=== PATIENT | male | born 1970 | race Caucasian/White ===

== ENCOUNTER → 2017-10-21 13:46 | Outpatient (CLI) | payer OTHER, SELFPAY ==
--- NOTE | 2017-10-21 13:51 | XR_ITS ---
XR wrist LT min 3V HISTORY: ITS.REASON: left wrist pain after fall (Pain distal ulna) ORDERING PHYSICIAN: VENKATA Shelby PATIENT AGE: 47 years COMPARISON: None FINDINGS: No fracture or dislocation. No lytic or blastic change. There is normal mineralization.. There are mild osteoarthritic changes at the first metacarpocarpal joint. A small cystic area is present in the mid aspect of the capitate 2 mm. IMPRESSION: No acute fracture
== END ==
PROVIDERS: PCP Emergency Medicine; Visit Provider Physician Assistant
DX: S69.92XA Unspecified injury of left wrist, hand and finger(s), initial encounter (principal)
CPT/HCPCS: 73110

== ENCOUNTER 2018-03-06 13:23 | Inpatient (IN) ==
--- NOTE | 2018-03-06 13:42 | Emergency Department Note ---
ED Disposition Clinical Impression: Diverticulitis Disposition: Admitted as Observation Condition on Discharge: Good Instructions: DI for Acute Abdomen Referrals: Monty Nur MD [Primary Care Provider] - Time of Disposition: 15:23 - Critical Care Critical Care Time: No Attestation: On , the high probability of a clinically significant, sudden or life threatening deterioration of the following system(s) required my full and direct attention, intervention and personal management. The time I documented below is in addition to time spent performing reported procedures but includes the following listed in this critical care notation. Medical Decision Making - Medical Records MR Comment: 306 pt with elevated wbc count, and stranding in llq, cw diverticulitis, ? free air is noted, awaiting official read. 319 has come back with diveticulitis with contained perf. call to PMD and surgery. have dw patient , including need for followup to exclude Cancer. 320 have discussed with Myles MCGOWAN surgery conciliator. read off reading and levaquin flagyl. 322 dw [place]. - [place] Inquiry Pt receiving controlled substance: No Vital Signs: 03/06/18 13:33 Temperature 99.2 F Temperature Source Temporal Artery Scan Pulse Rate [Right Brachial] 110 H Respiratory Rate 18 Blood Pressure [RIGHT ARM] 140/87 Blood Pressure Mean [RIGHT ARM] 104 Blood Pressure Source [RIGHT ARM] Automatic Cuff Blood Pressure Position [RIGHT ARM] Sitting 02 Sat by Pulse Oximetry 97 Oxygen Delivery Method Room Air - Lab Data Lab Results 03/06/18 13:40: WBC 16.2 H, RBC 4.95, Hgb 14.2, Hct 44.9, MCV 90.8, MCH 28.6, MCHC 31.5 L, RDW 12.9, Plt Count 217, MPV 8.2, Neut % (Auto) 77.9, Lymph % (Auto ) 14.4, [place] % (Auto) 6.4, Eos % (Auto) 1.0, Baso % (Auto) 0.3, Neut # (Auto) 12.6 H, Lymph # (Auto) 2.3, [place] # (Auto) 1.0, Eos # (Auto) 0.2, Baso # (Auto) 0.1, Total Counted 100, Neutrophils % (Manual) 74, Lymphocytes % (Manual) 12, Atypical Lymphs % 1.0, Monocytes % (Manual) 12 H, Eosinophils % (Manual) 1, Platelet Estimate Normal, RBC Morphology Normal 03/06/18 13:40: Sodium 140, Potassium 4.0, Chloride 103, Carbon Dioxide 27, Anion Gap 14.0, BUN 13, Creatinine 1.11, Estimated Creat Clear 135, Estimated GFR 71, Est GFR ( Amer) 86, Glucose 110 H, Calcium 9.1, Total Bilirubin 1.0, AST 15, ALT 42, Alkaline Phosphatase 79, Total Protein 8.2, Albumin 3.7, Globulin 4.5 H, Albumin/Globulin Ratio 0.8 L, Amylase 55, Lipase 140 Result diagrams: 03/06/18 13:40 03/06/18 13:40 Orders (Tests/Meds): ED MEDICATIONS Generic Name Dose Route Start Last Admin Trade Name Freq PRN Reason Stop Dose Admin Levofloxacin/Dextrose 750 mg in 150 mls @ 100 mls/hr 03/06/18 15:01 Levofloxacin 750mg/150ml Premix IV 03/06/18 16:30 ONCE ONE Protocol Metronidazole 100 mls @ 100 mls/hr 03/06/18 15:02 Flagyl 500mg/100ml Ivpb IV 03/06/18 16:01 ONCE ONE Protocol Discontinued Medications Generic Name Dose Route Start Last Admin Trade Name Freq PRN Reason Stop Dose Admin Sodium Chloride 1,000 mls @ 999 mls/hr 03/06/18 13:45 03/06/18 14:09 Sod Chlor 0.9% 1000ml Bag IV 03/06/18 14:45 999 mls/hr .[id number] JAZMIN Administration Ketorolac Tromethamine 15 mg 03/06/18 13:39 03/06/18 14:12 Toradol 30mg/Ml Vial IV 03/06/18 13:40 15 mg ONCE ONE Administration Ondansetron HCl 4 mg 03/06/18 13:44 03/06/18 14:12 Zofran 4mg/2ml Vial IV 03/06/18 13:45 4 mg ONCE ONE Administration ORDERS Category Date Time Status CT abdomen pelvis wo con Stat Cat Scan 03/06/18 13:38 Taken Urinalysis and Microscopic Stat Lab 03/06/18 13:38 Ordered General Adult HPI - General Chief complaint: Abdominal Pain Stated complaint: abd pain Time Seen by Provider: 03/06/18 13:35 Mode of Arrival: Ambulatory Limitations: No Limitations Description of Symptoms (Recalled from ER Triage Doc. by RN): COMPLAINING OF LEFT SIDE ABD PAIN AND LEFT SIDE IGUINAL/TESTICULAR PAIN THAT INCR. WITH URINATION; HISTORY OF DIVERTICULOSIS - History of Present Illness HPI narrative: Patient states yesterday morning he had onset of left lower quadrant abdominal pain crampy in nature moderate in severity has nausea denies vomiting or diarrhea denies fevers or chills he states the pain gets worse when he tries to urinate. Denies any radiation to the back he states it does radiate down to his left testicle. He denies any history of kidney stone he states he does have a history of diverticulosis. Denies fevers or chills - Related Data Home Medications Medication Instructions Recorded Confirmed No Known Home Medications 10/21/17 03/06/18 Allergies Allergy/AdvReac Type Severity Reaction Status Date / Time hydrocodone [HYDROCODONE] Allergy Unknown SEVERE Verified 03/06/18 13:38 HEADACHE [facility] History I have reviewed the patient's past medical history: Yes Laterality Cases: Left: Arthroscopy Knee Other Surgeries: Yes: Colonoscopy Amputation: No Fractures: No - Social History Educational Level: Completed High School Smoking Status: Former smoker Tobacco Type: cigarettes #Yrs smoked (if former smoker): 32 Smoking End Date: 04/2016 Alcohol Intake: current Alcohol Intake Frequency:: holidays/special occasions only Substance Use Type: denies use Occupational Status: employed - Psychiatric History Expresses thoughts of harming self/others: None Suicide Plan Description: No Plan Family Hx:: Cancer, Diabetes ROS Obtained: Yes All systems reviewed & no additional complaints Physical Exam - General General appearance: alert - Head Head exam: atraumatic - Eye Eye exam: Present: normal appearance - ENT ENT exam: Present: mucous membranes moist - Neck Neck exam: Present: normal inspection - Chest Chest inspection: Present: normal inspection - Respiratory Respiratory exam: Present: normal lung sounds bilaterally - Cardiovascular Cardiovascular exam: Present: regular rate - Abdominal Exam Abdominal exam: Present: soft. Absent: distention Abdominal tenderness: Present: LLQ - exam: Present: normal inspection. Absent: testicular tenderness - Extremities Exam Extremities exam: Present: normal inspection - Back Exam Back exam: Present: normal inspection Comment: Nonfocal costovertebral angle tenderness bilaterally - Neurological Exam Neurological exam: Present: alert - Psychiatric Psychiatric exam: Present: normal affect - Skin Skin exam: Present: warm - Lymphatic Lymphatic Findings: no adenopathy
[2018-03-06 13:53] LABS: Basophils # 0.1 K/mm3 (0-0.2); Basophils % 0.3 % (0.1-2.0); Eosinophils # 0.2 K/mm3 (0.0-0.4); Hematocrit 44.9 % (42.0-52.0); Hemoglobin 14.2 g/dL (14.1-18.0); Lymphocytes # 2.3 K/mm3 (0.7-4.5); Lymphocytes % 14.4 K/mm3 (10-50); Mean Corpuscular HGB Conc 31.5 g/dL (31.8-35.4); Mean Corpuscular Hemoglobin 28.6 pg (27.0-31.2); Mean Corpuscular Volume 90.8 fl (80-94); Mean Platelet Volume 8.2 fl (7.4-10.4); Monocytes % 6.4 % (1.7-9.3); Neutrophils # 12.6 K/mm3 (1.8-7.8); Neutrophils % 77.9 % (37.0-80.0); Platelet Count 217 K/mm3 (142-424); Red Blood Count 4.95 M/mm3 (4.60-6.20); Red Cell Distribution Width 12.9 % (11.5-17.5); White Blood Count 16.2 K/mm3 (4.8-10.8)
[2018-03-06 14:05] LABS: Albumin Level 3.7 gm/dL (3.4-5.0); Albumin/Globulin Ratio 0.8 (1.1-1.8); Calcium 9.1 mg/dL (8.5-10.1); Globulin 4.5 gm/dl (1.3-3.2); Total Protein,Serum 8.2 gm/dL (6.4-8.2)
[2018-03-06 14:08] LABS: Eosinophils % 1 % (0-3); Lymphocytes % 12 % (10-50); Monocytes % 12 % (2-9); Neutrophils % 74 % (42-76); RBC Morphology Normal; Total Cells Counted 100
[2018-03-06 17:24] LABS: Microscopic, Urine URINE MICROSCOPIC (MICROSCOPIC)
[2018-03-06 17:25] LABS: Appearance,Urine CLEAR (Clear); Bilirubin,Urine Negative (Negative); Blood, Urine 2+ (Negative); Color,Urine YELLOW (Yellow); Glucose,Urine (UA) Negative (Negative); Ketones,Urine Negative (Negative); Leukocyte Esterase,Urine Negative (Negative); Protein,Urine Negative (Negative); Specific Gravity, Urine 1.025 (1.005-1.030); Urobilinogen,Urine 0.2 EU/dl (0.2)
[2018-03-06 17:27] LABS: Mucus,Urine 2+ /lpf
--- NOTE | 2018-03-06 18:11 | Consult Report ---
*Admission Date: 03/06/18 *Chief complaint: Abdominal pain *History of present illness: This is a 47-year-old gentleman seen in consultation after presenting to the emergency department with abdominal pain. He had radiographic evidence of diverticulitis with a small focus of extraluminal air. The surgical service was consulted. Please see history of present illness forwarded from his emergency room visit below. Patient states yesterday morning he had onset of left lower quadrant abdominal pain crampy in nature moderate in severity has nausea denies vomiting or diarrhea denies fevers or chills he states the pain gets worse when he tries to urinate. Denies any radiation to the back he states it does radiate down to his left testicle. He denies any history of kidney stone he states he does have a history of diverticulosis. Denies fevers or chills NOTE: The patient does report a similar occurrence requiring hospitalization in 2003. He has been maintained on a high-fiber diet and Metamucil since this occurrence and has been asymptomatic until now. Review of Systems - Constitutional Denies chills - Eyes Denies change in vision - *Cardiovascular Denies chest pain - *Respiratory Denies cough - *Gastrointestinal Reports abdominal pain, Denies bright, red blood in stools, Denies black, tarry stools, Denies vomiting - Hematologic/Lymphatic Denies easy bleeding [facility] History Medical History: Denies:: Asthma, Coronary Artery Disease, Hepatitis Laterality Cases: Left: Arthroscopy Knee Other Surgeries: Yes: Colonoscopy Amputation: No Fractures: No - *Social History Educational Level: Completed College Smoking Status: Former smoker Tobacco Type: cigarettes #Yrs smoked (if former smoker): 32 Smoking End Date: 04/2016 Alcohol Intake: never Alcohol Intake Frequency:: holidays/special occasions only Substance Use Type: denies use Occupational Status: employed Housing: house Household Members: spouse - Psychiatric History Expresses thoughts of harming self/others: None Suicide Plan Description: No Plan *Family Hx:: Cancer, Diabetes Meds Home Medications Medication Instructions Recorded Confirmed Type No Known Home Medications 10/21/17 03/06/18 History Allergies Allergy/AdvReac Type Severity Reaction Status Date / Time hydrocodone [HYDROCODONE] Allergy Unknown SEVERE Verified 03/06/18 13:38 HEADACHE Exam Vital signs and Labs for Last 24 Hours: Temp Pulse Resp BP Pulse Ox 98.3 F 95 H 22 141/83 97 03/06/18 15:58 03/06/18 15:58 03/06/18 15:58 03/06/18 15:58 03/06/18 15:58 Laboratory Results - last 24 hr 03/06/18 13:40: WBC 16.2 H, RBC 4.95, Hgb 14.2, Hct 44.9, MCV 90.8, MCH 28.6, MCHC 31.5 L, RDW 12.9, Plt Count 217, MPV 8.2, Neut % (Auto) 77.9, Lymph % (Auto ) 14.4, [place] % (Auto) 6.4, Eos % (Auto) 1.0, Baso % (Auto) 0.3, Neut # (Auto) 12.6 H, Lymph # (Auto) 2.3, [place] # (Auto) 1.0, Eos # (Auto) 0.2, Baso # (Auto) 0.1, Total Counted 100, Neutrophils % (Manual) 74, Lymphocytes % (Manual) 12, Atypical Lymphs % 1.0, Monocytes % (Manual) 12 H, Eosinophils % (Manual) 1, Platelet Estimate Normal, RBC Morphology Normal 03/06/18 13:40: Sodium 140, Potassium 4.0, Chloride 103, Carbon Dioxide 27, Anion Gap 14.0, BUN 13, Creatinine 1.11, Estimated Creat Clear 135, Estimated GFR 71, Est GFR ( Amer) 86, Glucose 110 H, Calcium 9.1, Total Bilirubin 1.0, AST 15, ALT 42, Alkaline Phosphatase 79, Total Protein 8.2, Albumin 3.7, Globulin 4.5 H, Albumin/Globulin Ratio 0.8 L, Amylase 55, Lipase 140 03/06/18 17:15: Urine Color Yellow, Urine Appearance Clear, Urine pH 6.0, Ur Specific [place] 1.025, Urine Protein Negative, Urine Glucose (UA) Negative, Urine Ketones Negative, Urine Blood 2+, Urine Nitrate Negative, Urine Bilirubin Negative, Urine Urobilinogen 0.2, Ur Leukocyte Esterase Negative, Urine RBC 10- 20, Urine WBC 3-5, Urine Mucus 2+ I & O for Last 24 hours: Intake & Output 03/04/18 03/05/18 03/06/18 03/07/18 11:59 11:59 11:59 11:59 Intake Total 0 / 0 Output Total 400 / 400 Balance -400 / -400 Weight 263 lb - Constitutional no acute distress - *Routine Neck Exam Present: full ROM - *Routine Respiratory Exam Absent: respiratory distress - *Routine Abdominal Exam Present: soft, tenderness Comments: LLQ Results - Labs 03/06/18 13:40 03/06/18 13:40 Laboratory Results - last 24 hr 03/06/18 13:40: WBC 16.2 H, RBC 4.95, Hgb 14.2, Hct 44.9, MCV 90.8, MCH 28.6, MCHC 31.5 L, RDW 12.9, Plt Count 217, MPV 8.2, Neut % (Auto) 77.9, Lymph % (Auto ) 14.4, [place] % (Auto) 6.4, Eos % (Auto) 1.0, Baso % (Auto) 0.3, Neut # (Auto) 12.6 H, Lymph # (Auto) 2.3, [place] # (Auto) 1.0, Eos # (Auto) 0.2, Baso # (Auto) 0.1, Total Counted 100, Neutrophils % (Manual) 74, Lymphocytes % (Manual) 12, Atypical Lymphs % 1.0, Monocytes % (Manual) 12 H, Eosinophils % (Manual) 1, Platelet Estimate Normal, RBC Morphology Normal 03/06/18 13:40: Sodium 140, Potassium 4.0, Chloride 103, Carbon Dioxide 27, Anion Gap 14.0, BUN 13, Creatinine 1.11, Estimated Creat Clear 135, Estimated GFR 71, Est GFR ( Amer) 86, Glucose 110 H, Calcium 9.1, Total Bilirubin 1.0, AST 15, ALT 42, Alkaline Phosphatase 79, Total Protein 8.2, Albumin 3.7, Globulin 4.5 H, Albumin/Globulin Ratio 0.8 L, Amylase 55, Lipase 140 03/06/18 17:15: Urine Color Yellow, Urine Appearance Clear, Urine pH 6.0, Ur Specific [place] 1.025, Urine Protein Negative, Urine Glucose (UA) Negative, Urine Ketones Negative, Urine Blood 2+, Urine Nitrate Negative, Urine Bilirubin Negative, Urine Urobilinogen 0.2, Ur Leukocyte Esterase Negative, Urine RBC 10- 20, Urine WBC 3-5, Urine Mucus 2+ - Imaging CT scan - abdomen: report reviewed, image reviewed CT scan - pelvis: report reviewed, image reviewed Assessment and Plan (1) Diverticulitis Current visit: Yes Status: Acute Category: Medical Code(s): K57.92 - Diverticulitis of intestine, part unspecified, without perforation or abscess without bleeding Small focus of extraluminal air. Continue IV antibiotics as ordered per emergency room physician Serial abdominal exams Repeat CBC in a.m. Clear liquids with no carbonation for now If the patient continues to improve, he will benefit from colonoscopy in 6-8 weeks. If he regresses, he may require urgent intervention during this hospitalization. I discussed the risks and benefits of surgical intervention ( in particular elective surgery as this is his second occurrence requiring hospitalization). He has been without symptoms since his 2003 hospitalization. He understands the risks and benefits and states that he "only wants surgery if it is absolutely necessary".
[2018-03-07 07:12] LABS: Basophils % 0.2 % (0.1-2.0); Eosinophils # 0.1 K/mm3 (0.0-0.4); Eosinophils % 0.4 % (0.1-12.0); Hematocrit 39.4 % (42.0-52.0); Lymphocytes # 1.8 K/mm3 (0.7-4.5); Lymphocytes % 12.3 K/mm3 (10-50); Mean Corpuscular HGB Conc 31.4 g/dL (31.8-35.4); Mean Corpuscular Hemoglobin 28.7 pg (27.0-31.2); Mean Corpuscular Volume 91.4 fl (80-94); Mean Platelet Volume 8.5 fl (7.4-10.4); Monocytes # 1.2 K/mm3 (0.1-1.0); Monocytes % 8.2 % (1.7-9.3); Neutrophils # 11.5 K/mm3 (1.8-7.8); Neutrophils % 78.9 % (37.0-80.0); Platelet Count 178 K/mm3 (142-424); Red Blood Count 4.31 M/mm3 (4.60-6.20); Red Cell Distribution Width 12.8 % (11.5-17.5); White Blood Count 14.6 K/mm3 (4.8-10.8)
[2018-03-07 07:30] LABS: Hemoglobin 12.5 g/dL (14.1-18.0)
--- NOTE | 2018-03-07 07:34 | Pharmacy Consult Notes ---
[facility] Pharmacy VTE Monitoring - Patient Demographics Admission date: 03/06/18 Report Date: 03/07/18 Time: 07:34 Allergies/Adverse Reactions: Patient Allergies hydrocodone [HYDROCODONE] Allergy (Unknown, Verified 03/06/18 13:38) SEVERE HEADACHE Height: 1.91 m Weight: 119.295 kg Patient Problems: Current Active Problems Diverticulitis (Acute) - VTE Risk Labs: VTE Related Lab Results Hgb 12.5 g/dL (14.1-18.0) L D 03/07/18 06:13 Hct 39.4 % (42.0-52.0) L 03/07/18 06:13 Plt Count 178 K/mm3 (142-424) 03/07/18 06:13 BUN 13 mg/dL (7-18) 03/06/18 13:40 Creatinine 1.11 mg/dL (0.70-1.30) 03/06/18 13:40 Estimated Creat Clear 135 mL/min (0-300) 03/06/18 13:40 Was VTE Risk Assessment Performed: Yes VTE Score: 1 VTE Risk Level: Very Low Risk - Prophylaxis VTE Prophylaxis Ordered?: Yes Types of VTE Prophylaxis: TEDS Knee High Location of Applied Device: Bilateral Lower Extremeties - VTE Diagnosis Confirmed Treatment or plan recommended: Continue Current Treatment
--- NOTE | 2018-03-07 07:59 | History & Physical Report ---
*Admission Date: 03/06/18 *History of present illness: This is a 47-year-old gentleman seen in consultation after presenting to the emergency department with abdominal pain. He had radiographic evidence of diverticulitis with a small focus of extraluminal air. The surgical service was consulted. Please see history of present illness forwarded from his emergency room visit below. Patient states yesterday morning he had onset of left lower quadrant abdominal pain crampy in nature moderate in severity has nausea denies vomiting or diarrhea denies fevers or chills he states the pain gets worse when he tries to urinate. Denies any radiation to the back he states it does radiate down to his left testicle. He denies any history of kidney stone he states he does have a history of diverticulosis. Denies fevers or chills NOTE: The patient does report a similar occurrence requiring hospitalization in 2003. He has been maintained on a high-fiber diet and Metamucil since this occurrence and has been asymptomatic until now. tient states yesterday morning he had onset of left lower quadrant abdominal pain crampy in nature moderate in severity has nausea denies vomiting or diarrhea denies fevers or chills he states the pain gets worse when he tries to urinate. Denies any radiation to the back he states it does radiate down to his left testicle. He denies any history of kidney stone he states he does have a history of diverticulosis. Denies fevers or chills [facility] History I have reviewed the patient's past medical history: Yes Medical History: Denies:: Asthma, Coronary Artery Disease, Hepatitis Laterality Cases: Left: Arthroscopy Knee Other Surgeries: Yes: Colonoscopy Amputation: No Fractures: No - *Social History Educational Level: Completed College Smoking Status: Former smoker Tobacco Type: cigarettes #Yrs smoked (if former smoker): 32 Smoking End Date: 04/2016 Alcohol Intake: never Alcohol Intake Frequency:: holidays/special occasions only Substance Use Type: denies use Occupational Status: employed Housing: house Household Members: spouse - Psychiatric History Expresses thoughts of harming self/others: None Suicide Plan Description: No Plan *Family Hx:: Cancer, Diabetes Review of Systems - Review of Systems Review of systems:: pertinent systems reviewed and negative unless documented below - Constitutional Denies fever(s) - Eyes Denies change in vision - ENT Denies neck pain - *Cardiovascular Denies chest pain - *Respiratory Denies cough - *Gastrointestinal Reports abdominal pain - *Genitourinary Denies blood in urine - *Musculoskeletal Denies joint pain - Integumentary/Breasts Denies rash - *Neurologic Denies sensory deficit Meds Home Medications Medication Instructions Recorded Confirmed Type No Known Home Medications 10/21/17 03/06/18 History Allergies Allergy/AdvReac Type Severity Reaction Status Date / Time hydrocodone [HYDROCODONE] Allergy Unknown SEVERE Verified 03/06/18 13:38 HEADACHE Exam Vital signs and Labs for Last 24 Hours: Temp Pulse Resp BP Pulse Ox 98.4 F 94 H 18 127/75 95 03/07/18 04:00 03/07/18 04:00 03/07/18 04:00 03/07/18 04:00 03/07/18 04:00 Laboratory Results - last 24 hr 03/06/18 13:40: WBC 16.2 H, RBC 4.95, Hgb 14.2, Hct 44.9, MCV 90.8, MCH 28.6, MCHC 31.5 L, RDW 12.9, Plt Count 217, MPV 8.2, Neut % (Auto) 77.9, Lymph % (Auto ) 14.4, [place] % (Auto) 6.4, Eos % (Auto) 1.0, Baso % (Auto) 0.3, Neut # (Auto) 12.6 H, Lymph # (Auto) 2.3, [place] # (Auto) 1.0, Eos # (Auto) 0.2, Baso # (Auto) 0.1, Total Counted 100, Neutrophils % (Manual) 74, Lymphocytes % (Manual) 12, Atypical Lymphs % 1.0, Monocytes % (Manual) 12 H, Eosinophils % (Manual) 1, Platelet Estimate Normal, RBC Morphology Normal 03/06/18 13:40: Sodium 140, Potassium 4.0, Chloride 103, Carbon Dioxide 27, Anion Gap 14.0, BUN 13, Creatinine 1.11, Estimated Creat Clear 135, Estimated GFR 71, Est GFR ( Amer) 86, Glucose 110 H, Calcium 9.1, Total Bilirubin 1.0, AST 15, ALT 42, Alkaline Phosphatase 79, Total Protein 8.2, Albumin 3.7, Globulin 4.5 H, Albumin/Globulin Ratio 0.8 L, Amylase 55, Lipase 140 03/06/18 17:15: Urine Color Yellow, Urine Appearance Clear, Urine pH 6.0, Ur Specific [place] 1.025, Urine Protein Negative, Urine Glucose (UA) Negative, Urine Ketones Negative, Urine Blood 2+, Urine Nitrate Negative, Urine Bilirubin Negative, Urine Urobilinogen 0.2, Ur Leukocyte Esterase Negative, Urine RBC 10- 20, Urine WBC 3-5, Urine Mucus 2+ 03/07/18 06:13: WBC 14.6 H, RBC 4.31 L, Hgb 12.5 L D, Hct 39.4 L, MCV 91.4, MCH 28.7, MCHC 31.4 L, RDW 12.8, Plt Count 178, MPV 8.5, Neut % (Auto) 78.9, Lymph % (Auto) 12.3, [place] % (Auto) 8.2, Eos % (Auto) 0.4, Baso % (Auto) 0.2, Neut # ( Auto) 11.5 H, Lymph # (Auto) 1.8, [place] # (Auto) 1.2 H, Eos # (Auto) 0.1, Baso # (Auto) 0.0 I & O for Last 24 hours: Intake & Output 03/04/18 03/05/18 03/06/18 03/07/18 11:59 11:59 11:59 11:59 Intake Total 1450 / 1450 Output Total 400 / 400 Balance 1050 / 1050 Weight 263 lb - Constitutional no acute distress - *Routine HEENT Exam Head: Present: normocephalic Eye: Present: EOMI, PERRL ENT: Present: mucous membranes dry - *Routine Neck Exam Present: supple - *Routine Respiratory Exam Present: CTA bilaterally - *Routine Cardiovascular Exam Present: RRR, murmur - *Routine Abdominal Exam Present: soft, tenderness - *Routine Extremities Exam Present: full ROM - *Routine Skin Exam Present: intact - *Routine Neurological Exam Present: alert, oriented X3, CN II-XII intact - Routine Psychiatric Exam Present: normal affect H&P: Result - Labs Labs: Short CBC 03/06/18 03/07/18 Range/Units 13:40 06:13 WBC 16.2 H 14.6 H (4.8-10.8) K/mm3 Hgb 14.2 12.5 L D (14.1-18.0) g/dL Hct 44.9 39.4 L (42.0-52.0) % Plt Count 217 178 (142-424) K/mm3 BMP 03/06/18 13:40 Sodium 140 Potassium 4.0 Chloride 103 Carbon Dioxide 27 BUN 13 Creatinine 1.11 Glucose 110 H Calcium 9.1 Liver Function 03/06/18 Range/Units 13:40 Total Bilirubin 1.0 (0.2-1.0) mg/dL AST 15 (15-37) U/L ALT 42 (12-78) U/L Alkaline Phosphatase 79 (46-116) U/L Albumin 3.7 (3.4-5.0) gm/dL Urine 03/06/18 Range/Units 17:15 Urine Color Yellow (Yellow) Urine Appearance Clear (Clear) Urine pH 6.0 (5.0-8.5) Ur Specific [place] 1.025 (1.005-1.030) Urine Protein Negative (Negative) Urine Glucose (UA) Negative (Negative) Assessment and Plan (1) Diverticulitis Current visit: Yes Status: Acute Category: Medical Code(s): K57.92 - Diverticulitis of intestine, part unspecified, without perforation or abscess without bleeding
--- NOTE | 2018-03-07 08:13 | Progress Note ---
Subjective Patient reports: other (A little worse since last night...about the same as "in the ER") Exam Vital signs and Labs for Last 24 Hours: Temp Pulse Resp BP Pulse Ox 98.4 F 94 H 18 127/75 95 03/07/18 04:00 03/07/18 04:00 03/07/18 04:00 03/07/18 04:00 03/07/18 04:00 Laboratory Results - last 24 hr 03/06/18 13:40: WBC 16.2 H, RBC 4.95, Hgb 14.2, Hct 44.9, MCV 90.8, MCH 28.6, MCHC 31.5 L, RDW 12.9, Plt Count 217, MPV 8.2, Neut % (Auto) 77.9, Lymph % (Auto ) 14.4, [place] % (Auto) 6.4, Eos % (Auto) 1.0, Baso % (Auto) 0.3, Neut # (Auto) 12.6 H, Lymph # (Auto) 2.3, [place] # (Auto) 1.0, Eos # (Auto) 0.2, Baso # (Auto) 0.1, Total Counted 100, Neutrophils % (Manual) 74, Lymphocytes % (Manual) 12, Atypical Lymphs % 1.0, Monocytes % (Manual) 12 H, Eosinophils % (Manual) 1, Platelet Estimate Normal, RBC Morphology Normal 03/06/18 13:40: Sodium 140, Potassium 4.0, Chloride 103, Carbon Dioxide 27, Anion Gap 14.0, BUN 13, Creatinine 1.11, Estimated Creat Clear 135, Estimated GFR 71, Est GFR ( Amer) 86, Glucose 110 H, Calcium 9.1, Total Bilirubin 1.0, AST 15, ALT 42, Alkaline Phosphatase 79, Total Protein 8.2, Albumin 3.7, Globulin 4.5 H, Albumin/Globulin Ratio 0.8 L, Amylase 55, Lipase 140 03/06/18 17:15: Urine Color Yellow, Urine Appearance Clear, Urine pH 6.0, Ur Specific [place] 1.025, Urine Protein Negative, Urine Glucose (UA) Negative, Urine Ketones Negative, Urine Blood 2+, Urine Nitrate Negative, Urine Bilirubin Negative, Urine Urobilinogen 0.2, Ur Leukocyte Esterase Negative, Urine RBC 10- 20, Urine WBC 3-5, Urine Mucus 2+ 03/07/18 06:13: WBC 14.6 H, RBC 4.31 L, Hgb 12.5 L D, Hct 39.4 L, MCV 91.4, MCH 28.7, MCHC 31.4 L, RDW 12.8, Plt Count 178, MPV 8.5, Neut % (Auto) 78.9, Lymph % (Auto) 12.3, [place] % (Auto) 8.2, Eos % (Auto) 0.4, Baso % (Auto) 0.2, Neut # ( Auto) 11.5 H, Lymph # (Auto) 1.8, [place] # (Auto) 1.2 H, Eos # (Auto) 0.1, Baso # (Auto) 0.0 I & O for Last 24 hours: Intake & Output 03/04/18 03/05/18 03/06/18 03/07/18 11:59 11:59 11:59 11:59 Intake Total 1450 / 1450 Output Total 400 / 400 Balance 1050 / 1050 Weight 263 lb - Constitutional no acute distress - *Routine Respiratory Exam Absent: respiratory distress - *Routine Cardiovascular Exam Present: RRR - *Routine Abdominal Exam Present: soft, tenderness Progress Note: A&P (1) Diverticulitis Status: Acute Assessment and plan: Stable on abx continue abx continue serial exams Current Visit: Yes
--- NOTE | 2018-03-08 07:10 | Progress Note ---
Subjective Patient reports: no new complaints (feels "a little better") Exam Vital signs and Labs for Last 24 Hours: Temp Pulse Resp BP Pulse Ox 97.8 F 74 16 113/70 93 L 03/08/18 04:00 03/08/18 04:00 03/08/18 04:00 03/08/18 04:00 03/08/18 04:00 Laboratory Results - last 24 hr 03/07/18 06:13: WBC 14.6 H, RBC 4.31 L, Hgb 12.5 L D, Hct 39.4 L, MCV 91.4, MCH 28.7, MCHC 31.4 L, RDW 12.8, Plt Count 178, MPV 8.5, Neut % (Auto) 78.9, Lymph % (Auto) 12.3, [place] % (Auto) 8.2, Eos % (Auto) 0.4, Baso % (Auto) 0.2, Neut # ( Auto) 11.5 H, Lymph # (Auto) 1.8, [place] # (Auto) 1.2 H, Eos # (Auto) 0.1, Baso # (Auto) 0.0 I & O for Last 24 hours: Intake & Output 03/05/18 03/06/18 03/07/18 03/08/18 11:59 11:59 11:59 11:59 Intake Total 2130 / 2130 780 / 780 Output Total 400 / 400 Balance 1730 / 1730 780 / 780 Weight 263 lb 263 lb 0.007 oz - Constitutional no acute distress - *Routine Respiratory Exam Absent: respiratory distress - *Routine Cardiovascular Exam Present: RRR - *Routine Abdominal Exam Present: soft Comments: somewhat less TTP Progress Note: A&P (1) Diverticulitis Status: Acute Assessment and plan: Slowly improving. Continue abx Repeat CBC in AM Full liquids Current Visit: Yes
--- NOTE | 2018-03-08 08:59 | Progress Note ---
Internal Medicine - PN: Subj *Date: 03/08/18 *Time: 08:54 Interval history: pt with continued pain but some improvement- saw surg this am Exam Vital signs and Labs for Last 24 Hours: Temp Pulse Resp BP Pulse Ox 98.9 F 87 18 135/89 96 03/08/18 07:27 03/08/18 07:27 03/08/18 07:27 03/08/18 07:27 03/08/18 07:27 I & O for Last 24 hours: Intake & Output 03/05/18 03/06/18 03/07/18 03/08/18 11:59 11:59 11:59 11:59 Intake Total 2130 / 2130 780 / 780 Output Total 400 / 400 Balance 1730 / 1730 780 / 780 Weight 263 lb 263 lb 0.007 oz - Constitutional no acute distress - *Routine HEENT Exam Head: Present: normocephalic Eye: Present: EOMI, PERRL ENT: Present: mucous membranes dry - *Routine Neck Exam Present: supple - *Routine Respiratory Exam Absent: respiratory distress - *Routine Cardiovascular Exam Present: RRR. Absent: murmur - *Routine Abdominal Exam Present: tenderness - *Routine Extremities Exam Present: full ROM - *Routine Skin Exam Present: intact - *Routine Neurological Exam Present: alert, oriented X3, CN II-XII intact - Routine Psychiatric Exam Present: normal affect Assessment and Plan (1) Diverticulitis Current visit: Yes Status: Acute Category: Medical Code(s): K57.92 - Diverticulitis of intestine, part unspecified, without perforation or abscess without bleeding
[2018-03-09 06:55] LABS: Basophils % 0.3 % (0.1-2.0); Eosinophils # 0.2 K/mm3 (0.0-0.4); Hematocrit 39.6 % (42.0-52.0); Hemoglobin 12.6 g/dL (14.1-18.0); Lymphocytes # 1.6 K/mm3 (0.7-4.5); Lymphocytes % 21.2 K/mm3 (10-50); Mean Corpuscular HGB Conc 31.7 g/dL (31.8-35.4); Mean Corpuscular Hemoglobin 28.9 pg (27.0-31.2); Mean Corpuscular Volume 91.1 fl (80-94); Mean Platelet Volume 8.5 fl (7.4-10.4); Monocytes # 0.6 K/mm3 (0.1-1.0); Neutrophils # 5.2 K/mm3 (1.8-7.8); Neutrophils % 67.6 % (37.0-80.0); Platelet Count 216 K/mm3 (142-424); Red Blood Count 4.35 M/mm3 (4.60-6.20); Red Cell Distribution Width 12.4 % (11.5-17.5); White Blood Count 7.7 K/mm3 (4.8-10.8)
--- NOTE | 2018-03-09 08:46 | Progress Note ---
Subjective Patient reports: no new complaints Exam Vital signs and Labs for Last 24 Hours: Temp Pulse Resp BP Pulse Ox 98.1 F 73 18 135/87 97 03/09/18 08:00 03/09/18 08:00 03/09/18 08:00 03/09/18 08:00 03/09/18 08:00 Laboratory Results - last 24 hr 03/09/18 06:10: WBC 7.7 D, RBC 4.35 L, Hgb 12.6 L, Hct 39.6 L, MCV 91.1, MCH 28.9, MCHC 31.7 L, RDW 12.4, Plt Count 216, MPV 8.5, Neut % (Auto) 67.6, Lymph % (Auto) 21.2, [place] % (Auto) 8.0, Eos % (Auto) 3.0, Baso % (Auto) 0.3, Neut # ( Auto) 5.2, Lymph # (Auto) 1.6, [place] # (Auto) 0.6, Eos # (Auto) 0.2, Baso # (Auto ) 0.0 I & O for Last 24 hours: Intake & Output 03/06/18 03/07/18 03/08/18 03/09/18 11:59 11:59 11:59 11:59 Intake Total 2130 / 2130 1929 / 1929 4826 / 4826 Output Total 400 / 400 Balance 1730 / 1730 1929 / 1929 4826 / 4826 Weight 263 lb 263 lb 0.007 oz Narrative: WBC now normal - Constitutional no acute distress - *Routine Cardiovascular Exam Present: RRR - *Routine Abdominal Exam Present: soft (somewhat less TTP) Progress Note: A&P (1) Diverticulitis Status: Acute Assessment and plan: Improving on antibiotics Okay from surgical standpoint for discharge home with close follow-up Continue antibiotics as outpatient (OK to transition to p.o.) Soft/low residue diet Current Visit: Yes
--- NOTE | 2018-03-09 09:02 | Discharge Summary ---
General - General Admission date:: 03/06/18 Discharge date: 03/09/18 HPI HPI: This is a 47-year-old gentleman seen in consultation after presenting to the emergency department with abdominal pain. He had radiographic evidence of diverticulitis with a small focus of extraluminal air. The surgical service was consulted. Please see history of present illness forwarded from his emergency room visit below. Patient states yesterday morning he had onset of left lower quadrant abdominal pain crampy in nature moderate in severity has nausea denies vomiting or diarrhea denies fevers or chills he states the pain gets worse when he tries to urinate. Denies any radiation to the back he states it does radiate down to his left testicle. He denies any history of kidney stone he states he does have a history of diverticulosis. Denies fevers or chills NOTE: The patient does report a similar occurrence requiring hospitalization in 2003. He has been maintained on a high-fiber diet and Metamucil since this occurrence and has been asymptomatic until now. tient states yesterday morning he had onset of left lower quadrant abdominal pain crampy in nature moderate in severity has nausea denies vomiting or diarrhea denies fevers or chills he states the pain gets worse when he tries to urinate. Denies any radiation to the back he states it does radiate down to his left testicle. He denies any history of kidney stone he states he does have a history of diverticulosis. Denies fevers or chills Hospital Course Hospital Course: pt with slow but steady improvement with ivf and abx with improvement in diet and was seen by surg and will have abx and will follow up with dr hensley next week Objective Vital signs: Temp Pulse Resp BP Pulse Ox 98.1 F 73 18 135/87 97 03/09/18 08:00 03/09/18 08:00 03/09/18 08:00 03/09/18 08:00 03/09/18 08:00 no acute distress - *Routine HEENT Exam Head: Present: normocephalic Eye: Present: EOMI, PERRL ENT: Present: mucous membranes dry - *Routine Neck Exam Present: supple - *Routine Respiratory Exam Present: CTA bilaterally - *Routine Cardiovascular Exam Present: RRR. Absent: murmur - *Routine Abdominal Exam Present: soft, tenderness - *Routine Extremities Exam Present: full ROM - *Routine Skin Exam Present: intact - *Routine Neurological Exam Present: alert, oriented X3, CN II-XII intact - Routine Psychiatric Exam Present: normal affect Results Labs on day of discharge: Labs from last 24 hours 03/09/18 06:10 WBC 7.7 D RBC 4.35 L Hgb 12.6 L Hct 39.6 L MCV 91.1 MCH 28.9 MCHC 31.7 L RDW 12.4 Plt Count 216 MPV 8.5 Neut % (Auto) 67.6 Lymph % (Auto) 21.2 [place] % (Auto) 8.0 Eos % (Auto) 3.0 Baso % (Auto) 0.3 Neut # (Auto) 5.2 Lymph # (Auto) 1.6 [place] # (Auto) 0.6 Eos # (Auto) 0.2 Baso # (Auto) 0.0 DS: Diagnosis - Discharge Diagnosis (1) Diverticulitis Status: Acute Discharge Plan - Patient Discharge Instructions ACTIVITY: Continue current activity DIET: continue same diet, other (soft / low residue diet) - Follow up Plan Follow up with: Fabian Hensley MD [Staff Physician] - 1 week Disposition: Home, Self-Prison Medications: Home Medications Medication Instructions Recorded Confirmed Type No Known Home Medications 10/21/17 03/06/18 History Prescriptions/Medication Reconciliation: New levoFLOXacin [Levaquin 500mg tab] 500 mg PO DAILY #14 tab metroNIDAZOLE [Flagyl] 500 mg PO TID 14 Days tablet metroNIDAZOLE [Flagyl] 500 mg PO TID 14 Days #42 tab levoFLOXacin [Levaquin 500mg tab] 500 mg PO DAILY #14 tab No Action No Known Home Medications
== END 2018-03-09 11:01 | disposition home or self-care (01) ==
LOC: 2ND 13:23 → ER 13:23 → OBSVTOIN 15:50 → 2ND 15:52
PROVIDERS: ADMIT Emergency Medicine; ATTEND Emergency Medicine
CPT/HCPCS: 36415; 74176; 80053; 81001; 82150; 83690; 85007; 85025; 96365; 96366; 96375; 99283; J1956; J2405

== ENCOUNTER → 2018-08-18 15:22 | Outpatient (CLI) | payer OTHER, SELFPAY ==
--- NOTE | 2018-08-18 15:24 | MR_ITS ---
MR shoulder LT wo con HISTORY:Left shoulder pain radiating down the arm with weakness ITS.REASON: exclude a rotator cuff tear ORDERING PHYSICIAN: Lan Farr MD PATIENT AGE: 48 years Comparison: 08/02/2018 TECHNIQUE: Standard multiplanar multiecho sequences are performed without contrast. FINDINGS: There are mild hypertrophic changes of the acromioclavicular joint superiorly not resulting in subacromial stenosis. There is however some hypertrophic change along the inferior aspect of the acromion causing some mild subacromial stenosis. There is mild thickening of the supraspinatus and infraspinatus tendons but no evidence of rotator cuff tear. There is a triangular-shaped area of bone marrow edema in the humeral head measuring approximately 15 x 12 mm and may be due to an area of avascular necrosis. Edema is also noted in the greater tuberosity region nonspecific and may be seen with arthritic changes. There is thickening of the subscapularis tendon suggesting tendinopathy/tendinosis. The teres minor tendon has an unremarkable appearance. There is mild degree of motion artifact on the axial sequence. No obvious labral tear. IMPRESSION: 1. No evidence of rotator cuff tear. 2. Tendinopathy/tendinosis of the supraspinatus, infraspinatus, subscapularis tendons. 3. Irregular shaped area of bone marrow edema in the humeral head anteriorly which may be seen with avascular necrosis along with some edema also at the base of the greater tuberosity which may be seen with rotator cuff disease and arthritic change.
== END ==
PROVIDERS: PCP Emergency Medicine; Visit Provider Orthopaedic Surgery
DX: M75.42 Impingement syndrome of left shoulder (principal)
CPT/HCPCS: 73221

== ENCOUNTER 2018-10-20 09:00 | Outpatient (RCR) | payer OTHER, SELFPAY ==
--- NOTE | 2018-09-02 10:22 | HMH.OTOPEV ---
PHYSICIAN CERTIFICATION: I certify the specified therapy services for Rasheedjoseph Kelley Hayder are required, authorized, and reviewed every 30 days.
== END 2018-10-20 09:05 | disposition home or self-care (01) ==
LOC: OT 09:00
PROVIDERS: Visit Provider Orthopaedic Surgery
DX: M77.12 Lateral epicondylitis, left elbow (principal); M75.22 Bicipital tendinitis, left shoulder; M25.512 Pain in left shoulder
CPT/HCPCS: 97014; 97033; 97110; 97165; G0283

== ENCOUNTER → 2019-05-15 13:33 | Outpatient (CLI) | payer OTHER, SELFPAY ==
[2019-05-15 13:54] LABS: Basophils % 0.4 % (0.1-2.0); Eosinophils # 0.1 K/mm3 (0.0-0.4); Hematocrit 45.5 % (42.0-52.0); Hemoglobin 14.7 g/dL (14.1-18.0); Lymphocytes # 2.3 K/mm3 (0.7-4.5); Lymphocytes % 25.7 % (10-50); Mean Corpuscular HGB Conc 32.3 g/dL (31.8-35.4); Mean Corpuscular Hemoglobin 30.1 pg (27.0-31.2); Mean Corpuscular Volume 93.4 fl (80-94); Mean Platelet Volume 8.8 fl (7.4-10.4); Monocytes # 0.7 K/mm3 (0.1-1.0); Monocytes % 7.4 % (1.7-9.3); Neutrophils # 5.9 K/mm3 (1.8-7.8); Neutrophils % 65.4 % (37.0-80.0); Platelet Count 251 K/mm3 (142-424); Red Blood Count 4.88 M/mm3 (4.60-6.20); Red Cell Distribution Width 13.4 % (11.5-17.5)
[2019-05-15 14:38] LABS: Alanine Aminotransferase 64 U/L (12-78); Alkaline Phosphatase 102 U/L (46-116); Anion Gap 14.5 mEq/L (5-15); Aspartate Amino Transferase 31 U/L (15-37); Bilirubin,Total 0.3 mg/dL (0.2-1.0); Blood Urea Nitrogen 17 mg/dL (7-18); Calcium 9.3 mg/dL (8.5-10.1); Carbon Dioxide 27 mmol/L (21.0-32.0); Chloride 103 mmol/L (98-107); Chol/HDL Ratio 4.7 (1-3.5); Cholesterol 165 mg/dL (140-200); Creatinine,Serum 1.12 mg/dL (0.70-1.30); Estimated Glomerular Filt Rate 70 ml/min (>60); Free T4 (Free Thyroxine) 1.12 ng/dl (0.76-1.46); GFR (African American) 84 ML/MIN (>60); Globulin 3.9 gm/dl (1.3-3.2); Glucose 84 mg/dL (74-106); HDL Cholesterol 35 mg/dL (27-67); LDL Cholesterol 97 mg/dL (0-130); Potassium 4.5 mmoL/L (3.5-5.1); Sodium 140 mmol/L (136-145); Thyroid Stimulating Hormone 1.47 uIU/ml (0.358-3.740); Total Protein,Serum 7.9 gm/dL (6.4-8.2); Triglycerides 167 mg/dL (30-200); VLDL Cholesterol 33 mg/dL (0-40)
[2019-05-15 18:23] LABS: Hemoglobin A1C 6.7 % (0.0-7.0)
[2019-05-17 09:32] LABS: PSA, Free 1.21 ng/mL; Prostate Specific Ag 4.4 ng/mL (0.0-4.0); Vitamin D 25 Hydroxy 20.7 ng/mL (30.0-100.0)
== END ==
PROVIDERS: Visit Provider Emergency Medicine
DX: K57.92 Diverticulitis of intestine, part unspecified, without perforation or abscess without bleeding (principal); R53.83 Other fatigue; I10 Essential (primary) hypertension; E55.9 Vitamin D deficiency, unspecified; G47.33 Obstructive sleep apnea (adult) (pediatric)
CPT/HCPCS: 80053; 80061; 82652; 83036; 84153; 84154; 84439; 84443; 85025

== ENCOUNTER → 2019-08-29 13:28 | Outpatient (CLI) | payer OTHER, SELFPAY ==
[2019-08-30 11:47] LABS: PSA, Free 1.15 ng/mL; Prostate Specific Ag 5.4 ng/mL (0.0-4.0)
== END ==
PROVIDERS: Visit Provider Urology
DX: R97.20 Elevated prostate specific antigen [PSA] (principal)
CPT/HCPCS: 36415; 84153; 84154

== ENCOUNTER → 2021-06-04 13:47 | Outpatient (CLI) | payer BC, SELFPAY ==
--- NOTE | 2021-06-04 13:55 | XR_ITS ---
PROCEDURE: XR ELBOW RT MIN 3V CLINICAL INDICATION: rt elbow pain COMPARISON: No exams were available for comparison FINDINGS: No fracture or dislocation. No lytic or blastic change. There is normal mineralization. The joint spaces are well-preserved. No significant degenerative/arthritic changes. No erosive changes evident. Other findings:Curvilinear calcification is present along the medial epicondyle region of the distal humerus and could be related to old avulsion fracture or ligamentous injury. Enthesophyte is present at the olecranon process with minimal tissue swelling. No displaced fat pad apparent. IMPRESSION: Possible old fracture or ligamentous injury at the medial epicondyle Enthesophyte at the olecranon process with mild soft tissue swelling Dictated by: Efe Robles MD 06/04/2021 15:41 Efe Robles MD in [place] 06/04/2021 15:41
== END ==
PROVIDERS: PCP Emergency Medicine; Visit Provider Orthopaedic Surgery
DX: M25.521 Pain in right elbow (principal)
CPT/HCPCS: 73080

== ENCOUNTER → 2021-06-16 15:48 | Outpatient (CLI) | payer BC, SELFPAY | PROVIDERS: PCP Emergency Medicine; Visit Provider Nurse Practitioner | DX: Z20.822 Contact with and (suspected) exposure to COVID-19 (principal) | CPT/HCPCS: C9803; U0003; U0005 ==

== ENCOUNTER → 2021-06-18 12:45 | Outpatient (CLI) | payer BC, SELFPAY ==
--- NOTE | 2021-06-18 12:49 | XR_ITS ---
PROCEDURE: XR KNEE RT 4V CLINICAL INDICATION: right knee pain COMPARISON: CR [id number] KNEE-3 VIEWS-LT from 02/09/2017 FINDINGS: No fracture or dislocation. No lytic or blastic change. There is normal mineralization. There are moderate osteoarthritic changes of the lateral compartment with mild osteoarthritis of the medial compartment and patellofemoral joint. Mildly prominent osteophytes are present along the lateral joint space. Suspect a small knee joint effusion in the suprapatellar region. Other findings:None. IMPRESSION: Osteoarthritic change with small knee joint effusion Dictated by: Efe Robles MD 06/18/2021 17:25 Efe Robles MD in [place] 06/18/2021 17:25
--- NOTE | 2021-06-18 12:49 | XR_ITS ---
PROCEDURE: XR HIP RT 2-3V W/PELVIS CLINICAL INDICATION: right hip pain COMPARISON: CT ABDPELWO CT abdomen pelvis wo con from 03/06/2018 FINDINGS: There are mild osteoarthritic changes. Spurring is present along the humeral head/neck junction. There is a curvilinear lucency projecting over the femoral head slightly laterally. This may be related to a defect within the anterior labrum.. There are multiple small hyperdensities within the soft tissues about the proximal femur/hip suggesting soft tissue calcifications. Foreign bodies are an additional consideration. IMPRESSION: Mild osteoarthritic changes of the right hip. Lucency projecting along the superior aspect of the femoral head probably related to a bony defect within the anterior aspect of the acetabulum and may be due to an unfused ossification center or old fracture. Dictated by: Efe Robles MD 06/18/2021 17:24 Efe Robles MD in [place] 06/18/2021 17:24
== END ==
PROVIDERS: PCP Emergency Medicine; Visit Provider Orthopaedic Surgery
DX: M25.561 Pain in right knee (principal); M25.551 Pain in right hip
CPT/HCPCS: 73502; 73564

== ENCOUNTER → 2021-09-02 13:33 | Outpatient (CLI) | payer BC, SELFPAY ==
--- NOTE | 2021-09-02 13:40 | XR_ITS ---
PROCEDURE: XR ANKLE WT BEARING LT MIN 3V CLINICAL INDICATION: pain COMPARISON: No exams were available for comparison FINDINGS: There is mild bony hypertrophy the tip of the medial malleolus with a faint calcific density overlying the tip of the medial malleolus which could represent an avulsion injury age indeterminate. Small calcaneal spur and Achilles enthesophyte. Mild spurring of the anterior distal tibia IMPRESSION: Degenerative changes with possible avulsion fracture age indeterminate at the medial malleolus Dictated by: Efe Robles MD 09/02/2021 19:26 Efe Robles MD in [place] 09/02/2021 19:26
--- NOTE | 2021-09-02 13:40 | XR_ITS ---
PROCEDURE: XR ANKLE WT BEARING RT MIN 3V CLINICAL INDICATION: pain COMPARISON: No exams were available for comparison FINDINGS: Minimal bony hypertrophy at the tip the lateral malleolus medial malleolus. Prominent calcaneal spur. There is a faint triangular-shaped calcific density overlying the medial aspect of the tip of the lateral malleolus which could represent an avulsion fracture age indeterminate. IMPRESSION: Mild degenerative changes with possible avulsion fracture age indeterminate at the tip the lateral malleolus Dictated by: Efe Robles MD 09/02/2021 19:25 Efe Robles MD in [place] 09/02/2021 19:25
== END ==
PROVIDERS: PCP Emergency Medicine; Visit Provider Podiatrist
DX: M25.572 Pain in left ankle and joints of left foot (principal); M25.571 Pain in right ankle and joints of right foot
CPT/HCPCS: 73610

== ENCOUNTER → 2021-09-18 09:18 | Outpatient (CLI) | payer BC, SELFPAY ==
--- NOTE | 2021-09-18 09:33 | CT_ITS ---
PROCEDURE: CT ANKLE LT WO CON CLINICAL HISTORY: fracture evaluation COMPARISON: CR XR ANKLE WT BEARING LT MIN 3V from 09/02/2021 TECHNIQUE: Axial images obtained with sagittal and coronal reformats. All CT scans at the facility use one or more dose reduction, viz: automated exposure control, ma/kV adjustment per patient size (including targeted exams where dose is matched to indication, i.e. head), or iterative reconstruction technique. FINDINGS: There are numerous small well corticated calcific densities at the medial malleolar region. This may be sequela from old injury and or old fractures. Minimal spurring is present from the medial aspect of the talus. Spurring is also present at the anterior aspect of distal tibia. There is mild spurring also at the anterior aspect of the lateral malleolus. A thin rim like calcific density is noted at the distal tibia laterally contiguous with the small anterior spur and may represent capsular calcification versus an old avulsion injury. No definite acute fracture. The talar dome has an unremarkable appearance in the ankle mortise is preserved. There is some mild soft tissue swelling about the posterior tibialis tendon with a semilunar apparent of the posterior tibialis tendon which could indicate a partial tear. MRI may better evaluate. IMPRESSION: 1. No definite acute fracture. 2. Numerous well corticated calcific densities at the medial malleolar region suggesting old injury and or ununited ossicles. 3. Degenerative changes with osteophytes noted as detailed above. Small rim like calcification contiguous with the anterior distal tibia osteophyte and may represent continuation of that osteophyte versus capsular calcification. Avulsion injury felt to be less likely but not entirely excluded. 4. Semilunar appearance of the posterior tibialis tendon with overlying soft tissue swelling which could be seen with partial tear of the tendon and may be better evaluated with MRI. Dictated by: Efe Robles MD 09/20/2021 07:41 Efe Robles MD in [place] 09/20/2021 07:41
== END ==
PROVIDERS: PCP Emergency Medicine; Visit Provider Podiatrist
DX: M19.072 Primary osteoarthritis, left ankle and foot (principal); S82.52XA Displaced fracture of medial malleolus of left tibia, initial encounter for closed fracture
CPT/HCPCS: 73700

== ENCOUNTER → 2021-09-22 14:26 | Outpatient (CLI) | payer BC, SELFPAY | PROVIDERS: PCP Emergency Medicine; Visit Provider Nurse Practitioner | DX: U07.1 COVID-19 (principal) | CPT/HCPCS: C9803; U0003; U0005 ==

== ENCOUNTER → 2022-03-09 12:31 | Outpatient (CLI) | payer BC, SELFPAY ==
--- NOTE | 2022-03-09 13:06 | MR_ITS ---
FINAL REPORT CLINICAL HISTORY: chronic left ankle pain. medial sided ankle pain x1year. no recent injury or trauma. FINDINGS: Multiplanar MR imaging of the left ankle was performed without contrast. The bony structures are intact without evidence of fracture, bone bruise or marrow edema. Chronic calcification is seen inferior to the medial malleolus. No osteochondral lesion is identified. There is irregularity of the ATFL which may represent sequela of prior partial tear. There is a large intrasubstance tear of the posterior tibial tendon inferior to the medial malleolus is seen on series 3, images 17 and 18. There is posterior plantar fasciitis. The posterior plantar aponeurosis is intact. No significant joint effusion is seen. The musculature is intact. There is no evidence of soft tissue mass or cyst. IMPRESSION: Irregularity of the ATFL which may represent sequela of prior partial tear. Large intrasubstance tear of the posterior tibial tendon inferior to the medial malleolus. Posterior plantar fasciitis. Reviewed, Interpreted and Dictated by Jaylen Schuster III, MD Transcribed by Ludmila Connor Authenticated and [facility]
== END ==
PROVIDERS: PCP Emergency Medicine; Visit Provider Podiatrist
DX: M25.572 Pain in left ankle and joints of left foot (principal); M25.372 Other instability, left ankle; M66.872 Spontaneous rupture of other tendons, left ankle and foot; M76.822 Posterior tibial tendinitis, left leg; S82.52XA Displaced fracture of medial malleolus of left tibia, initial encounter for closed fracture
CPT/HCPCS: 73721

== ENCOUNTER → 2022-05-07 08:33 | Outpatient (CLI) | payer BC, SELFPAY ==
--- NOTE | 2022-05-07 08:42 | XR_ITS ---
FINAL REPORT CLINICAL HISTORY: preop exam, SOB on excertion FINDINGS: Two views of the chest were obtained. The heart size and pulmonary vascularity are within normal limits. The mediastinum is normal. No acute pulmonary abnormality is identified. There is no pneumothorax. The bony thorax is intact. IMPRESSION: No active cardiopulmonary disease. Reviewed, Interpreted and Dictated by Jaylen Schuster III, MD Transcribed by Maria Alejandra Plummer Authenticated and [facility]
--- NOTE | 2022-05-07 09:35 | ECG_ITS ---
APPROVED REPORT Exam: Resting ECG HR:81 bpm ECG Measurements Heart Rate 81 AXES DC 151 P 62 QRSd 98 QRS 18 QT 364 T 6 QTc 402 Conclusion SINUS RHYTHM Borderline LAD BORDERLINE ECG UNCONFIRMED REPORT Electronically signed by : Juliano Sprague MD 05/07/2022 13:39:29
[2022-05-07 09:46] LABS: Basophils # 0.1 K/mm3 (0-0.2); Eosinophils # 0.2 K/mm3 (0.0-0.4); Hematocrit 44.3 % (42.0-52.0); Lymphocytes # 1.9 K/mm3 (0.7-4.5); Lymphocytes % 22.9 % (10-50); Mean Corpuscular HGB Conc 31.7 g/dL (31.8-35.4); Mean Corpuscular Hemoglobin 29.2 pg (27.0-31.2); Mean Corpuscular Volume 92.2 fl (80-94); Mean Platelet Volume 8.8 fl (7.4-10.4); Monocytes # 0.7 K/mm3 (0.1-1.0); Monocytes % 8.1 % (1.7-9.3); Neutrophils # 5.5 K/mm3 (1.8-7.8); Platelet Count 220 K/mm3 (142-424); Red Cell Distribution Width 13.4 % (11.5-17.5); White Blood Count 8.4 K/mm3 (4.8-10.8)
[2022-05-07 10:19] LABS: Alanine Aminotransferase 44 U/L (12-78); Albumin Level 4.3 g/dl (3.5-5.0); Albumin/Globulin Ratio 1.4 (1.1-1.8); Alkaline Phosphatase 105 U/L (38-126); Anion Gap 10.1 mEq/L (5-15); Aspartate Amino Transferase 37 U/L (17-59); Blood Urea Nitrogen 22 mg/dl (9-20); Calcium 9.6 mg/dl (8.4-10.2); Carbon Dioxide 28 mmol/L (22.0-30.0); Chloride 106 mmol/L (98-107); Estimated Glomerular Filt Rate 70 ml/min (>60); GFR (African American) 85 ML/MIN (>60); Glucose 97 mg/dl (74-100); Potassium 4.1 mmoL/L (3.5-5.1); Sodium 140 mmol/L (136-145); Total Protein,Serum 7.3 g/dl (6.3-8.2)
[2022-05-07 10:20] LABS: Bilirubin,Total 0.1 mg/dl (0.2-1.3)
== END ==
PROVIDERS: PCP Family Medicine; Visit Provider Podiatrist
DX: Z01.818 Encounter for other preprocedural examination (principal); M25.572 Pain in left ankle and joints of left foot
CPT/HCPCS: 36415; 71046; 80053; 85025; 93005

== ENCOUNTER → 2022-05-11 15:00 | Outpatient (CLI) | payer BC, SELFPAY | PROVIDERS: PCP Family Medicine; Visit Provider Podiatrist | DX: Z01.812 Encounter for preprocedural laboratory examination (principal); Z20.822 Contact with and (suspected) exposure to COVID-19 | CPT/HCPCS: C9803; U0003; U0005 ==

== ENCOUNTER 2022-05-13 07:14 | Day surgery (SDC) | payer BC, SELFPAY ==
[2022-05-07 14:20] VITALS: BMI 79.9
[2022-05-13] VITALS (13 sets, daily range): BP systolic 134–155; BP diastolic 71–96; PULSE 77–97; RESP 12–18; TEMP 36.3–43; O2SAT 90–97
--- NOTE | 2022-05-13 08:07 | P.PN_ITS ---
[facility] Anesthesia Checklist - Patient Identification Patient Identification: Arm Band - Structural Data Admitted From: Home Planned Operative Procedure/s: tibial tendon repair Consent for Planned Operative Procedure(s) Verified: Yes - NPO Status Verified Time NPO: 00:00 - Additional verifications Anesthesia Reactions: No Hx Blood Transfusions: No Blood Transfusion Reaction: No - Airway Assessment C-Spine Mobility Assessed: Yes TMJ Mobility Assessed: Yes Dentition: Good Dentition - Neurological Assessment Level of Consciousness: Awake Hx Seizures: No Numbness or tingling in extremities: No - Anesthesia Plan Anesthesia Risk discussed: Yes Anesthesia Plan: Verified ASA Class: I Anesthesia Type: General w/block [facility] History I have reviewed the patient's past medical history: Yes Medical History: Denies:: Asthma, Cancer, Coronary Artery Disease, Diabetes Mellitus Type 1, Diabetes Mellitus Type 2, Hepatitis, Internal Pacemaker, Lung Disease, MRSA, Seizures *Have you ever received a pneumonia vaccine?: No *Have you received a flu vaccine this season?: No Other Medical History: Reports: Arthritis. Denies: Blood Transfusion Reaction Anesthesia experience/problems:: None Laterality Cases: Bilateral: Arthroscopy Knee Other Surgeries: Yes: Colonoscopy, Hernia Repair, Other. No: Pacemaker Amputation: No Fractures: No - *Social History Last grade of school completed: Advanced degree Smoking Status: Former smoker Tobacco Type: cigarettes #Yrs smoked (if former smoker): 32 Alcohol Intake: current Alcohol Intake Frequency:: holidays/special occasions only Substance Use Type: denies use *Occupational Status:: employed Housing: house Household Members: spouse *Travel in the last 8 weeks: Inside the [facility] Family Hx:: Cancer, Diabetes
--- NOTE | 2022-05-13 08:48 | HMH.OPNOTE ---
Date of procedure: 05/13/22 Pre-op Diagnosis:: Nontraumatic tear of left tibialis posterior tendon Acquired equinus deformity Chronic left ankle pain Closed nondisplaced fracture of medial malleolus of left tibia Posterior tibial tendinitis of left lower extremity Peroneal tenosynovitis, Synovitis of left ankle Partial tear of ligament of lateral aspect of ankle Left ankle instability Primary osteoarthritis of left ankle Obesity, Class II, BMI 35-39.9 Post-op Diagnosis:: Same Procedure performed:: 1. Left posterior tibial tendon repair (52439) 2. Left peroneal tendon synovectomy (97062) 3. Left modified Brostrum, ankle ligament stabilization (13783) 4. Left medial malleolus tibia ankle fracture/bone spur excision (36132) 5. Left ankle arthroscopy with debridement (62415) 6. Left deltoid ligament repair 7. Application of graft (04592) 8. Stress imaging (90348) Surgeon:: Mary Alice eRece DPM BLEACH CHLORINATOR:: Other (Miguelito Doherty) Anesthesia: GETA, local (30cc 0.5% marcaine plain) Estimated blood loss (mL): 20 Clinical Note:: Patient is a 51-year-old male with left ankle pain over 1.5 years progressively worsening, med malleolus ankle fracture, talus OCD, PT partial tear, bone marrow edema, post traumatic arthritis. Patient has failed conservative care with no improvement to left ankle symptoms. The patient has tried immobilization, modification of shoe gear, strapping, inserts, ice, elevation, NSAIDs, immobilization and fracture boot, ankle bracing and home stretching/physical therapy. The patient understands if he decides to not proceed with surgery there is a chance the pain and tear could worsen. Given the instability he could have the ankle give out which could lead to fracture or fall. He understands that if the partial tear worsens to a rupture surgery becomes more urgent. He also understands that if he does not want to proceed with surgery, he can continue the fracture boot or brace. My professional recommendation would be surgery since there has been no improvement with conservative care for over a year. After a long discussion with the patient in regards to the conservative versus surgical treatment for the tendon tear/deformity, the patient has elected to proceed with surgery because they have failed conservative treatment and continue to have pain and worsening symptoms affecting daily activities. The patient has been instructed on the planned procedure, all risk versus benefits of the procedure discussed. These include but are not limited to: bleeding, infection, nerve and blood vessel damage, need for further surgery, delay in healing of soft tissue or bone, tendon re-rupture, failure of bones to heal, non-union, mal-union, failure of the implant, prolonged pain and recovery, CRPS/RSD, DVT and anesthetic complications. No guarantees were given. All questions fully answered. The patient verbalized understanding. Medical clearance granted per PCP. Operative findings:: Significant synovitis noted to the ankle joint. Arthroscopic debridement. Left ankle instability. Left medial malleolus fracture fragment noted, excised without complication. A piece was sent to pathology. No evidence of osteomyelitis or deep infection noted. There was partial tear noted to the deltoid ligament. ATFL was attenuated. Peroneal tendons had no obvious tear but tenosynovitis noted. The posterior tibial tendon had about 4 cm tear inferior to the medial malleolus. There were some thickening noted to the tendon just proximal to the tear. This case took 1 hour longer than normal due to previous fracture and trauma history, extensive synovitis, large body habitus requiring extensive dissection and debridement. Operative note:: On this date and time patient was deemed an appropriate surgical candidate. Pre-op regional popliteal and saphenous nerve block performed by anesthesia. With informed consent signed, the patient was taken to the operating theater. Patient positioned supine. General
--- NOTE | 2022-05-13 10:14 | P.PN_ITS ---
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 Denies: Blood Transfusion Reaction Anesthesia experience/problems:: None Laterality Cases: Bilateral: Arthroscopy Knee Other Surgeries: Yes: Colonoscopy, Hernia Repair, Other. No: Pacemaker Amputation: No Fractures: No - *Social History Last grade of school completed: Advanced degree Smoking Status: Former smoker Tobacco Type: cigarettes #Yrs smoked (if former smoker): 32 Alcohol Intake: current Alcohol Intake Frequency:: holidays/special occasions only Substance Use Type: denies use *Occupational Status:: employed Housing: house Household Members: spouse *Travel in the last 8 weeks: Inside the [place] Family Hx:: Cancer, Diabetes
--- NOTE | 2022-05-13 10:16 | HMH.ANESCL ---
[facility] Anesthesia Checklist - Structural Data Planned Operative Procedure/s: left posterior tibial repair - Additional verifications Anesthesia Reactions: No Hx Blood Transfusions: No Blood Transfusion Reaction: No - Anesthesia Plan Anesthesia Type: General w/block [facility] History Medical History: Reports:: Hypertension Denies:: Asthma, Cancer, Coronary Artery Disease, Diabetes Mellitus Type 1, Diabetes Mellitus Type 2, Hepatitis, Internal Pacemaker, Lung Disease, MRSA, Seizures *Have you ever received a pneumonia vaccine?: No *Have you received a flu vaccine this season?: No Other Medical History: Reports: Arthritis. Denies: Blood Transfusion Reaction Anesthesia experience/problems:: None Laterality Cases: Bilateral: Arthroscopy Knee Other Surgeries: Yes: Colonoscopy, Hernia Repair, Other. No: Pacemaker Amputation: No Fractures: No - *Social History Last grade of school completed: Advanced degree Smoking Status: Former smoker Tobacco Type: cigarettes #Yrs smoked (if former smoker): 32 Alcohol Intake: current Alcohol Intake Frequency:: holidays/special occasions only Substance Use Type: denies use *Occupational Status:: employed Housing: house Household Members: spouse *Travel in the last 8 weeks: Inside the [facility] Family Hx:: Cancer, Diabetes
--- NOTE | 2022-05-13 11:30 | XR_ITS ---
FINAL REPORT CLINICAL HISTORY: s/p ankle stab/tendon repair, fx fragement excisio COMPARISON: MRI dated March 09, 2022 FINDINGS: LEFT ANKLE Three views of the left ankle were obtained. There are postoperative changes of the medial and lateral malleoli. There is no acute fracture or dislocation. The joint spaces and mortise are intact. There is a plantar calcaneal spur. There is soft tissue swelling and a small amount of soft tissue air. IMPRESSION: Postoperative change with soft tissue swelling and a small amount of soft tissue air. Reviewed, Interpreted and Dictated by Jaylen Schuster III, MD Transcribed by Regina Blue Authenticated and . [facility]
--- NOTE | 2022-05-13 11:31 | XR_ITS ---
FINAL REPORT CLINICAL HISTORY: TIBIAL TENDON REPAIR TIME-0.12 FINDINGS: FLUORO TIME PROCEDURE: Fluoroscopy in the operating room. FINDINGS: Fluoroscopy time was provided by the radiology department for the clinical service. One spot film was obtained. Fluoroscopy exposure time: 0:12 minute IMPRESSION: See above Reviewed, Interpreted and Dictated by Jaylen Schuster III, MD Transcribed by Regina Blue Authenticated and [facility]
--- NOTE | 2022-05-13 11:51 | SUR.OPER ---
1029-family updated at this time 1153-updated family surgeon closing.
--- NOTE | 2022-05-13 13:02 | HMH.ANESI ---
[facility] Anesthesia Record Part I Intake, IV Amount: 900 Estimated blood loss (mL): 5 Urine output (mL): 0 Blood Products used (#): none Blood Pressure: 134/91 SaO2: 94 Pulse Rate: 87 Respiratory Rate: 12 Temperature: 97.4 F Patient is:: Drowsy, Nasal O2
--- NOTE | 2022-05-13 13:50 | SUR.PHASEI ---
1348 transported pt back to post op via stretcher. gave detailed bedside report to Asha Van RN. pt left in stable condtion with Asha Van RN at bedside.
--- NOTE | 2022-05-13 14:38 | PC.NURSE ---
gave patient incentive spirometer and instructed use. Patient used properly
--- NOTE | 2022-05-14 07:23 | P.PN_ITS ---
[facility] Anesthesia Record Part II Discharge Time: 13:47 Destination: Surgical Day Care (OP Surgery) PACU nurse assessment reviewed?: Yes Patient Condition:: Good Anesthesia Complications:: None Swallowing reflex intact?: Yes Cyanosis?: No Blood Pressure: 144/84 Pulse Rate: 88 Temperature: 98.4 F Mental Status: Alert & Oriented Pain level:: 0 Nausea and/or vomitting:: None Intake, IV Amount: 0
[2022-05-14 07:24] VITALS: BP 144/84; PULSE 88; TEMP 36.9
== END 2022-05-13 14:30 | disposition home or self-care (01) ==
PROVIDERS: PCP Family Medicine; Visit Provider Podiatrist
PROC: (CPT 27696; principal; 2022-05-13 09:00)
DX: S93.422A Sprain of deltoid ligament of left ankle, initial encounter (principal); S82.55XK Nondisplaced fracture of medial malleolus of left tibia, subsequent encounter for closed fracture with nonunion; M76.822 Posterior tibial tendinitis, left leg; M25.372 Other instability, left ankle; M19.072 Primary osteoarthritis, left ankle and foot; M66.872 Spontaneous rupture of other tendons, left ankle and foot; M25.572 Pain in left ankle and joints of left foot; G89.29 Other chronic pain; M65.872 Other synovitis and tenosynovitis, left ankle and foot; Z79.899 Other long term (current) drug therapy; M62.472 Contracture of muscle, left ankle and foot; I10 Essential (primary) hypertension; M77.52 Other enthesopathy of left foot and ankle
CPT/HCPCS: 27696; 27658; 28086; 28120; 73600; 73610; 76000; J2405; Q4211

== ENCOUNTER → 2022-07-15 16:07 | Outpatient (CLI) | payer BC, SELFPAY ==
--- NOTE | 2022-07-15 16:13 | XR_ITS ---
FINAL REPORT CLINICAL HISTORY: pain COMPARISON: 05/13/2022 FINDINGS: Left ankle Three views were obtained. There is no acute fracture or dislocation. There are postoperative changes in the medial and lateral malleoli. Chronic calcifications are seen inferior to the medial malleolus. There is soft tissue swelling. Small calcaneal spurs are identified. Findings are similar to previous. IMPRESSION: Postoperative and chronic appearing findings, similar to previous. Reviewed, Interpreted and Dictated by Jaylen Schuster III, MD Transcribed by Maria Alejandra Plummer Authenticated and [facility]
== END ==
PROVIDERS: PCP Family Medicine; Visit Provider Podiatrist
DX: M25.572 Pain in left ankle and joints of left foot (principal)
CPT/HCPCS: 73610

== ENCOUNTER → 2022-09-04 14:39 | Outpatient (CLI) | payer BC, SELFPAY | PROVIDERS: PCP Family Medicine; Visit Provider Physician Assistant | DX: R06.83 Snoring (principal); G47.33 Obstructive sleep apnea (adult) (pediatric) | CPT/HCPCS: G0399 ==

== ENCOUNTER 2022-09-16 14:00 | Outpatient (RCR) | payer BC, SELFPAY ==
--- NOTE | 2022-06-16 12:06 | HMH.PTOPEV ---
PT Outpatient Evaluation Rehab PT Outpatient Evaluation Start: 06/16/22 10:56 Freq: Status: Active Protocol: Document 06/16/22 10:56 POLO (Rec: 06/16/22 12:05 POLO [id number]) E-signed By Kourtney Griggs, PT Outpatient Therapy Subjective History Subjective History Pt is a 51 y/o male that presents to PT 5 weeks s/p L ankle repair. Pt reports years ago he fractured a bone in his ankle that was cutting into his tendon that eventually led to his surgery. Pt had L ankle surgery performed at [facility] on 05/13/22 involving left posterior tibial tendon repair, peroneal tendon synovectomy, modified Brostrum, medial malleolus tibia ankle fracture/bone spur excision, ankle arthroscopy with debridement, deltoid ligament repair, application of graft, stress imaging per MD note. Pt reports he fell Wednesday going up his front step while using the knee scooter and caught himself with the left foot causing increased pain. Pt reports it was swollen more until yesterday afternoon as well. Pt reports 1-2/10 pain on average and numbness/tingling of the medial side of the foot. Pt reports he is taking 800mg Ibuprofen 2x/day and Oxycodone /acetaminophen mixture he takes for back/foot pain. Pt reports he has a ramp to get into his house without steps. Pt reports he has a foolow-up appointment with Dr. Reece July 21. Pt denies having imaging since the surgery. Pt reports he has high blood pressure recently due to sedentary activity since the surgery. 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
--- NOTE | 2022-07-15 15:51 | HMH.RHREAS ---
Rehab Reassessment Rehab OP Re-assessment Start: 07/15/22 15:20 Freq: Status: Active Protocol: Document 07/15/22 15:20 POLO (Rec: 07/15/22 15:51 POLO [id number]) E-signed By Kourtney Griggs PT Rehab Re-assessment Subjective Subjective Pt reports he twisted his ankle yesterday morning while turning to his left getting out of bed. Pt reports he felt a pop and noticed immediate swelling and pain. Pt reports pain was about a 6/10 with ambulation after that has since improved to 2/10. Overall, pt reports he feels 70% improved since starting PT and reports pain generally stays around a 2-3/10. Pt reports he is now independent with dressing and showering/ bathing and has been walking well with use of a SC and ankle brace. Pt reports he returns to his MD on Wednesday07/21/22. Objective Objective Notes Observation: noted new onset of swelling of the medial left ankle surrounding incision Palpation: severe tenderness with guarding distal to medial malleoli and 1st MTP Edema: Figure 8- 61 cm, malleoli circumference- 32.5 cm L ankle AROM: 35 PF, 8 DF, 20 eversion, 15 inversion Gait: mildly antalgic with ankle brace donned and use of SC Strength and balance/ proprioception not tested this date due to circumstances of acute injury yesterday Assessment Progress Assessment Progressing as Expected Assessment Notes Pt has attended 9 PT visits consisting of ankle range of motion, strengthening, stretching, hip strengthening, balance/proprioception, gait training, manual therapy and modalities with good tolerance
--- NOTE | 2022-08-12 14:03 | HMH.RHREAS ---
Rehab Reassessment Rehab OP Re-assessment Start: 07/15/22 15:20 Freq: Status: Active Protocol: Document 08/12/22 13:41 POLO (Rec: 08/12/22 14:03 POLO [id number]) E-signed By Kourtney Griggs PT Rehab Re-assessment Subjective Subjective Pt reports he is continuing to improve overall. Pt reports he has been walking some without his ankle brace and it actually feels better than when walking with it on; however, is wearing it on uneven surfaces. Pt reports continued swelling noted with prolonged activity. Pt reports pain at worse as 1/10 within the past week of the lateral ankle and denies paresthesia. Pt reports he is still on light-duty at work but does return to Dr. Reece on Wednesday of next week. Objective Objective Notes Palpation: moderate tenderness to peroneal tt Edema: Figure 8- 61 cm, malleoli circumference- 31 cm L ankle AROM: 35 PF, 12 DF, 25 eversion, 20 inversion L ankle strength: 5/5 open chain Gait: mildly antalgic with ankle brace, no AD Assessment Progress Assessment Progressing as Expected Assessment Notes Pt has attended 17 PT visits consisting of ankle range of motion, strengthening, stretching, hip strengthening, balance/proprioception, gait training, manual therapy and modalities with good tolerance . Pt demonstrated improved ankle strength, ankle DF/inv/ ev AROM, swelling around malleoli, and gait since previous reassessment. Pt continues to have mildly antaglic gait, edema, and deficits with AROM and balance . Pt would continue to benefit from skilled PT to further improve gait, balance/
--- NOTE | 2022-09-16 15:59 | HMH.RHREAS ---
Rehab Reassessment Rehab OP Re-assessment Start: 07/15/22 15:20 Freq: Status: Active Protocol: Document 09/16/22 13:54 PATRICIAJOSELYN (Rec: 09/16/22 15:59 SRAVANKEIRA [id number]) E-signed By Kourtney Griggs PT Rehab Re-assessment Subjective Subjective Pt reports he feels 80-85% improved since starting PT. Pt states he feels that he will not get back to 100% since he wasn't 100% before the surgery . Pt reports most of the time he doesn't have pain which was his personal goal for the surgery. Pt reports at worst pain gets to a 3-4/10 on the lateral aspect of the foot. Pt reports he returns to Dr. Reece on Wednesday and will discuss work duties. Objective Objective Notes Palpation: mild tenderness along medial malleoli Edema: Figure 8- 59 cm, malleoli circumference- 31 cm L ankle AROM: 45 PF, 15 DF, 25 eversion, 20 inversion L ankle strength: 5/5 open chain, able to perform L SLS calf raise with UE support, unable without UE support Balance: tandem stance on firm surface EC x15 Gait: non-antalgic gait without brace donned Assessment Progress Assessment Progressing as Expected Assessment Notes Pt has attended 27 PT visits consisting of ankle range of motion, strengthening, stretching, hip strengthening, balance/proprioception, gait training, manual therapy and modalities with good tolerance . Pt demonstrated improved ankle AROM, strength, balance/ proprioception and gait pattern since initial evaluation. Pt has met most PT goals and is appropriate to discharge to [facility] at this time. Patient goals met LT/13 Goals Not Met edema, inversion AROM, tandem
== END 2022-09-16 14:05 | disposition home or self-care (01) ==
LOC: PT 14:00
PROVIDERS: PCP Family Medicine; Visit Provider Podiatrist
DX: M25.372 Other instability, left ankle (principal); Z98.890 Other specified postprocedural states
CPT/HCPCS: 97010; 97014; 97016; 97110; 97112; 97116; 97140; 97163; 97164; 97530; G0283

== ENCOUNTER 2022-10-03 11:43 | Emergency (ER) | payer BC, SELFPAY ==
--- NOTE | 2022-10-03 11:43 | ECG_ITS ---
APPROVED REPORT Exam: Resting ECG HR:102 bpm ECG Measurements Heart Rate 102 AXES NJ 151 P 47 QRSd 93 QRS -2 QT 329 T 5 QTc 388 Conclusion SINUS TACHYCARDIA VOLTAGE CRITERIA FOR LVH [MEETS CRITERIA IN ONE OF: R(aVL), S(V1), R(V5), R(V5/V6)+S(V1)] ABNORMAL ECG UNCONFIRMED REPORT Electronically signed by : Juliano Sprague MD 10/05/2022 20:04:32
[2022-10-03 11:47] VITALS: BP 143/95; PULSE 100; RESP 18; TEMP 36.6; O2SAT 95; BMI 38.7
--- NOTE | 2022-10-03 11:50 | XR_ITS ---
PROCEDURE INFORMATION: Exam: XR Chest Exam date and time: 10/03/2022 12:06 PM Age: 52 years old Clinical indication: Shortness of breath; Additional info: Sob/cp TECHNIQUE: Imaging protocol: Radiologic exam of the chest. Views: 1 view. COMPARISON: CR XR CHEST 2V 05/07/2022 8:56 AM FINDINGS: Lungs: Unremarkable. No consolidation. Pleural spaces: Unremarkable. No pleural effusion. No pneumothorax. Heart/Mediastinum: Unremarkable. No cardiomegaly. Bones/joints: Unremarkable. IMPRESSION: No acute findings.
--- NOTE | 2022-10-03 12:03 | HMH.EDGENADL ---
Discharge Plan Disposition Patient Disposition: Home, Self-Care Condition: Good Chief Complaint: PAIN Prescriptions Prescriptions: No Action lisinopril 5 mg tablet 5 mg PO DAILY Label Comments: TAKE 1 TABLET BY MOUTH EVERY DAY ibuprofen 800 mg tablet 800 mg PO BID Qty: 60 3RF Referrals Follow up/Referrals: Provider,Cedric, [Primary Care Provider] - See instructions Clinical Impressions Clinical Impression: Chest pain Instructions Patient Instructions: DI for Chest Pain Discharge ED Provider: Andres Wen General Adult HPI General Chief complaint: PAIN Stated complaint: chest pain Time Seen by Provider: 10/03/22 11:50 Mode of Arrival: Ambulatory Source of Information: Patient Limitations: No Limitations Description of Symptoms (Recalled from ER Triage Doc. by RN): pt R sided chest pain in R and breast area, reports pain began yesterday morning. Pt reports pain worsening with movement and breathing. History of Present Illness HPI narrative: 52-year-old male, denies any prior cardiac history, does report risk factor of high blood pressure this weight related, presents with right-sided chest pain its been ongoing for few days. It is worse with movement, and seems to be worse with palpation of the right lateral chest wall. He denies any known strain or injury to the area. He had recently had increased dose of lisinopril, and he attributes discomfort to that although he is reporting no other symptoms related to this. He denies shortness of breath, nausea, vomiting, diaphoresis. He states he has not ever previously had a stress test or heart catheterization. Pain is nonexertional, nonradiating. Related Data Home Medications Medication Instructions Recorded Confirmed lisinopril 5 mg tablet 5 mg PO DAILY 08/18/22 09/22/22 Previous Rx's Medication Instructions Recorded ibuprofen 800 mg tablet 800 mg PO BID pain, mild #60 tabs 08/18/22 Allergies Allergy/AdvReac Type Severity Reaction Status Date / Time hydrocodone [HYDROCODONE] Allergy Unknown SEVERE Verified 09/22/22 11:09 [facility] Disclaimer: The information contained in this section may have been updated after the patient was seen, as this information can be updated by other users. Medical History HTN (hypertension), benign Surgical History History of arthroscopy of both knees Family History Other Cancer Diabetes Social History Smoking Status: Never smoker second hand exposure: No alcohol intake: current counseling provided: none substance use type: denies use current occupational status: employed Travel in the last 8 weeks: None household members: spouse housing: house caffeine: Yes ROS Obtained: Yes Systems reviewed as appropriate & no additional complaints except as documented Constitutional Constitutional: Reports system reviewed and no additional complaints, except as documented Eyes Eyes: Reports system reviewed and no additional complaints, except as documented ENT Ears, Nose, Mouth, and Throat: Reports system reviewed and no additional complaints, except as documented Cardiovascular Cardiovascular: Reports system reviewed and no additional complaints, except as documented Respiratory Respiratory: Reports system reviewed and no additional complaints, except as documented Gastrointestinal Gastrointestingal: Reports system reviewed and no additional complaints, except as documented Genitourinary Male Genitourinary: Reports system reviewed and no additional complaints, except as documented Musculoskeletal Musculoskeletal: Reports system reviewed and no additional complaints, except as documented Integumentary/Breasts Skin/Breast: Reports system reviewed an
[2022-10-03 12:16] LABS: Basophils # 0.1 K/mm3 (0-0.2); Eosinophils # 0.2 K/mm3 (0.0-0.4); Hematocrit 44.7 % (42.0-52.0); Hemoglobin 14.5 g/dL (14.1-18.0); Lymphocytes # 2.4 K/mm3 (0.7-4.5); Lymphocytes % 25.3 % (10-50); Mean Corpuscular HGB Conc 32.5 g/dL (31.8-35.4); Mean Corpuscular Hemoglobin 29.5 pg (27.0-31.2); Mean Corpuscular Volume 90.8 fl (80-94); Mean Platelet Volume 8.9 fl (7.4-10.4); Monocytes # 0.7 K/mm3 (0.1-1.0); Monocytes % 7.2 % (1.7-9.3); Neutrophils # 6.1 K/mm3 (1.8-7.8); Neutrophils % 64.5 % (37.0-80.0); Platelet Count 247 K/mm3 (142-424); Red Blood Count 4.92 M/mm3 (4.60-6.20); Red Cell Distribution Width 13.6 % (11.5-17.5); White Blood Count 9.5 K/mm3 (4.8-10.8)
[2022-10-03 12:19] LABS: Chloride 106 mmol/L (98-107)
[2022-10-03 12:20] LABS: Potassium 4.4 mmoL/L (3.5-5.1); Sodium 140 mmol/L (136-145)
[2022-10-03 12:22] LABS: Alanine Aminotransferase 55 U/L (12-78); Aspartate Amino Transferase 41 U/L (17-59); Blood Urea Nitrogen 23 mg/dl (9-20); Creatinine Clearance Estimated 184 mL/min (50-200); Estimated Glomerular Filt Rate 88 ml/min (>60); GFR (African American) 107 ML/MIN (>60)
[2022-10-03 12:23] LABS: Albumin Level 4.8 g/dl (3.5-5.0); Albumin/Globulin Ratio 1.5 (1.1-1.8); Alkaline Phosphatase 114 U/L (38-126); Anion Gap 16.4 mEq/L (5-15); Bilirubin,Total 0.4 mg/dl (0.2-1.3); Calcium 9.2 mg/dl (8.4-10.2); Carbon Dioxide 22 mmol/L (22.0-30.0); Globulin 3.2 g/dL (1.3-3.2); Glucose 108 mg/dl (74-100)
[2022-10-03 12:30] VITALS: BP 130/93; PULSE 92; RESP 19; O2SAT 95
[2022-10-03 12:34] LABS: NT Pro Brain Natriuretic Pep. < 11.1 pg/mL (0-125)
[2022-10-03 12:37] LABS: Troponin I < 0.01 ng/ml (0.00-0.034)
[2022-10-03 13:00] VITALS: BP 130/96; PULSE 92; RESP 18; O2SAT 95
[2022-10-03 13:46] VITALS: BP 131/90; PULSE 93; RESP 20; TEMP 36.6; O2SAT 95
== END 2022-10-03 13:08 | disposition home or self-care (01) ==
PROVIDERS: Emergency Provider Emergency Medicine
DX: N64.4 Mastodynia (principal); R00.0 Tachycardia, unspecified; I10 Essential (primary) hypertension; Z79.1 Long term (current) use of non-steroidal anti-inflammatories (NSAID); Z79.899 Other long term (current) drug therapy; Z88.5 Allergy status to narcotic agent; Z88.6 Allergy status to analgesic agent; Z88.3 Allergy status to other anti-infective agents; Z87.891 Personal history of nicotine dependence; Z80.9 Family history of malignant neoplasm, unspecified
CPT/HCPCS: 71045; 80053; 83880; 84484; 85025; 93005; 99284

== ENCOUNTER → 2023-04-07 08:00 | Outpatient (CLI) | payer BC, SELFPAY ==
--- NOTE | 2023-04-07 08:04 | XR_ITS ---
FINAL REPORT CLINICAL HISTORY: Rt hip pain COMPARISON: 06/18/2021 FINDINGS: RIGHT HIP SERIES Two views of the right hip and an AP view of the pelvis were obtained. There is no acute fracture or dislocation. There is moderate degenerative change that is stable. There are soft tissue calcifications of the proximal thigh that are stable. IMPRESSION: Stay moderate degenerative change. Stable soft tissue calcifications of the proximal thigh Reviewed, Interpreted and Dictated by Jaylen Schuster III, MD Transcribed by Jr Olivier Authenticated and [facility]
== END ==
PROVIDERS: PCP Family Medicine; Visit Provider Orthopaedic Surgery
DX: M25.551 Pain in right hip (principal)
CPT/HCPCS: 73502

== ENCOUNTER 2023-04-09 13:41 | Emergency (ER) | payer BC, SELFPAY ==
[2023-04-09 13:51] VITALS: BP 168/108; PULSE 91; RESP 20; TEMP 36.6; O2SAT 94; BMI 39.2
[2023-04-09 14:01] VITALS: BP 162/99; PULSE 79; RESP 20; O2SAT 96
--- NOTE | 2023-04-09 14:05 | CT_ITS ---
FINAL REPORT TECHNIQUE: Axial images through the abdomen and pelvis were performed without contrast. This study was performed with techniques to keep radiation doses as low as reasonably achievable, (ALARA). Individualized dose reduction techniques using automated exposure control or adjustment of mA and/or kV according to the patient's size were employed. CLINICAL HISTORY: Abdominal pain COMPARISON: 03/06/2018 FINDINGS: ABDOMEN: There is mild bibasilar atelectasis. The heart size is normal. There is fatty infiltration of the liver. The spleen is normal. No adrenal mass is identified. The aorta is normal in caliber. There is no significant free fluid or adenopathy. There is a 4 mm stone in the upper pole of the right kidney. There is mild left hydronephrosis secondary to a 3 mm left UPJ stone. PELVIS: The appendix is not identified. The urinary bladder is unremarkable. There is no significant free fluid or adenopathy. IMPRESSION: Mild left hydronephrosis secondary to an obstructing UPJ stone. Right renal stone. Reviewed, Interpreted and Dictated by Jaylen Schuster III, MD Transcribed by Maria Alejandra Plummer Authenticated and [facility]
--- NOTE | 2023-04-09 14:13 | HMH.EDABDPAI ---
Discharge Plan Disposition Patient Disposition: Home, Self-Care Prescriptions Prescriptions: New tamsulosin [Flomax] 0.4 mg capsule 0.4 mg PO DAILY Qty: 14 0RF No Action ibuprofen 800 mg tablet 800 mg PO BID Qty: 60 3RF lisinopril 10 mg tablet 10 mg PO DAILY Patient Comments: TAKE 1 TABLET BY MOUTH EVERY DAY meloxicam 15 mg tablet 15 mg PO DAILY Qty: 30 2RF Referrals Follow up/Referrals: Kylie Gan MD [Primary Care Provider] - See instructions Clinical Impressions Clinical Impression: Kidney stones Instructions Patient Instructions: DI for Acute Abdominal Pain Discharge ED Provider: Ehsan Cota Abdominal Pain HPI General Chief Complaint: Abdominal Pain Stated Complaint: abd pain Time Seen by Provider: 04/09/23 14:01 Mode of Arrival: Ambulatory Source of Information: Patient Limitations: No Limitations Description of Symptoms (Recalled from ER Triage Doc. by RN): pt to ed c/o LLQ pain that started approx 10am associated with nausea. pt states he has a hx of diverticulitis. pt denies urinary symptoms. History of Present Illness HPI narrative: He 2-year-old white male presents with 4-hour history of left lower quadrant abdominal pain. He has a history of diverticulosis and has had similar pain in the past. He has waves of nausea that comes and goes. Patient lists allergies to hydrocodone he has history of trochanteric bursitis hypertension chest pain diverticulitis Related Data Home Medications Medication Instructions Recorded Confirmed lisinopril 10 mg tablet 10 mg PO DAILY 04/07/23 04/07/23 Previous Rx's Medication Instructions Recorded ibuprofen 800 mg tablet 800 mg PO BID pain, mild #60 tabs 08/18/22 meloxicam 15 mg tablet 15 mg PO DAILY #30 tabs 04/07/23 tamsulosin 0.4 mg capsule (Flomax) 0.4 mg PO DAILY #14 caps 04/09/23 Allergies Allergy/AdvReac Type Severity Reaction Status Date / Time hydrocodone [HYDROCODONE] Allergy Unknown SEVERE Verified 04/07/23 08:54 [facility] Disclaimer: The information contained in this section may have been updated after the patient was seen, as this information can be updated by other users. Medical History HTN (hypertension), benign Surgical History History of arthroscopy of both knees Family History Other Cancer Diabetes Social History Smoking Status: Former smoker pack-years: 32 second hand exposure: No alcohol intake: current counseling provided: none substance use type: denies use current occupational status: employed Travel in the last 8 weeks: None household members: spouse housing: house marital status: caffeine: Yes ROS Obtained: Yes Systems reviewed as appropriate & no additional complaints except as documented Physical Exam General General appearance: alert and in distress Head Head exam: atraumatic and normocephalic Eye Eye exam: Present normal appearance Neck Neck exam: Present normal inspection Respiratory Respiratory exam: Present normal lung sounds bilaterally Cardiovascular Cardiovascular exam: Present regular rate and normal rhythm Abdominal Exam Abdominal exam: Present soft and tenderness (Left lower quadrant) Extremities Exam Extremities exam: Present normal inspection Neurological Exam Neurological exam: Present alert and oriented X3 Medical Decision Making Medical Records MR Comment: 52-year-old white male presented with 4-hour history of left abdominal pain. He has a history of diverticulosis and diverticulitis. He is evaluation included a CBC CMP and urinalysis significant for 3+ blood. CT abdomen and pelvis was significant for a left UVJ stone. He was subsequently given Toradol 30 mg and
--- NOTE | 2023-04-09 14:18 | PC.NURSE ---
pt return from radiology
[2023-04-09 14:20] VITALS: PULSE 84; O2SAT 98
--- NOTE | 2023-04-09 14:20 | PC.NURSE ---
pt unable to give UA at this time. Family at BS. Call light within reach
[2023-04-09 14:27] LABS: Basophils % 0.3 % (0.1-2.0); Eosinophils # 0.1 K/mm3 (0.0-0.4); Eosinophils % 0.5 % (0.1-12.0); Hematocrit 45.5 % (42.0-52.0); Hemoglobin 14.2 g/dL (14.1-18.0); Lymphocytes # 2.5 K/mm3 (0.7-4.5); Lymphocytes % 21.1 % (10-50); Mean Corpuscular HGB Conc 31.1 g/dL (31.8-35.4); Mean Corpuscular Hemoglobin 28.8 pg (27.0-31.2); Mean Corpuscular Volume 92.5 fl (80-94); Monocytes # 0.8 K/mm3 (0.1-1.0); Monocytes % 6.9 % (1.7-9.3); Neutrophils # 8.4 K/mm3 (1.8-7.8); Neutrophils % 71.1 % (37.0-80.0); Platelet Count 227 K/mm3 (142-424); Red Blood Count 4.92 M/mm3 (4.60-6.20); Red Cell Distribution Width 13.9 % (11.5-17.5); White Blood Count 11.9 K/mm3 (4.8-10.8)
--- NOTE | 2023-04-09 14:28 | PC.NURSE ---
pt ambulatory to restroom without complications
[2023-04-09 14:31] LABS: Alanine Aminotransferase 50 U/L (12-78); Albumin Level 4.9 g/dl (3.5-5.0); Albumin/Globulin Ratio 1.3 (1.1-1.8); Alkaline Phosphatase 113 U/L (38-126); Anion Gap 15.6 mEq/L (5-15); Aspartate Amino Transferase 40 U/L (17-59); Bilirubin,Total 0.4 mg/dl (0.2-1.3); Blood Urea Nitrogen 25 mg/dl (9-20); Calcium 8.8 mg/dl (8.4-10.2); Carbon Dioxide 24 mmol/L (22.0-30.0); Chloride 110 mmol/L (98-107); Creatinine Clearance Estimated 152 mL/min (50-200); Estimated Glomerular Filt Rate 70 ml/min (>60); GFR (African American) 85 ML/MIN (>60); Globulin 3.7 g/dL (1.3-3.2); Glucose 102 mg/dl (74-100); Lactic Acid 1.2 mmol/L (0.7-2.1); Potassium 4.6 mmoL/L (3.5-5.1); Sodium 145 mmol/L (136-145); Total Protein,Serum 8.6 g/dl (6.3-8.2)
[2023-04-09 14:40] LABS: Microscopic, Urine URINE MICROSCOPIC (MICROSCOPIC)
[2023-04-09 14:45] LABS: Appearance,Urine CLEAR (Clear); Bilirubin,Urine Negative (Negative); Blood, Urine 3+ (Negative); Color,Urine YELLOW (Yellow); Glucose,Urine (UA) Negative (Negative); Ketones,Urine Negative (Negative); Leukocyte Esterase,Urine Negative (Negative); Nitrate,Urine Negative (Negative); PH,Urine 5.5 (5.0-8.5); Protein,Urine TRACE (Negative); Specific Gravity, Urine 1.025 (1.005-1.030); Urobilinogen,Urine 0.2 EU/dl (0.2)
[2023-04-09 15:02] LABS: Bacteria,Urine Trace /lpf; Squamous Epithelial Cell,Urine Occasional #/hpf (0-5)
[2023-04-09 16:55] VITALS: BP 135/83; PULSE 75; RESP 20; TEMP 36.8; O2SAT 95
== END 2023-04-09 16:57 | disposition home or self-care (01) ==
PROVIDERS: Emergency Provider Emergency Medicine; PCP Family Medicine
DX: N20.1 Calculus of ureter (principal); I10 Essential (primary) hypertension; Z87.891 Personal history of nicotine dependence
CPT/HCPCS: 74176; 80053; 81001; 83605; 85025; 96374; 96375; 99284; 99285

== ENCOUNTER 2023-04-20 08:18 | Day surgery (SDC) | payer BC, SELFPAY ==
[2023-04-19 15:11] VITALS: BMI 39.4
[2023-04-20 08:58] VITALS: BP 145/90; PULSE 73; RESP 17; TEMP 36.5; O2SAT 96
--- NOTE | 2023-04-20 09:02 | P.PCN_ITS ---
Procedure: Date: 04/20/23 Patient Date of :: 1970 Procedure Performed:: Colonoscopy Indications:: History of colon polyps Note most recent colonoscopy in June 2019 revealed an adenoma at 12 cm. Ad enomas at 30 and at 40 cm noted on prior colonoscopy. Sigmoid diverticulosis and a somewhat enlarged prostate noted on prior colonoscopy. Both of the above- stated colonoscopies were somewhat complicated by tortuosity and spasticity/lack of relaxation. Performing Provider:: Fabian Hensley MD Referring Provider:: . Sedation:: Monitored anesthesia care Procedure:: After informed consent was obtained the patient was taken to the endoscopy suite. Sedation ensued after the patient was transferred to the left lateral decubitus position. Pulse, blood pressure, and oxygen saturation were monitored throughout the procedure. Digital rectal exam revealed no significant abnormality. The colonoscope was placed in position. The entire colon was evaluated. The colonoscope was carefully removed and the patient was transferred to recovery in stable condition. Please see findings and specimens below for detail. Findings:: Bowel preparation moderate to poor Hemorrhoidal cushions Sigmoid diverticulosis (unchanged) Enlarged prostate (unchanged) with no definitive mass lesion Spasticity/lack of relaxation Polyp at 60 cm Specimens:: Polyp at 60 cm (cold biopsy forceps) Recommendations:: Timing of repeat colonoscopy is pending pathology but will likely be around 3 years with extended/alternate bowel preparation. Complications:: No immediate Estimated blood obtained (mL): 1 Colonoscopy Component Colonoscopy Component Was a colonoscopy performed during today's procedure?: Yes Recommended follow up colonoscopy of at least 10 years?: No If no, follow up colonoscopy recommended in ___ years?: 3-5 years Reason for not recommending >/= 10 yr follow-up interval?: History of colon polyps; moderate bowel prep
--- NOTE | 2023-04-20 09:04 | EXP.ANES.CKL ---
[facility] Disclaimer: The information contained in this section may have been updated after the patient was seen, as this information can be updated by other users. Medical History Diverticulosis Edema Enlarged prostate History of COVID-19 HTN (hypertension), benign Kidney stone Sinus headache Sleep apnea Surgical History History of ankle surgery History of arthroscopy of both knees Family History Other Cancer Diabetes Social History Smoking Status: Former smoker pack-years: 32 second hand exposure: No alcohol intake: former counseling provided: none substance use type: denies use current occupational status: employed Travel in the last 8 weeks: None household members: spouse housing: house marital status: caffeine: Yes [facility] Anesthesia Checklist Patient Identification Patient Identification: Arm Band and Verbal (Name & ) Structural Data Admitted From: Home Planned Operative Procedure/s: Colonoscopy Consent for Planned Operative Procedure(s) Verified: Yes NPO Status Verified Time NPO: 00:00 Additional verifications Anesthesia Reactions: No Hx Blood Transfusions: No Blood Transfusion Reaction: No Airway Assessment C-Spine Mobility Assessed: Yes TMJ Mobility Assessed: Yes Dentition: Good Dentition Neurological Assessment Level of Consciousness: Awake Hx Seizures: No Numbness or tingling in extremities: No Anesthesia Plan Anesthesia Risk discussed: Yes Anesthesia Plan: Verified ASA Class: II Anesthesia Type: MAC
[2023-04-20 09:16] VITALS: O2SAT 97
[2023-04-20 10:02] VITALS: BP 112/62; PULSE 72; RESP 15; TEMP 36.2; O2SAT 92
[2023-04-20 10:12] VITALS: BP 121/70; PULSE 69; RESP 16; O2SAT 96
[2023-04-20 10:22] VITALS: BP 119/62; PULSE 67; RESP 17; O2SAT 93
[2023-04-20 10:32] VITALS: BP 109/61; PULSE 71; RESP 18; O2SAT 94
== END 2023-04-20 10:30 | disposition home or self-care (01) ==
PROVIDERS: PCP Family Medicine; Visit Provider Surgery
PROC: 0DJD8ZZ Inspection of Lower Intestinal Tract, Via Natural or Artificial Opening Endoscopic (ICD-10-PCS; CPT 45380; principal; 2023-04-20 09:30)
DX: Z12.11 Encounter for screening for malignant neoplasm of colon (principal); Z86.010 Personal history of colon polyps; D12.6 Benign neoplasm of colon, unspecified; K57.30 Diverticulosis of large intestine without perforation or abscess without bleeding; N40.0 Benign prostatic hyperplasia without lower urinary tract symptoms
CPT/HCPCS: 45380; J2704

== ENCOUNTER → 2023-04-29 10:29 | Outpatient (CLI) | payer BC, SELFPAY ==
--- NOTE | 2023-04-29 | CA_ITS ---
APPROVED REPORT Exam: Exercise Treadmill Technologist: Quynh Nova, Ht: 6 ft 2 in Wt: 303 lbs BSA: 2.59 m2 HR: 74 bpm BP: 158/95 mmHg Rhythm: NSR Medical History Medical History: HTN, Smoking Medications: Lisinopril,,,,, MeLOXICAM,,,,, Allergies: HYDROCODONE Cardiac Risk Factors: HTN, Smoking Stress Test Details Test: Rupali HR Resting HR: 85 bpm Max Heart Rate (APMHR): 167 bpm Max HR Achieved: 142 bpm Target HR (85% APMHR): 142 bpm % of APMHR: 85 Recovery HR: 87 bpm HR response to stress: Normal HR response to stress BP Resting BP: 158.0/95.0 mmHg Max BP: 242.0/80.0 mmHg Recovery BP: 138.0/72.0 mmHg BP response to stress: Abnormal hypertensive response to stress. ECG Resting ECG: NSR, T WAVE INVERSION IN INFERIOR LEADS, < 1MM ST DEPRESSION IN LATERAL LEADS, CANNOT R/O OLD INF WA Stress ECG: MORE EXAGGERATION OF BASELINE ST DEPRESSION Arrhythmia: PACS, PVCS Recovery ECG: RETURN TO BASELINE WITHIN 3 MINUTES OF RECOVERY Recovery Arrhythmia: PVCS Clinical Exercise duration: 05:59 min Highest Stage Achieved: Stage 2: 2.5 mph at 12% grade. Exercise capacity: 7 METs METs Overall Exercise Capacity for Age: Poor Stress ECG Conclusion PT WALKED 6:00 ON RUPALI PROTOCOL. HE ACHIEVED A TOTAL OF 7 METS. HE HAS A POOR EXERCISE CAPACITY COMPARED TO AGE AND SEX MATCHED PEERS. HE HAS A NORMAL HR, BUT EXAGGERATED HYPERTENSIVE BP, RESPONSE TO EXERCISE. MAX HR: 142 % OF PM: 85% MAX BP: 242/80 METS: 7.0 TEST STOPPED DUE TO: SOA, FATIGUE AND BLOOD PRESSURE NO CP RARE PAC, PVC BASELINE ECG DEMONSTRATES NSR, T-WAVE CHANGES IN INFERIOR LEADS, AND < 0.[address] DEPRESSION IN LATERAL LEADS. AT PEAK STRESS, THERE WAS MINIMAL EXAGGERATION OF THE BASELINE ST ABNORMALITIES. CONCLUSION POOR EXERCISE CAPACITY. NORMAL HR, BUT EXAGGERATED BP, RESPONSE TO EXERCISE. NON-DIAGNOSTIC EXERCISE STRESS TEST DUE TO BASELINE ABNORMALITIES. NO EVIDENCE OF SIGNIFICANT ST CHANGES AT PEAK STRESS. GXT ONLY (NO IMAGING) Test Summary REST . . . . . . . Standing REST . . . . . . . Sitting REST 02:49 0.0 0.0 85 . 158/ 95 . . Stage 1 01:00 10.0 1.7 111 . . . . Stage 1 02:00 10.0 1.7 121 . . . . Stage 1 03:00 10.0 1.7 123 . 220/ 88 . . Stage 2 01:00 12.0 2.5 132 . . . . Stage 2 02:00 12.0 2.5 140 . . . . Stage 2 02:59 12.0 2.5 141 . 242/ 80 . Stop exercise at 05:59 RECOVERY 01:00 0.0 0.0 124 . . . . RECOVERY 02:00 0.0 0.0 108 . . . . RECOVERY 03:00 0.0 0.0 95 . 161/ 75 . . RECOVERY 04:00 0.0 0.0 90 . 161/ 75 . . RECOVERY 05:00 0.0 0.0 88 . 138/ 72 . . RECOVERY 05:18 0.0 0.0 87 . 138/ 72 . . Electronically signed by : Alysha Jung, 05/02/2023 17:49:45
== END ==
LOC: RT 10:30
PROVIDERS: PCP Family Medicine; Visit Provider Family Medicine
DX: R53.82 Chronic fatigue, unspecified; I10 Essential (primary) hypertension; Z72.0 Tobacco use
CPT/HCPCS: 93017

== ENCOUNTER → 2023-05-05 10:36 | Outpatient (CLI) | payer BC, SELFPAY ==
--- NOTE | 2023-05-05 10:39 | XR_ITS ---
FINAL REPORT CLINICAL HISTORY: arthritis, pain COMPARISON: 08/02/2018 FINDINGS: LEFT SHOULDER SERIES Three views of the left shoulder were obtained. There is no acute fracture or dislocation. There is mild degenerative change of the acromioclavicular joint. There is no soft tissue abnormality. IMPRESSION: Mild degenerative change of the acromioclavicular joint. Reviewed, Interpreted and Dictated by Jaylen Schuster III, MD Transcribed by Jr Olivier Authenticated and [facility]
--- NOTE | 2023-05-05 10:39 | XR_ITS ---
FINAL REPORT CLINICAL HISTORY: arthritis, pain FINDINGS: RIGHT SHOULDER SERIES Three views of the right shoulder were obtained. There is no acute fracture or dislocation. There is a sclerotic area in the proximal humerus, may represent an enchondroma or infarct. There is mild degenerative change of the acromioclavicular joint. IMPRESSION: Sclerotic area in the proximal humerus, may represent an enchondroma or infarct. Mild degenerative change of the acromioclavicular joint. Reviewed, Interpreted and Dictated by Jaylen Schuster III, MD Transcribed by Jr Olivier Authenticated and [facility]
== END ==
PROVIDERS: PCP Family Medicine; Visit Provider Orthopaedic Surgery
DX: M25.511 Pain in right shoulder (principal); M25.512 Pain in left shoulder
CPT/HCPCS: 73030

== ENCOUNTER 2023-12-13 16:32 | Outpatient (CLI) | payer BC, SELFPAY | END 2023-12-13 23:59 | LOC: LAB 16:33 | PROVIDERS: PCP Family Medicine; Visit Provider Urology | DX: R97.20 Elevated prostate specific antigen [PSA] (principal) | CPT/HCPCS: 36415; 84153 ==

== ENCOUNTER 2024-01-05 08:11 | Outpatient (CLI) | payer BC, SELFPAY ==
--- NOTE | 2024-01-05 08:15 | XR_ITS ---
FINAL REPORT CLINICAL HISTORY: right hip pain COMPARISON: None FINDINGS: RIGHT HIP Two views of the right hip demonstrate no acute fracture or dislocation. Moderate degenerative change is noted in the right hip. There are multiple soft tissue calcifications in the proximal right thigh of uncertain etiology. The visualized bony structures are well aligned. IMPRESSION: Moderate degenerative change present in the right hip. Reviewed, Interpreted and Dictated by Jaylen Schuster III, MD Transcribed by Debra Bacon Authenticated and [facility]
== END 2024-01-05 23:59 ==
LOC: RAD 08:11
PROVIDERS: PCP Family Medicine; Visit Provider Orthopaedic Surgery
DX: M25.551 Pain in right hip (principal)
CPT/HCPCS: 73502

== ENCOUNTER 2024-01-24 08:33 | Outpatient (CLI) | payer BC, SELFPAY ==
--- NOTE | 2024-01-24 08:38 | XR_ITS ---
FINAL REPORT CLINICAL HISTORY: Left ankle pain COMPARISON: 09/02/2021 FINDINGS: LEFT ANKLE Three views demonstrate interval placement of orthopedic anchors at the medial and lateral malleolus. There are new well-corticated ossific densities inferior to the medial malleolus measuring up to 9 mm. No acute fracture or dislocation. The visualized joint spaces are normally aligned. The soft tissues are unremarkable. IMPRESSION: Interval postoperative changes with new well-corticated ossific densities inferior to the medial malleolus. No acute process. Reviewed, Interpreted and Dictated by Pradip Peck MD Transcribed by Shanice Castle Authenticated and [facility]
--- NOTE | 2024-01-24 08:38 | XR_ITS ---
FINAL REPORT CLINICAL HISTORY: Left foot Pain COMPARISON: None FINDINGS: LEFT FOOT Three views of the left foot demonstrate no acute fracture or dislocation. The visualized joint spaces are normally aligned. There is a small plantar spur. The soft tissues are unremarkable. IMPRESSION: No acute bony abnormality. Small plantar spur. Reviewed, Interpreted and Dictated by Pradip Peck MD Transcribed by Shanice Castle Authenticated and [facility]
== END 2024-01-24 23:59 | disposition home or self-care (01) ==
LOC: RAD 08:35
PROVIDERS: PCP Family Medicine; Visit Provider Orthopaedic Surgery
DX: M25.572 Pain in left ankle and joints of left foot (principal); M79.672 Pain in left foot
CPT/HCPCS: 73610; 73630

== ENCOUNTER 2024-02-11 09:55 | Emergency (ER) | payer BC, SELFPAY ==
[2024-02-11 09:55] VITALS: BP 134/81; PULSE 94; RESP 20; TEMP 36.6; O2SAT 98; BMI 38.0
[2024-02-11 09:59] VITALS: BP 134/81; PULSE 96; O2SAT 96
--- NOTE | 2024-02-11 10:21 | CT_ITS ---
FINAL REPORT CLINICAL HISTORY: right flank pain pain after urinating COMPARISON: 04/09/2023 FINDINGS: Axial CT images of the abdomen and pelvis were obtained without intravenous contrast. Coronal and sagittal reformatted images were also obtained.This study was performed with techniques to keep radiation doses as low as reasonably achievable (ALARA). Individualized dose reduction techniques using automated exposure control or adjustment of mA and/or kV according to the patient's size were employed. Abdomen:The lung bases are clear. There is a 5 mm stone in the upper pole of the right kidney. There are several less than 3 mm in size stones in the left kidney. There is mild left hydronephrosis and hydroureter secondary to a 6 mm left UVJ stone. The gallbladder is partially collapsed. There is fatty infiltration of the liver. The spleen and pancreas are unremarkable in appearance. No mass or adenopathy is seen. No inflammatory process is identified. Pelvis: Images of the pelvis reveal left ureteral dilatation to the level of the left UVJ stone. There are multiple calcifications or stones present in the dependent portion of the bladder. The prostate is diffusely enlarged. The appendix is unremarkable in appearance. There are multiple bilateral nonspecific inguinal lymph nodes are present. Sigmoid diverticulosis without acute inflammatory process is present. No mass or abnormal fluid collection is identified. There are calcifications versus surgical clips in the posterior aspect of the right upper thigh. IMPRESSION: Mild hydronephrosis and hydroureter of the left renal collecting system secondary to a 6 mm left UVJ stone. There are multiple calcifications or stones present in the dependent portion of the bladder. Reviewed, Interpreted and Dictated by Jaylen Schuster III, MD Transcribed by Debra Bacon Authenticated and [facility]
--- NOTE | 2024-02-11 10:23 | HMH.EDGENADL ---
Discharge Plan Disposition Patient Disposition: Home, Self-Care Prescriptions Prescriptions: New ibuprofen 800 mg tablet 800 mg PO TID PRN (Reason: pain) 7 Days Qty: 20 0RF ondansetron 4 mg tablet,disintegrating 4 mg PO Q6H PRN (Reason: nausea and vomiting) 5 Days Qty: 20 0RF No Action lisinopril 20 mg tablet PO Patient Comments: TAKE 1 TABLET BY MOUTH EVERY DAY meloxicam 15 mg tablet 15 mg PO DAILY Qty: 30 2RF Referrals Follow up/Referrals: Kylie Gan MD [Primary Care Provider] - See instructions Activity Restrictions/Add. Instructions Additional Instructions/Restrictions: You have a calculus in the superior pole of the right kidney most likely not causing any symptoms. There are some dependent calcifications within the bladder which may represent a recently passed stone which could explain his symptoms in the right. However there is a 6 mm obstructing kidney stone at the left ureterovesical junction causing hydronephrosis and hydroureter on that side. I recommend that you closely follow-up with Dr. James. We will be calling the office for an appointment we will call you back with the appointment time. I just images has been sent with you as well to take to Dr. James. Clinical Impressions Clinical Impression: Right flank pain, Hydronephrosis concurrent with and due to calculi of kidney and ureter Discharge ED Provider: Carolin Staples General Adult HPI General Chief complaint: PAIN Stated complaint: lower back pain Time Seen by Provider: 02/11/24 10:18 Mode of Arrival: Ambulatory Source of Information: Patient Limitations: No Limitations Description of Symptoms (Recalled from ER Triage Doc. by RN): Patient reports lower right side back pain. Denies injury. States the pain just started around 08:30am. Patient states it is radiating to the right lower abdomen. History of Present Illness HPI narrative: Patient is a 53-year-old male presents today with sudden right flank pain radiating to his right anterior abdomen. Has a history of kidney stones but states that his most recent one was 3 to 4 months ago. Denies any fevers chills dysuria hematuria etc. Denies any respiratory symptoms. Related Data Home Medications Medication Instructions Recorded Confirmed lisinopril 20 mg tablet mg PO 01/24/24 01/24/24 Previous Rx's Medication Instructions Recorded meloxicam 15 mg tablet 15 mg PO DAILY #30 tabs 05/05/23 ibuprofen 800 mg tablet 800 mg PO TID PRN pain 7 days #20 02/11/24 tabs ondansetron 4 mg disintegrating 4 mg PO Q6H PRN nausea and 02/11/24 tablet vomiting 5 days #20 tabs Allergies Allergy/AdvReac Type Severity Reaction Status Date / Time hydrocodone [HYDROCODONE] Allergy Unknown SEVERE Verified 01/24/24 09:38 HEADACHE PFSH PFS Disclaimer: The information contained in this section may have been updated after the patient was seen, as this information can be updated by other users. Medical History Kidney stone Sleep apnea History of COVID-19 Enlarged prostate Sinus headache Diverticulosis Edema HTN (hypertension), benign Surgical History History of colonoscopy History of ankle surgery LEFT History of arthroscopy of both knees Family History Other Cancer Diabetes Social History Smoking Status: Never smoker second hand exposure: No alcohol intake: former counseling provided: none substance use type: denies use current occupational status: employed Travel in the last 8 weeks: None household members: spouse housing: house marital status: caffeine: No ROS Obtained: Yes All systems reviewed & no additional complaints except as documented Physical Exam General General appearance: alert and in no apparent distress Respiratory Respiratory exam: Present normal lung sounds bilaterally Cardiovascular Cardiovascular exam: Present regular rate and normal rhythm Abdominal Exam Abdominal exam: Present soft; Absent distention or tenderness Back Exam Back exam: Absent CVA tenderness (R) or CVA tenderness (L) Neurological Exam Neurological exam: Present alert and oriented X3 Medical Decision Making Holden Inquiry Pt receiving controlled substance: No Vital Signs: 02/11/24 09:55 02/11/24 09:59 02/11/24 11:01 Temperature 97.8 F Temperature Source Oral Pulse Rate 96 H 79 Pulse Rate [Right Radial] 94 H Respiratory Rate 20 Blood Pressure 134/81 128/78 Blood Pressure [Right Arm] 134/81 Blood Pressure Mean [Right Arm] 98 Blood Pressure Source [Right Arm] Automatic Cuff Blood Pressure Position [Right Arm] Sitting 02 Sat by Pulse Oximetry 98 96 94 L Oxygen Delivery Method Room Air Room Air Lab Data Lab results reviewed: Yes I reviewed the patient's lab results. Lab Results 02/11/24 10:10: WBC 6.8, RBC 4.47 L, Hgb 13.8 L, Hct 42.2, MCV 94.5 H, MCH 30.8, MCHC 32.6, RDW 14.2, Plt Count 233, MPV 8.3, Neut % (Auto) 71.0, Lymph % (Auto) 20.1, Norman % (Auto) 6.1, Eos % (Auto) 2.0, Baso % (Auto) 0.8, Neut # (Auto) 4.8, Lymph # (Auto) 1.4, Norman # (Auto) 0.4, Eos # (Auto) 0.1, Baso # (Auto) 0.1, Sodium 142, Potassium 4.0, Chloride 108 H, Carbon Dioxide 24, Anion Gap 14.0, BUN 33 H, Creatinine 1.50 H, Estimated Creat Clear 107, Estimated GFR 49 L, Est GFR ( Amer) 59, Glucose 149 H, Calcium 9.7, Total Bilirubin 0.6, AST 42, ALT 46, Alkaline Phosphatase 74, Total Protein 8.2, Albumin 4.6, Globulin 3.6 H, Albumin/Globulin Ratio 1.3, Lipase 170 02/11/24 10:44: Urine Color Yellow, Urine Appearance Clear, Urine pH 5.5, Ur Specific [place] >= 1.030, Urine Protein Negative, Urine Glucose (UA) Negative, Urine Ketones Negative, Urine Blood 1+, Urine Nitrate Negative, Urine Bilirubin Negative, Urine Urobilinogen 0.2, Ur Leukocyte Esterase Negative, Urine RBC 3-5, Urine WBC 3-5, Ur Squamous Epith Cells Occasional, Triple Phos Crystals 1+, Urine Bacteria Trace 02/11/24 10:10 02/11/24 10:10 Orders (Tests/Meds): ED MEDICATIONS Generic Name Dose Route Start Last Admin Trade Name Freq PRN Reason Stop Dose Admin Sodium Chloride 10 ml 02/11/24 10:13 Sodium Chloride 0.9% 10ml Flush Syringe IV 03/12/24 10:12 NEEDED PRN Maintain IV Site Discontinued Medications Generic Name Dose Route Start Last Admin Trade Name Freq PRN Reason Stop Dose Admin Lactated Ringer's 1,000 mls @ 999 mls/hr 02/11/24 10:30 02/11/24 10:40 Lactated Ringer's 1000 Ml Bag IV 02/11/24 11:30 999 mls/hr .Q1H1M JAZMIN Administration Ketorolac Tromethamine 15 mg 02/11/24 10:21 02/11/24 10:40 Ketorolac 30mg/Ml Vial IV 02/11/24 10:22 15 mg ONCE ONE Administration Morphine Sulfate 4 mg 02/11/24 10:21 02/11/24 10:40 Morphine 4mg/Ml Syringe IV 02/11/24 10:22 4 mg ONCE ONE Administration Ondansetron HCl 4 mg 02/11/24 10:21 02/11/24 10:40 Ondansetron 4mg/2ml Vial IV 02/11/24 10:22 4 mg ONCE ONE Administration ORDERS Category Date Time Status CT abdomen pelvis wo con Stat Cat Scan 02/11/24 10:21 Completed CBC w/Auto Diff [Complete Blood Count Auto Diff] Stat Lab 02/11/24 10:10 Completed CMP [Comprehensive Metabolic Panel] Stat Lab 02/11/24 10:10 Completed Lipase Stat Lab 02/11/24 10:10 Completed UA [Urinalysis and Microscopic] Stat Lab 02/11/24 10:44 Completed Medical Decision Narrative: Well-appearing 53-year-old male presents today with sudden right flank pain radiating to his right anterior abdomen most consistent with a kidney stone. Has no respiratory symptoms do not suspect any cardiopulmonary pathology such as pulmonary bulging. Has no CVA tenderness pyelonephritis certainly on the differential this is unlikely. Also has no abdominal tenderness surgical pathology. AAA is always on the differential with possible nephrolithiasis. Will get a noncontrasted CT scan for further evaluation. Pain medication IV fluids and nausea medicine have been administered will reassess. Reassessment 1212 patient still feeling much better. CT scan performed on first interpreted which shows a calculi in the superior pole of the right kidney but nothing in the collecting system. Urinalysis is negative for any signs of infection. There is blood in urine. There are some dependent calculi itself which could be business development representative of a recently passed stone. However incidentally there was a 6 mm UVJ stone with associated hydronephrosis and hydroureter. Discussed the findings with the patient we provided a CT with images for him to follow-up with his urologist Dr. James. Symptoms are adequately controlled. No evidence of sepsis. Patient discharged in stable condition. Critical Care Critical Care Time Critical Care Time: No
[2024-02-11 10:29] LABS: Basophils # 0.1 K/mm3 (0-0.2); Basophils % 0.8 % (0.1-2.0); Eosinophils # 0.1 K/mm3 (0.0-0.4); Hematocrit 42.2 % (42.0-52.0); Hemoglobin 13.8 g/dL (14.1-18.0); Lymphocytes # 1.4 K/mm3 (0.7-4.5); Lymphocytes % 20.1 % (10-50); Mean Corpuscular HGB Conc 32.6 g/dL (31.8-35.4); Mean Corpuscular Hemoglobin 30.8 pg (27.0-31.2); Mean Corpuscular Volume 94.5 fl (80-94); Mean Platelet Volume 8.3 fl (7.4-10.4); Monocytes # 0.4 K/mm3 (0.1-1.0); Monocytes % 6.1 % (1.7-9.3); Neutrophils # 4.8 K/mm3 (1.8-7.8); Platelet Count 233 K/mm3 (142-424); Red Blood Count 4.47 M/mm3 (4.60-6.20); Red Cell Distribution Width 14.2 % (11.5-17.5); White Blood Count 6.8 K/mm3 (4.8-10.8)
[2024-02-11 10:39] LABS: Chloride 108 mmol/L (98-107); Sodium 142 mmol/L (136-145)
[2024-02-11] MEDS: ONDANSETRON 4MG/2ML VIAL 4 MG IV (10:40)
[2024-02-11] MEDS: KETOROLAC 30MG/ML VIAL 15 MG IV (10:40)
[2024-02-11] MEDS: MORPHINE 4MG/ML SYRINGE 4 MG IV (10:40)
[2024-02-11] MEDS: LACTATED RINGERS 1000ML 1,000 ML 999 ML IV (10:40)
[2024-02-11 10:42] LABS: Alanine Aminotransferase 46 U/L (12-78); Alkaline Phosphatase 74 U/L (38-126); Aspartate Amino Transferase 42 U/L (17-59); Bilirubin,Total 0.6 mg/dl (0.2-1.3); Blood Urea Nitrogen 33 mg/dl (9-20); Calcium 9.7 mg/dl (8.4-10.2); Carbon Dioxide 24 mmol/L (22.0-30.0); Creatinine Clearance Estimated 107 mL/min (50-200); Estimated Glomerular Filt Rate 49 ml/min (>60); GFR (African American) 59 ML/MIN (>60); Glucose 149 mg/dl (74-100); Lipase 170 U/L (23-300)
[2024-02-11 10:43] LABS: Albumin Level 4.6 g/dl (3.5-5.0); Albumin/Globulin Ratio 1.3 (1.1-1.8); Globulin 3.6 g/dL (1.3-3.2); Total Protein,Serum 8.2 g/dl (6.3-8.2)
--- NOTE | 2024-02-11 10:47 | PC.NURSE ---
Rounded on patient, no needs voiced at this time.
[2024-02-11 10:48] LABS: Microscopic, Urine URINE MICROSCOPIC (MICROSCOPIC)
[2024-02-11 10:53] LABS: Appearance,Urine CLEAR (Clear); Bilirubin,Urine Negative (Negative); Blood, Urine 1+ (Negative); Color,Urine YELLOW (Yellow); Glucose,Urine (UA) Negative (Negative); Ketones,Urine Negative (Negative); Leukocyte Esterase,Urine Negative (Negative); Nitrate,Urine Negative (Negative); PH,Urine 5.5 (5.0-8.5); Protein,Urine Negative (Negative); Specific Gravity, Urine >= 1.030 (1.005-1.030); Urobilinogen,Urine 0.2 EU/dl (0.2)
[2024-02-11 11:01] VITALS: BP 128/78; PULSE 79; O2SAT 94
[2024-02-11 11:07] LABS: Bacteria,Urine Trace /lpf
[2024-02-11 11:08] LABS: Squamous Epithelial Cell,Urine Occasional #/hpf (0-5); Triple Phosphate Crystal,Urine 1+ /lpf
--- NOTE | 2024-02-11 12:10 | PC.NURSE ---
Called 's office to make a f/u appointment. On Lunch at this time. aware.
[2024-02-11 12:11] VITALS: BP 141/78; PULSE 84; RESP 18; TEMP 36.6; O2SAT 98
--- NOTE | 2024-02-11 13:37 | PC.NURSE ---
1:30- Called office made F/U nathanael Tuesday 02/13 1:15. Patient made aware of nathanael as well.
== END 2024-02-11 12:26 | disposition home or self-care (01) ==
PROVIDERS: Emergency Provider Student in an Organized Health Care Education/Training Program; PCP Family Medicine
DX: N13.2 Hydronephrosis with renal and ureteral calculous obstruction (principal); N13.4 Hydroureter; R10.31 Right lower quadrant pain; M54.59 Other low back pain; I10 Essential (primary) hypertension
CPT/HCPCS: 74176; 80053; 81001; 83690; 85025; 96361; 96374; 96375; 99285; J2405

== ENCOUNTER 2024-02-28 14:03 | Outpatient (CLI) | payer BC, SELFPAY ==
--- NOTE | 2024-02-28 14:24 | ECG_ITS ---
APPROVED REPORT Exam: Resting ECG HR:74 bpm ECG Measurements Heart Rate 74 AXES [place] 160 P 40 QRSd 101 QRS 9 QT 374 T -5 QTc 401 Conclusion SINUS RHYTHM VOLTAGE CRITERIA FOR LVH [MEETS CRITERIA IN ONE OF: R(aVL), S(V1), R(V5), R(V5/V6)+S(V1)] ABNORMAL ECG UNCONFIRMED REPORT Electronically signed by : Juliano Sprague MD 03/01/2024 13:36:31
[2024-02-28 15:42] LABS: Potassium 4.3 mmoL/L (3.5-5.1)
[2024-02-28 15:44] LABS: Anion Gap 13.3 mEq/L (5-15); Blood Urea Nitrogen 25 mg/dl (9-20); Calcium 9.2 mg/dl (8.4-10.2); Carbon Dioxide 25 mmol/L (22.0-30.0); Chloride 107 mmol/L (98-107); Estimated Glomerular Filt Rate 63 ml/min (>60); GFR (African American) 76 ML/MIN (>60); Glucose 87 mg/dl (74-100); Sodium 141 mmol/L (136-145)
== END 2024-02-28 23:59 | disposition home or self-care (01) ==
LOC: LAB 14:06
PROVIDERS: PCP Family Medicine; Visit Provider Urology
DX: Z01.818 Encounter for other preprocedural examination (principal)
CPT/HCPCS: 36415; 80048; 93005

== ENCOUNTER 2024-03-02 09:34 | Emergency (ER) | payer BC, SELFPAY ==
[2024-03-02] VITALS (8 sets, daily range): BP systolic 122–168; BP diastolic 81–96; PULSE 63–87; RESP 18–20; TEMP 36.6–37.1; O2SAT 96–97; BMI 32.1
--- NOTE | 2024-03-02 09:54 | CT_ITS ---
FINAL REPORT TECHNIQUE: Axial images through the abdomen and pelvis were performed without contrast. This study was performed with techniques to keep radiation doses as low as reasonably achievable, (ALARA). Individualized dose reduction techniques using automated exposure control or adjustment of mA and/or kV according to the patient's size were employed. CLINICAL HISTORY: R flank pain, lithotripsy 2 d ago COMPARISON: 02/11/2024 FINDINGS: Abdomen: There are chronic changes at the lung bases. There is extensive fatty infiltration of the liver. The gallbladder is contracted. Calcified granuloma is noted in the spleen. The pancreas and adrenals are unremarkable. There is an obstructing stone at the right UPJ measuring 8 mm. There is mild right hydronephrosis. Multiple small stones are noted in the renal collecting systems bilaterally. Pelvis: The urinary bladder is distended. Air is noted in the independent portion, probably iatrogenic. The previously noted bladder stones are not seen on today's exam. The appendix is not visualized. There is no pelvic mass or inflammation. IMPRESSION: Obstructing stone at the right UPJ, new. Resolution of previously noted bladder stones, probably related to interval urologic procedure. Extensive fatty infiltration of the liver. Reviewed, Interpreted and Dictated by Pradip Peck MD Transcribed by Shanice Castle Authenticated and [facility]
--- NOTE | 2024-03-02 10:01 | ED_ITS ---
Discharge Plan Disposition Patient Disposition: Home, Self-Care Condition: Good Prescriptions Prescriptions: New ketorolac 10 mg tablet 10 mg PO Q8H PRN (Reason: pain) Qty: 10 0RF oxycodone 5 mg tablet 5 mg PO Q8H PRN (Reason: pain) Qty: 12 0RF ondansetron 4 mg tablet,disintegrating 4 mg PO Q8H PRN (Reason: nausea and vomiting) 4 Days Qty: 12 0RF tamsulosin [Flomax] 0.4 mg capsule 0.4 mg PO DAILY Qty: 7 0RF No Action lisinopril 20 mg tablet PO Patient Comments: TAKE 1 TABLET BY MOUTH EVERY DAY meloxicam 15 mg tablet 15 mg PO DAILY Qty: 30 2RF ibuprofen 800 mg tablet 800 mg PO TID PRN (Reason: pain) 7 Days Qty: 20 0RF ondansetron 4 mg tablet,disintegrating 4 mg PO Q6H PRN (Reason: nausea and vomiting) 5 Days Qty: 20 0RF Referrals Follow up/Referrals: Kylie Gan MD [Primary Care Provider] - See instructions Activity Restrictions/Add. Instructions Additional Instructions/Restrictions: You were evaluated in the emergency department today. Please follow-up closely with Dr. James with urology. He will contact you. He would like to see you in clinic in [place] tomorrow. 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 Do not drive or operate heavy machinery while taking narcotic pain medication. Do not take ibuprofen or meloxicam with Toradol, as they are all NSAIDs. You may also take Tylenol at home in addition to these medications as needed for pain. Return to the emergency department for new or worsening symptoms, such as fever greater than 100.4 ?F, intractable nausea and vomiting, or significant worsening of pain. Clinical Impressions Clinical Impression: Obstruction of right ureteropelvic junction (UPJ) due to stone, PAULINA (acute kidney injury) Stand Alone Forms Stand Alone Forms: Work/School Release Instructions Patient Instructions: DI for Kidney Stones, DI for Acute Pain -- Adult Discharge ED Provider: Kourtney Ariza General Adult HPI General Chief complaint: PAIN Stated complaint: Pain in R abd and lower back Time Seen by Provider: 03/02/24 09:43 Mode of Arrival: Ambulatory Source of Information: Patient Limitations: No Limitations Description of Symptoms (Recalled from ER Triage Doc. by RN): pt to ed c/o right flank pain. pt states he had a left kidney stone removed and a right kidney stone lithotripsy done wednesday at [facility]. pt states he woke up this morning with severe right sided pain. pt denies visible blood in his urine. History of Present Illness HPI narrative: This patient is a 53-year-old male with a history of hypertension, diverticulitis, BPH, and recent procedure for kidney stone presenting to the emergency department for evaluation with concern for severe abdominal and right flank pain. Patient reports that 02/29/2024, he had lithotripsy done to the right kidney as well as a left ureteral stone removed. He has that yesterday, he was doing okay, but this morning the pain is severe, constant, and nothing makes it better or worse. He states he would just wants the pain to stop. He also notes that he is having trouble urinating. He denies any fevers, vomiting, change in bowel movements or other concerns. He notes that he feels like he needs to vomit but he cannot. Medical record review, he was evaluated here 02/11/2024 and diagnosed with left obstructive ureterolithiasis. He also had multiple bladder calcifications at that time. He was also found to have a 5 mm stone in the upper pole of the right kidney. No other concerns noted at this time. Related Data Home Medications Medication Instructions Recorded Confirmed lisinopril 20 mg tablet mg PO 01/24/24 01/24/24 Previous Rx's Medication Instructions Recorded meloxicam 15 mg tablet 15 mg PO DAILY #30 tabs 05/05/23 ibuprofen 800 mg tablet 800 mg PO TID PRN pain 7 days #20 02/11/24 tabs ondansetron 4 mg disintegrating 4 mg PO Q6H PRN nausea and 02/11/24 tablet vomiting 5 days #20 tabs ketorolac 10 mg tablet 10 mg PO Q8H PRN pain #10 tabs 03/02/24 ondansetron 4 mg disintegrating 4 mg PO Q8H PRN nausea and 03/02/24 tablet vomiting 4 days #12 tabs oxycodone 5 mg tablet 5 mg PO Q8H PRN pain #12 tabs 03/02/24 tamsulosin 0.4 mg capsule (Flomax) 0.4 mg PO DAILY #7 caps 03/02/24 Allergies Allergy/AdvReac Type Severity Reaction Status Date / Time hydrocodone [HYDROCODONE] Allergy Unknown SEVERE Verified 01/24/24 09:38 [facility] Disclaimer: The information contained in this section may have been updated after the patient was seen, as this information can be updated by other users. Medical History Kidney stone Sleep apnea History of COVID-19 Enlarged prostate Sinus headache Diverticulosis Edema HTN (hypertension), benign Surgical History History of colonoscopy History of ankle surgery History of arthroscopy of both knees Family History Other Cancer Diabetes Social History Smoking Status: Never smoker second hand exposure: No alcohol intake: former counseling provided: none substance use type: denies use current occupational status: employed Travel in the last 8 weeks: None household members: spouse housing: house marital status: caffeine: No ROS Obtained: Yes All systems reviewed & no additional complaints except as documented Physical Exam General General appearance: alert and obese Comment: Uncomfortable appearing Head Head exam: atraumatic and normocephalic Eye Eye exam: Present normal appearance, PERRL and EOMI ENT ENT exam: Present normal exam, normal oropharynx, mucous membranes moist and normal external ear exam Neck Neck exam: Present normal inspection, full ROM and trachea midline; Absent tenderness Chest Chest inspection: Present normal inspection and symmetric chest wall rise; Absent tenderness Respiratory Respiratory exam: Present normal lung sounds bilaterally; Absent respiratory distress, wheezes, stridor or accessory muscle use Cardiovascular Cardiovascular exam: Present regular rate and normal rhythm Abdominal Exam Abdominal exam: Present distention (Mild) and tenderness (Generalized, worse in the right upper abdomen); Absent guarding, rebound or rigidity Extremities Exam Extremities exam: Present normal inspection, full ROM and normal capillary refill; Absent tenderness or edema Back Exam Back exam: Present full ROM and CVA tenderness (R) Neurological Exam Neurological exam: Present alert, oriented X3, CN II-XII intact and normal gait; Absent motor sensory deficit Psychiatric Psychiatric exam: Present normal affect and normal mood Skin Skin exam: Present warm and dry Medical Decision Making Medical Records Medical records reviewed: Yes I reviewed the patient's medical records. Holden Inquiry Pt receiving controlled substance: Yes Holden was queried for this patient: Yes Risks and benefits of using a controlled substance: were discussed with pt by me Vital Signs: 03/02/24 09:49 03/02/24 10:31 03/02/24 11:00 Temperature 98.8 F Temperature Source Oral Pulse Rate 74 71 Pulse Rate [Left Radial] 87 Respiratory Rate 20 Blood Pressure 137/81 144/85 H Blood Pressure [Right Arm] 168/96 H Blood Pressure Mean 99 104 Blood Pressure Mean [Right Arm] 120 02 Sat by Pulse Oximetry 97 96 97 Oxygen Delivery Method Room Air Room Air Room Air 03/02/24 11:30 03/02/24 12:01 03/02/24 12:31 Temperature Temperature Source Pulse Rate 77 63 71 Pulse Rate [Left Radial] Respiratory Rate Blood Pressure 145/90 H 143/95 H 122/93 H Blood Pressure [Right Arm] Blood Pressure Mean 114 110 102 Blood Pressure Mean [Right Arm] 02 Sat by Pulse Oximetry 97 96 97 Oxygen Delivery Method Room Air Room Air Room Air 03/02/24 13:01 03/02/24 13:27 Temperature 98 F Temperature Source Oral Pulse Rate 74 63 Pulse Rate [Left Radial] Respiratory Rate 18 Blood Pressure 139/88 139/88 Blood Pressure [Right Arm] Blood Pressure Mean 106 Blood Pressure Mean [Right Arm] 02 Sat by Pulse Oximetry 96 Oxygen Delivery Method Room Air Room Air Lab Data Lab results reviewed: Yes I reviewed the patient's lab results. Lab Results 03/02/24 09:46: WBC 10.8, RBC 4.37 L, Hgb 13.4 L, Hct 41.7 L, MCV 95.4 H, MCH 30.6, MCHC 32.1, RDW 13.9, Plt Count 222, MPV 8.8, Neut % (Auto) 77.1, Lymph % (Auto) 14.6, [place] % (Auto) 6.5, Eos % (Auto) 1.0, Baso % (Auto) 0.7, Neut # (Auto) 8.3 H, Lymph # (Auto) 1.6, [place] # (Auto) 0.7, Eos # (Auto) 0.1, Baso # (Auto) 0.1, Sodium 142, Potassium 4.8, Chloride 107, Carbon Dioxide 27, Anion Gap 12.8, BUN 28 H, Creatinine 1.80 H D, Estimated Creat Clear 75, Estimated GFR 40 L, Est GFR ( Amer) 48 L D, Glucose 104 H, Lactate 1.3, Calcium 9.7, Total Bilirubin 0.5, AST 59, ALT 42, Alkaline Phosphatase 87, Total Protein 8.3 H, Albumin 4.7, Globulin 3.6 H, Albumin/Globulin Ratio 1.3, Lipase 142 03/02/24 12:12: Urine Color Dark yellow, Urine Appearance Slightly cloudy, Urine pH 6.0, Ur Specific [place] 1.020, Urine Protein 1+, Urine Glucose (UA) Negative, Urine Ketones Negative, Urine Blood 3+, Urine Nitrate Negative, Urine Bilirubin Negative, Urine Urobilinogen 0.2, Ur Leukocyte Esterase Negative, Urine RBC Tntc, Urine WBC 3-5, Ur Squamous Epith Cells Occasional, Urine Bacteria Trace 03/02/24 09:46 03/02/24 09:46 Orders (Tests/Meds): ED MEDICATIONS Discontinued Medications Generic Name Dose Route Start Last Admin Trade Name Freq PRN Reason Stop Dose Admin Hydromorphone HCl 0.5 mg 03/02/24 09:54 03/02/24 10:12 Hydromorphone 2mg/Ml Syringe IV 03/02/24 09:55 0.5 mg ONCE ONE Administration Lactated Ringer's 1,000 mls @ 999 mls/hr 03/02/24 09:54 03/02/24 10:12 Lactated Ringer's 1000 Ml Bag IV 03/02/24 10:54 999 mls/hr .Q1H1M ONE Administration Lactated Ringer's 1,000 mls @ 999 mls/hr 03/02/24 11:34 03/02/24 12:40 Lactated Ringer's 1000 Ml Bag IV 03/02/24 12:34 999 mls/hr .Q1H1M ONE Administration Ketorolac Tromethamine 15 mg 03/02/24 09:54 03/02/24 10:12 Ketorolac 30mg/Ml Vial IV 03/02/24 09:55 15 mg ONCE ONE Administration Ondansetron HCl 4 mg 03/02/24 09:54 03/02/24 10:12 Ondansetron 4mg/2ml Vial IV 03/02/24 09:55 4 mg ONCE ONE Administration ORDERS Category Date Time Status CT abdomen pelvis wo con Stat Cat Scan 03/02/24 09:54 Completed Complete Blood Count Auto Diff Stat Lab 03/02/24 09:46 Completed Comprehensive Metabolic Panel Stat Lab 03/02/24 09:46 Completed Lactic Acid Stat Lab 03/02/24 09:46 Completed Lipase Stat Lab 03/02/24 09:46 Completed Urinalysis and Microscopic Stat Lab 03/02/24 12:12 Completed Urine Culture Stat Micro 03/02/24 12:12 Received Medical Decision Narrative: In summary, this patient is a 53-year-old male presenting to the Emergency Department for evaluation of right-sided abdominal/flank pain in setting of recent lithotripsy. Differential diagnoses considered include but are not limited to obstructive ureterolithiasis, postoperative complication, bowel obstruction, constipation, colitis, cholecystitis. Ruling out the most morbid conditions drove assessment. It should be noted patient's history includes obesity and hypertension which are not at goal therapy. This complicates all aspects of care by increasing patient's risk for morbidity. I reviewed patient's past medical records and noted previous evaluation and diagnosis of ureterolithiasis as per HPI. On exam, the patient is very uncomfortable appearing. He has right upper abdominal tenderness as well as right CVA tenderness. Workup included CBC, CMP, lipase, lactic acid, urinalysis, and CT abdomen and pelvis without IV contrast. He was given a bolus of IV fluids as well as IV Toradol, Dilaudid, and Zofran for symptomatic improvement. I independently interpreted CT scan prior to the radiologist read and noted obstructive right ureterolithiasis. Radiology measured this at 8 mm. Please see their read for final interpretation. Labs were obtained that demonstrated hematuria and mildly elevated creatinine at 1.8 but no other acutely concerning abnormalities. On reassessment, patient had good improvement after administration of as above and he is resting comfortably. Given that he follows with Dr. James with urology at [facility], I called and had an interactive discussion with Dr. James who advised that he will contact the patient to see him in clinic tomorrow. No indication for admission per Dr. James at this time. Patient was given a second liter bolus of IV fluids. At this time, he was deemed appropriate for discharge home with prescriptions for oxycodone, Toradol, Flomax, and Zofran. He was given instructions for supportive management, strict return precautions, and he was discharged after all questions were answered. Critical Care Critical Care Time Critical Care Time: No
[2024-03-02 10:08] LABS: Basophils # 0.1 K/mm3 (0-0.2); Basophils % 0.7 % (0.1-2.0); Eosinophils # 0.1 K/mm3 (0.0-0.4); Hematocrit 41.7 % (42.0-52.0); Hemoglobin 13.4 g/dL (14.1-18.0); Lymphocytes # 1.6 K/mm3 (0.7-4.5); Lymphocytes % 14.6 % (10-50); Mean Corpuscular HGB Conc 32.1 g/dL (31.8-35.4); Mean Corpuscular Hemoglobin 30.6 pg (27.0-31.2); Mean Corpuscular Volume 95.4 fl (80-94); Mean Platelet Volume 8.8 fl (7.4-10.4); Monocytes # 0.7 K/mm3 (0.1-1.0); Monocytes % 6.5 % (1.7-9.3); Neutrophils # 8.3 K/mm3 (1.8-7.8); Neutrophils % 77.1 % (37.0-80.0); Platelet Count 222 K/mm3 (142-424); Red Blood Count 4.37 M/mm3 (4.60-6.20); Red Cell Distribution Width 13.9 % (11.5-17.5); White Blood Count 10.8 K/mm3 (4.8-10.8)
[2024-03-02 10:09] LABS: Chloride 107 mmol/L (98-107); Potassium 4.8 mmoL/L (3.5-5.1); Sodium 142 mmol/L (136-145)
[2024-03-02 10:11] LABS: Blood Urea Nitrogen 28 mg/dl (9-20); Creatinine Clearance Estimated 75 mL/min (50-200); Estimated Glomerular Filt Rate 40 ml/min (>60); GFR (African American) 48 ML/MIN (>60)
[2024-03-02 10:12] LABS: Alanine Aminotransferase 42 U/L (12-78); Albumin Level 4.7 g/dl (3.5-5.0); Albumin/Globulin Ratio 1.3 (1.1-1.8); Alkaline Phosphatase 87 U/L (38-126); Anion Gap 12.8 mEq/L (5-15); Aspartate Amino Transferase 59 U/L (17-59); Bilirubin,Total 0.5 mg/dl (0.2-1.3); Calcium 9.7 mg/dl (8.4-10.2); Carbon Dioxide 27 mmol/L (22.0-30.0); Globulin 3.6 g/dL (1.3-3.2); Glucose 104 mg/dl (74-100); Lipase 142 U/L (23-300); Total Protein,Serum 8.3 g/dl (6.3-8.2)
[2024-03-02] MEDS: ONDANSETRON 4MG/2ML VIAL 4 MG IV (10:12)
[2024-03-02] MEDS: HYDROMORPHONE 2MG/ML SYRINGE 0.5 MG IV (10:12)
[2024-03-02] MEDS: LACTATED RINGERS 1000ML 1,000 ML 999 ML IV ×2 (10:12→12:40)
[2024-03-02] MEDS: KETOROLAC 30MG/ML VIAL 15 MG IV (10:12)
[2024-03-02 10:15] LABS: Lactic Acid 1.3 mmol/L (0.7-2.1)
[2024-03-02 12:15] LABS: Microscopic, Urine URINE MICROSCOPIC (MICROSCOPIC)
[2024-03-02 12:21] LABS: Bilirubin,Urine Negative (Negative); Blood, Urine 3+ (Negative); Glucose,Urine (UA) Negative (Negative); Ketones,Urine Negative (Negative); Leukocyte Esterase,Urine Negative (Negative); Nitrate,Urine Negative (Negative); Protein,Urine 1+ (Negative); Urobilinogen,Urine 0.2 EU/dl (0.2)
[2024-03-02 12:32] LABS: Appearance,Urine Slightly Cloudy (Clear); Color,Urine Dark Yellow (Yellow)
[2024-03-02 12:48] LABS: RBC,Urine TNTC #/hpf (0-3)
[2024-03-02 13:04] LABS: Bacteria,Urine Trace /lpf; Squamous Epithelial Cell,Urine Occasional #/hpf (0-5)
== END 2024-03-02 13:28 | disposition home or self-care (01) ==
PROVIDERS: Emergency Provider Emergency Medicine; PCP Family Medicine
DX: N13.0 Hydronephrosis with ureteropelvic junction obstruction (principal); R10.31 Right lower quadrant pain; M54.59 Other low back pain; N17.8 Other acute kidney failure; K76.0 Fatty (change of) liver, not elsewhere classified; I10 Essential (primary) hypertension
CPT/HCPCS: 74176; 80053; 81001; 83605; 83690; 85025; 87086; 96361; 96374; 96375; 99285; J2405; J7120

== ENCOUNTER 2024-03-07 17:49 | Emergency (ER) | payer BC, SELFPAY ==
[2024-03-07 17:50] VITALS: BP 148/103; PULSE 109; RESP 16; TEMP 36.7; O2SAT 99; BMI 36.8
--- NOTE | 2024-03-07 17:51 | ED_ITS ---
Discharge Plan Disposition Patient Disposition: Xfer Short-Term Hosp Condition: Serious Prescriptions Prescriptions: No Action lisinopril 20 mg tablet PO Patient Comments: TAKE 1 TABLET BY MOUTH EVERY DAY meloxicam 15 mg tablet 15 mg PO DAILY Qty: 30 2RF ibuprofen 800 mg tablet 800 mg PO TID PRN (Reason: pain) 7 Days Qty: 20 0RF ketorolac 10 mg tablet 10 mg PO Q8H PRN (Reason: pain) Qty: 10 0RF oxycodone 5 mg tablet 5 mg PO Q8H PRN (Reason: pain) Qty: 12 0RF ondansetron 4 mg tablet,disintegrating 4 mg PO Q8H PRN (Reason: nausea and vomiting) 4 Days Qty: 12 0RF tamsulosin [Flomax] 0.4 mg capsule 0.4 mg PO DAILY Qty: 7 0RF Referrals Follow up/Referrals: Kylie Gan MD [Primary Care Provider] - See instructions Activity Restrictions/Add. Instructions Additional Instructions/Restrictions: Please go directly to the [facility] emergency department to be evaluated. The accepting physician is Dr. Hebert Clinical Impressions Clinical Impression: Ureterolithiasis, Obstructed, uropathy Hydronephrosis Qualifiers: Hydronephrosis type: with renal calculous obstruction Qualified Code(s): N13.2 - Hydronephrosis with renal and ureteral calculous obstruction Leukocytosis Qualifiers: Leukocytosis type: unspecified Qualified Code(s): D72.829 - Elevated white blood cell count, unspecified Stand Alone Forms Stand Alone Forms: Transfer Record - ED Discharge ED Provider: Won Graham General Adult HPI <VENKATA Cornejo - Last Filed: 03/07/24 21:20> General Chief complaint: PAIN Stated complaint: back pain, poss kidney stones Time Seen by Provider: 03/07/24 17:51 History of Present Illness HPI narrative: She presents for right flank pain. Patient has had a pretty complicated May with obstructing kidney stones on the left side and then on the right. His most recent instrumentation was approximately a week ago by Dr. James for a right UPJ stone that was approximately 8 mm on imaging. Patient was given pain medication and put on Omnicef postoperatively. Patient presents today with increasing right-sided flank pain nausea and malaise. He denies chest pain subjective fever shortness of breath vomiting or diarrhea hemoptysis hematochezia hematemesis although he does endorse hematuria and nausea. Related Data Home Medications Medication Instructions Recorded Confirmed lisinopril 20 mg tablet mg PO 01/24/24 03/06/24 Previous Rx's Medication Instructions Recorded meloxicam 15 mg tablet 15 mg PO DAILY #30 tabs 05/05/23 ibuprofen 800 mg tablet 800 mg PO TID PRN pain 7 days #20 02/11/24 tabs ketorolac 10 mg tablet 10 mg PO Q8H PRN pain #10 tabs 03/02/24 ondansetron 4 mg disintegrating 4 mg PO Q8H PRN nausea and 03/02/24 tablet vomiting 4 days #12 tabs oxycodone 5 mg tablet 5 mg PO Q8H PRN pain #12 tabs 03/02/24 tamsulosin 0.4 mg capsule (Flomax) 0.4 mg PO DAILY #7 caps 03/02/24 Allergies Allergy/AdvReac Type Severity Reaction Status Date / Time hydrocodone [HYDROCODONE] Allergy Unknown SEVERE Verified 03/06/24 10:46 HEADACHE PFSH <VENKATA Cornejo - Last Filed: 03/07/24 21:20> PFSH Disclaimer: The information contained in this section may have been updated after the patient was seen, as this information can be updated by other users. Medical History Kidney stone Sleep apnea History of COVID-19 Enlarged prostate Sinus headache Diverticulosis Edema HTN (hypertension), benign Surgical History History of colonoscopy History of ankle surgery LEFT History of arthroscopy of both knees Family History Other Cancer Diabetes Social History Smoking Status: Former smoker tobacco type: cigarettes second hand exposure: No alcohol intake: former counseling provided: none substance use type: denies use current occupational status: employed Travel in the last 8 weeks: None household members: spouse housing: house marital status: caffeine: No <VENKATA Cornejo - Last Filed: 03/07/24 21:20> ROS Obtained: Yes Systems reviewed as appropriate & no additional complaints except as documented Physical Exam <VENKATA Cornejo - Last Filed: 03/07/24 21:20> General General appearance: alert and in no apparent distress Respiratory Respiratory exam: Present normal lung sounds bilaterally Cardiovascular Cardiovascular exam: Present regular rate and normal rhythm Abdominal Exam Abdominal exam: Present soft, tenderness and normal bowel sounds Extremities Exam Extremities exam: Present normal inspection and full ROM Back Exam Back exam: Present normal inspection, full ROM and tenderness; Absent CVA tenderness (R) Neurological Exam Neurological exam: Present alert and oriented X3 Psychiatric Psychiatric exam: Present normal affect and normal mood Skin Skin exam: Present warm, dry and normal color Medical Decision Making <VENKATA Cornejo - Last Filed: 03/07/24 21:20> Medical Records Medical records reviewed: Yes I reviewed the patient's medical records. Holden Inquiry Pt receiving controlled substance: No Vital Signs: 03/07/24 17:50 03/07/24 18:08 03/07/24 18:15 Temperature 98.1 F Temperature Source Oral Pulse Rate 111 H 106 H Pulse Rate [Left Radial] 109 H Respiratory Rate 16 Blood Pressure Blood Pressure [Right Arm] 148/103 H Blood Pressure Mean [Right Arm] 118 Blood Pressure Source [Right Arm] Automatic Cuff Blood Pressure Position [Right Arm] Sitting 02 Sat by Pulse Oximetry 99 95 96 Oxygen Delivery Method Room Air 03/07/24 18:30 03/07/24 19:00 Temperature Temperature Source Pulse Rate 105 H 90 Pulse Rate [Left Radial] Respiratory Rate Blood Pressure 111/82 119/75 Blood Pressure [Right Arm] Blood Pressure Mean [Right Arm] Blood Pressure Source [Right Arm] Blood Pressure Position [Right Arm] 02 Sat by Pulse Oximetry 95 96 Oxygen Delivery Method Room Air Room Air Lab Data Lab results reviewed: Yes I reviewed the patient's lab results. Lab Results 03/07/24 18:10: WBC 15.8 H, RBC 4.34 L, Hgb 13.3 L, Hct 41.0 L, MCV 94.5 H, MCH 30.8, MCHC 32.6, RDW 13.8, Plt Count 251, MPV 8.4, Neut % (Auto) 76.9, Lymph % (Auto) 11.5, [place] % (Auto) 9.5 H, Eos % (Auto) 1.5, Baso % (Auto) 0.6, Neut # (Auto) 12.2 H, Lymph # (Auto) 1.8, [place] # (Auto) 1.5 H, Eos # (Auto) 0.2, Baso # (Auto) 0.1, Total Counted 100, Neutrophils % (Manual) 77 H, Band Neutrophils % 4.0, Lymphocytes % (Manual) 11, Monocytes % (Manual) 5, Eosinophils % (Manual) 3, Platelet Estimate Normal, RBC Morphology Normal, PT 11.2, INR 1.04, Sodium 139, Potassium 5.4 H, Chloride 104, Carbon Dioxide 22, Anion Gap 18.4 H, BUN 49 H, Creatinine 3.60 H, Estimated Creat Clear 44, Estimated GFR 18 L*, Est GFR ( Amer) 21 L, Glucose 116 H, Calcium 9.7, Total Bilirubin 0.5, AST 27, ALT 26, Alkaline Phosphatase 86, Total Protein 9.0 H, Albumin 4.7, Globulin 4.3 H, Albumin/Globulin Ratio 1.1, Procalcitonin 0.227 03/07/24 18:47: Urine Color Yellow, Urine Appearance Clear, Urine pH 6.0, Ur Specific [place] 1.015, Urine Protein Negative, Urine Glucose (UA) Negative, Urine Ketones Negative, Urine Blood 3+, Urine Nitrate Negative, Urine Bilirubin Negative, Urine Urobilinogen 0.2, Ur Leukocyte Esterase Negative, Urine RBC 3-5, Urine WBC None, Ur Squamous Epith Cells None, Urine Bacteria None 03/07/24 18:10 03/07/24 18:10 Orders (Tests/Meds): ED MEDICATIONS Generic Name Dose Route Start Last Admin Trade Name Freq PRN Reason Stop Dose Admin Lactated Ringer's 1,000 mls @ 999 mls/hr 03/07/24 20:42 03/07/24 20:46 Lactated Ringer's 1000 Ml Bag IV 03/07/24 21:42 999 mls/hr .Q1H1M ONE Administration Ceftriaxone Sodium 1 gm/ 50 mls @ 100 mls/hr 03/07/24 21:30 03/07/24 21:28 Sodium Chloride IV 03/17/24 21:29 100 mls/hr Q24H JAZMIN Administration Discontinued Medications Generic Name Dose Route Start Last Admin Trade Name Freq PRN Reason Stop Dose Admin Acetaminophen 1,000 mg 03/07/24 18:33 03/07/24 18:44 Acetaminophen 1,000mg/100ml Vial IV 03/07/24 18:34 1,000 mg ONCE ONE Administration Lactated Ringer's 1,000 mls @ 999 mls/hr 03/07/24 18:33 03/07/24 18:44 Lactated Ringer's 1000 Ml Bag IV 03/07/24 19:33 999 mls/hr .Q1H1M ONE Administration Ketorolac Tromethamine 15 mg 03/07/24 18:33 03/07/24 18:45 Ketorolac 30mg/Ml Vial IV 03/07/24 18:34 15 mg ONCE ONE Administration Oxycodone HCl 5 mg 03/07/24 18:33 03/07/24 18:45 Oxycodone 5mg Immediate Release Tablet PO 03/07/24 18:34 5 mg ONCE ONE Administration Tamsulosin HCl 0.4 mg 03/07/24 18:34 03/07/24 18:45 Tamsulosin 0.4mg Capsule PO 03/07/24 18:35 0.4 mg ONCE ONE Administration ORDERS Category Date Time Status CT abdomen pelvis wo con Stat Cat Scan 03/07/24 19:20 Completed CBC w/Auto Diff [Complete Blood Count Auto Diff] Stat Lab 03/07/24 18:10 Completed CMP [Comprehensive Metabolic Panel] Stat Lab 03/07/24 18:10 Completed INR [Prothrombin Time INR] Stat Lab 03/07/24 18:10 Completed Procalcitonin Stat Lab 03/07/24 18:10 Completed UA [Urinalysis and Microscopic] Stat Lab 03/07/24 18:47 Completed Blood Culture Stat Micro 03/07/24 21:21 Ordered Medical Decision Narrative: In summary patient is a 53-year-old male who presents to the emergency department for evaluation of right flank pain. Patient is hemodynamically stable upon arrival, afebrile. Physical exam is remarkable for CVA tenderness to percussion on the right negative on the left with right lower quadrant/suprapubic pain on palpation. Differential diagnosis includes pyelonephritis versus obstructing stone versus complicated urinary tract infection. Initial workup will be conducted with hematologic labs urinalysis CT scan of the abdomen pelvis with contrast. Initial interventions include Toradol Tylenol crystalloid bolus and oxycodone. Initial workup reviewed by me shows worsening renal function with creatinine approaching 4 and a GFR of 18, elevated white count with left shift, urinalysis that shows red blood cells but no bacteria on microscopic no leukocyte Estrace or nitrates and my informal interpretation of CT scan abdomen pelvis shows right hydronephrosis and hydroureter with at least 1 stone at the UPJ although it appears to be several others upstream of that. Upon repeat evaluation has had some moderate improvement. Given this interactive discussion with Dr. James. He is not currently on-call and will not be back on-call until . He was willing to offer the patient an OR slot on but could not accommodate him any sooner. At that point I had an interactive discussion with the patient regarding his laboratory findings his imaging findings and my recommendations which included transfer for urologic evaluation for stenting of the obstruction. After appropriate time for question and answer via patient directed decision making he agreed to allow me to attempt to transfer him to that facility that can intervene sooner than . Spoke to the emergency [place] transfer center and patient has been accepted by Dr. Hebert for [place] emergency department. Patient has elected to go by private vehicle <Won Graham MD - Last Filed: 03/07/24 21:35> Vital Signs: 03/07/24 17:50 03/07/24 18:08 03/07/24 18:15 Temperature 98.1 F Temperature Source Oral Pulse Rate 111 H 106 H Pulse Rate [Left Radial] 109 H Respiratory Rate 16 Blood Pressure Blood Pressure [Right Arm] 148/103 H Blood Pressure Mean [Right Arm] 118 Blood Pressure Source [Right Arm] Automatic Cuff Blood Pressure Position [Right Arm] Sitting 02 Sat by Pulse Oximetry 99 95 96 Oxygen Delivery Method Room Air 03/07/24 18:30 03/07/24 19:00 Temperature Temperature Source Pulse Rate 105 H 90 Pulse Rate [Left Radial] Respiratory Rate Blood Pressure 111/82 119/75 Blood Pressure [Right Arm] Blood Pressure Mean [Right Arm] Blood Pressure Source [Right Arm] Blood Pressure Position [Right Arm] 02 Sat by Pulse Oximetry 95 96 Oxygen Delivery Method Room Air Room Air Lab Data Lab Results 03/07/24 18:10: WBC 15.8 H, RBC 4.34 L, Hgb 13.3 L, Hct 41.0 L, MCV 94.5 H, MCH 30.8, MCHC 32.6, RDW 13.8, Plt Count 251, MPV 8.4, Neut % (Auto) 76.9, Lymph % (Auto) 11.5, [place] % (Auto) 9.5 H, Eos % (Auto) 1.5, Baso % (Auto) 0.6, Neut # (Auto) 12.2 H, Lymph # (Auto) 1.8, [place] # (Auto) 1.5 H, Eos # (Auto) 0.2, Baso # (Auto) 0.1, Total Counted 100, Neutrophils % (Manual) 77 H, Band Neutrophils % 4.0, Lymphocytes % (Manual) 11, Monocytes % (Manual) 5, Eosinophils % (Manual) 3, Platelet Estimate Normal, RBC Morphology Normal, PT 11.2, INR 1.04, Sodium 139, Potassium 5.4 H, Chloride 104, Carbon Dioxide 22, Anion Gap 18.4 H, BUN 49 H, Creatinine 3.60 H, Estimated Creat Clear 44, Estimated GFR 18 L*, Est GFR ( Amer) 21 L, Glucose 116 H, Calcium 9.7, Total Bilirubin 0.5, AST 27, ALT 26, Alkaline Phosphatase 86, Total Protein 9.0 H, Albumin 4.7, Globulin 4.3 H, Albumin/Globulin Ratio 1.1, Procalcitonin 0.227 03/07/24 18:47: Urine Color Yellow, Urine Appearance Clear, Urine pH 6.0, Ur Specific [place] 1.015, Urine Protein Negative, Urine Glucose (UA) Negative, Urine Ketones Negative, Urine Blood 3+, Urine Nitrate Negative, Urine Bilirubin Negative, Urine Urobilinogen 0.2, Ur Leukocyte Esterase Negative, Urine RBC 3-5, Urine WBC None, Ur Squamous Epith Cells None, Urine Bacteria None Orders (Tests/Meds): ED MEDICATIONS Generic Name Dose Route Start Last Admin Trade Name Freq PRN Reason Stop Dose Admin Lactated Ringer's 1,000 mls @ 999 mls/hr 03/07/24 20:42 03/07/24 20:46 Lactated Ringer's 1000 Ml Bag IV 03/07/24 21:42 999 mls/hr .Q1H1M ONE Administration Ceftriaxone Sodium 1 gm/ 50 mls @ 100 mls/hr 03/07/24 21:30 03/07/24 21:28 Sodium Chloride IV 03/17/24 21:29 100 mls/hr Q24H JAZMIN Administration Discontinued Medications Generic Name Dose Route Start Last Admin Trade Name Freq PRN Reason Stop Dose Admin Acetaminophen 1,000 mg 03/07/24 18:33 03/07/24 18:44 Acetaminophen 1,000mg/100ml Vial IV 03/07/24 18:34 1,000 mg ONCE ONE Administration Lactated Ringer's 1,000 mls @ 999 mls/hr 03/07/24 18:33 03/07/24 18:44 Lactated Ringer's 1000 Ml Bag IV 03/07/24 19:33 999 mls/hr .Q1H1M ONE Administration Ketorolac Tromethamine 15 mg 03/07/24 18:33 03/07/24 18:45 Ketorolac 30mg/Ml Vial IV 03/07/24 18:34 15 mg ONCE ONE Administration Oxycodone HCl 5 mg 03/07/24 18:33 03/07/24 18:45 Oxycodone 5mg Immediate Release Tablet PO 03/07/24 18:34 5 mg ONCE ONE Administration Tamsulosin HCl 0.4 mg 03/07/24 18:34 03/07/24 18:45 Tamsulosin 0.4mg Capsule PO 03/07/24 18:35 0.4 mg ONCE ONE Administration ORDERS Category Date Time Status CT abdomen pelvis wo con Stat Cat Scan 03/07/24 19:20 Completed CBC w/Auto Diff [Complete Blood Count Auto Diff] Stat Lab 03/07/24 18:10 Completed CMP [Comprehensive Metabolic Panel] Stat Lab 03/07/24 18:10 Completed INR [Prothrombin Time INR] Stat Lab 03/07/24 18:10 Completed Procalcitonin Stat Lab 03/07/24 18:10 Completed UA [Urinalysis and Microscopic] Stat Lab 03/07/24 18:47 Completed Blood Culture Stat Micro 03/07/24 21:21 Ordered Medical Decision Narrative: In summary patient is a 53-year-old male who presents to the emergency department for evaluation of right flank pain. Patient is hemodynamically stable upon arrival, afebrile. Physical exam is remarkable for CVA tenderness to percussion on the right negative on the left with right lower quadrant/suprapubic pain on palpation. Differential diagnosis includes pyelonephritis versus obstructing stone versus complicated urinary tract infection. Initial workup will be conducted with hematologic labs urinalysis CT scan of the abdomen pelvis with contrast. Initial interventions include Toradol Tylenol crystalloid bolus and oxycodone. Initial workup reviewed by me shows worsening renal function with creatinine approaching 4 and a GFR of 18, elevated white count with left shift, urinalysis that shows red blood cells but no bacteria on microscopic no leukocyte Estrace or nitrates and my informal interpretation of CT scan abdomen pelvis shows right hydronephrosis and hydroureter with at least 1 stone at the UPJ although it appears to be several others upstream of that. Upon repeat evaluation has had some moderate improvement. Given this interactive discussion with Dr. James. He is not currently on-call and will not be back on-call until . He was willing to offer the patient an OR slot on but could not accommodate him any sooner. At that point I had an interactive discussion with the patient regarding his laboratory findings his imaging findings and my recommendations which included transfer for urologic evaluation for stenting of the obstruction. After appropriate time for question and answer via patient directed decision making he agreed to allow me to attempt to transfer him to that facility that can intervene sooner than . Spoke to the emergency [place] transfer center and patient has been accepted by Dr. Hebert for [place] emergency department. Patient has elected to go by private vehicle I was consulted by the SAMEER, and we discussed the complexity of the problems being addressed. I approved the treatment and management plan for this patient?s care in the Emergency Department, thus performing a substantive portion of the medical decision making. Won Graham MD Critical Care <VENKATA Cornejo - Last Filed: 03/07/24 21:20> Critical Care Time Critical Care Time: No
[2024-03-07 18:08] VITALS: PULSE 111; O2SAT 95
[2024-03-07 18:15] VITALS: PULSE 106; O2SAT 96
[2024-03-07 18:30] VITALS: BP 111/82; PULSE 105; O2SAT 95
[2024-03-07] MEDS: LACTATED RINGERS 1000ML 1,000 ML 999 ML IV ×2 (18:44→20:46)
[2024-03-07] MEDS: ACETAMINOPHEN 1,000MG/100ML VIAL 1000 MG IV (18:44)
[2024-03-07] MEDS: TAMSULOSIN 0.4MG CAPSULE 0.400000000000000022 MG PO (18:45)
[2024-03-07] MEDS: OXYCODONE 5MG IMMEDIATE RELEASE TABLET 5 MG PO (18:45)
[2024-03-07] MEDS: KETOROLAC 30MG/ML VIAL 15 MG IV (18:45)
[2024-03-07 18:50] LABS: Basophils # 0.1 K/mm3 (0-0.2); Basophils % 0.6 % (0.1-2.0); Chloride 104 mmol/L (98-107); Eosinophils # 0.2 K/mm3 (0.0-0.4); Eosinophils % 1.5 % (0.1-12.0); Hemoglobin 13.3 g/dL (14.1-18.0); Lymphocytes # 1.8 K/mm3 (0.7-4.5); Lymphocytes % 11.5 % (10-50); Mean Corpuscular HGB Conc 32.6 g/dL (31.8-35.4); Mean Corpuscular Hemoglobin 30.8 pg (27.0-31.2); Mean Corpuscular Volume 94.5 fl (80-94); Mean Platelet Volume 8.4 fl (7.4-10.4); Monocytes # 1.5 K/mm3 (0.1-1.0); Monocytes % 9.5 % (1.7-9.3); Neutrophils # 12.2 K/mm3 (1.8-7.8); Neutrophils % 76.9 % (37.0-80.0); Platelet Count 251 K/mm3 (142-424); Potassium 5.4 mmoL/L (3.5-5.1); Red Blood Count 4.34 M/mm3 (4.60-6.20); Red Cell Distribution Width 13.8 % (11.5-17.5); Sodium 139 mmol/L (136-145); White Blood Count 15.8 K/mm3 (4.8-10.8)
[2024-03-07 18:52] LABS: Alanine Aminotransferase 26 U/L (12-78); Aspartate Amino Transferase 27 U/L (17-59); Blood Urea Nitrogen 49 mg/dl (9-20); Creatinine Clearance Estimated 44 mL/min (50-200); Estimated Glomerular Filt Rate 18 ml/min (>60); GFR (African American) 21 ML/MIN (>60)
[2024-03-07 18:53] LABS: Albumin Level 4.7 g/dl (3.5-5.0); Albumin/Globulin Ratio 1.1 (1.1-1.8); Alkaline Phosphatase 86 U/L (38-126); Anion Gap 18.4 mEq/L (5-15); Bilirubin,Total 0.5 mg/dl (0.2-1.3); Calcium 9.7 mg/dl (8.4-10.2); Carbon Dioxide 22 mmol/L (22.0-30.0); Globulin 4.3 g/dL (1.3-3.2); Glucose 116 mg/dl (74-100)
[2024-03-07 18:54] LABS: MANUAL DIFFERENTIAL MANUAL DIFFERENTIAL (MANUAL DIFF)
[2024-03-07 18:54] LABS: Microscopic, Urine URINE MICROSCOPIC (MICROSCOPIC)
[2024-03-07 18:55] LABS: INR 1.04 (0.9-1.1); Prothrombin Time 11.2 seconds (10.1-12.5)
[2024-03-07 19:00] VITALS: BP 119/75; PULSE 90; O2SAT 96
[2024-03-07 19:07] LABS: Appearance,Urine CLEAR (Clear); Bilirubin,Urine Negative (Negative); Blood, Urine 3+ (Negative); Color,Urine YELLOW (Yellow); Glucose,Urine (UA) Negative (Negative); Ketones,Urine Negative (Negative); Leukocyte Esterase,Urine Negative (Negative); Nitrate,Urine Negative (Negative); Protein,Urine Negative (Negative); Specific Gravity, Urine 1.015 (1.005-1.030); Urobilinogen,Urine 0.2 EU/dl (0.2)
[2024-03-07 19:11] LABS: Eosinophils % 3 % (0-3); Lymphocytes % 11 % (10-50); Monocytes % 5 % (2-9); Neutrophils % 77 % (42-76); Total Cells Counted 100
[2024-03-07 19:12] LABS: Platelet Estimate Normal; RBC Morphology Normal
--- NOTE | 2024-03-07 19:19 | HMH.ITSTN ---
called ED to notify them of pts GFR being 18. dr. Graham to call back.
--- NOTE | 2024-03-07 19:20 | CT_ITS ---
PROCEDURE INFORMATION: Exam: CT Abdomen And Pelvis Without Contrast Exam date and time: 03/07/2024 7:31 PM Age: 53 years old Clinical indication: Abdominal pain; Additional info: Concern for stone TECHNIQUE: Imaging protocol: Computed tomography of the abdomen and pelvis without contrast. Radiation optimization: All CT scans at this facility use at least one of these dose optimization techniques: automated exposure control; mA and/or kV adjustment per patient size (includes targeted exams where dose is matched to clinical indication); or iterative reconstruction. COMPARISON: CT ABDOMEN PELVIS WO CON 03/02/2024 9:58 AM FINDINGS: Lungs: Dependent bilateral lung base opacities favor atelectasis. Left lung multiple sub 6 mm pulmonary nodules, axial image 7 and axial image 12. Coronary arteries: Moderate calcific atherosclerotic disease of the LAD is present. Liver: There is diffuse hypoattenuation of the liver compatible with mild hepatic steatosis. Gallbladder and bile ducts: Normal. No calcified stones. No ductal dilation. Pancreas: Normal. No ductal dilation. Spleen: Multiple benign-appearing calcific densities of the spleen. Adrenal glands: Normal. No mass. Kidneys and ureters: Moderate right hydronephrosis and hydroureter lead up to a 6.2 mm right UVJ ureterolith with smaller upstream stones present. 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 Stomach and bowel: Unremarkable. No obstruction. No mucosal thickening. Appendix: No evidence of appendicitis. Intraperitoneal space: Unremarkable. No free air. No significant fluid collection. Vasculature: Unremarkable. No abdominal aortic aneurysm. Lymph nodes: Unremarkable. No enlarged lymph nodes. Urinary bladder: Bladder is very distended with air-fluid level which could be related to recent instrumentation versus infectious process. Reproductive: Enlarged prostate measuring 7.7 x 6.8 cm in axial dimension. Bones/joints: Unremarkable. No acute fracture. Soft tissues: Right gluteal subcutaneous surgical clips in place. IMPRESSION: 1. Moderate right hydronephrosis and hydroureter lead up to a 6.2 mm right UVJ ureterolith with smaller upstream stones present. 2. Multiple sub 6 mm pulmonary nodules as described above. For patients at low risk (minimal or absent history of smoking and of other known risk factors), no routine follow-up is indicated. For patients at high risk (history of smoking or of other known risk factors), consider optional CT Chest at 12 months. (Reference: Anastacia) 3. Bladder is very distended with air-fluid level which could be related to recent instrumentation versus infectious process. REFERENCES: Anastacia Ojeda, et al. Guidelines for Management of Incidental Pulmonary Nodules Detected on CT Images: From the Fleischner Society 2017. Radiology. 2017;284(1):228-243.
--- NOTE | 2024-03-07 19:27 | PC.NURSE ---
patient to ct at this time.
[2024-03-07 20:14] LABS: Procalcitonin 0.227 ng/mL (0.0-2.0)
--- NOTE | 2024-03-07 20:17 | PC.NURSE ---
dr horton speaking with jamarcus cifuentes at this time.
--- NOTE | 2024-03-07 21:04 | PC.NURSE ---
Contacted [facility] in regards to transfer contacted radiology to [facility].
--- NOTE | 2024-03-07 21:10 | PC.NURSE ---
[facility] returned call. pa speaking with dr hernandez.
--- NOTE | 2024-03-07 21:18 | PC.NURSE ---
Dr. Hebert accepting at ED
--- NOTE | 2024-03-07 21:23 | PC.NURSE ---
starting abx and transferring pt to [facility]. pt been on abx X1 week. Per Pierre HASTINGS , we dont need ordered blood cultures.
[2024-03-07] MEDS: CEFTRIAXONE SODIUM 1 GM in 0.9 % SODIUM CHLORIDE 50 ML IV (21:28)
[2024-03-07 21:34] VITALS: BP 149/102; PULSE 97; RESP 18; TEMP 36.7; O2SAT 96
--- NOTE | 2024-03-07 21:34 | PC.NURSE ---
report called to [facility] ED charge nurse at this time
== END 2024-03-07 21:38 | disposition short-term general hospital (02) ==
PROVIDERS: Physician Assistant; Emergency Provider Emergency Medicine; PCP Family Medicine
DX: N13.2 Hydronephrosis with renal and ureteral calculous obstruction (principal); N13.8 Other obstructive and reflux uropathy; D72.829 Elevated white blood cell count, unspecified; E87.6 Hypokalemia; I10 Essential (primary) hypertension; Z87.891 Personal history of nicotine dependence
CPT/HCPCS: 74176; 80053; 81001; 84145; 85007; 85025; 85610; 96361; 96374; 96375; 99285; J0131; J0696; J7120

== ENCOUNTER 2024-03-31 10:28 | Emergency (ER) | payer BC, SELFPAY ==
[2024-03-31 10:29] VITALS: BP 119/86; PULSE 123; RESP 16; TEMP 37.3; O2SAT 97; BMI 37.3
--- NOTE | 2024-03-31 10:35 | CT_ITS ---
FINAL REPORT TECHNIQUE: Noncontrast CT exam of the abdomen and pelvis. This study was performed with techniques to keep radiation doses as low as reasonably achievable (ALARA). Individualized dose reduction techniques using automated exposure control or adjustment of mA and/or kV according to the patient''s size were employed. CLINICAL HISTORY: worsened flank pain s/p lithotripsy COMPARISON: 03/07/2024 FINDINGS: Abdomen: Lung bases are clear. Spleen, pancreas and adrenal glands have a normal CT appearance in their limited unenhanced state. There is fatty infiltration of the liver. There is a solitary 2 mm left renal calyceal stone present. No renal stones are seen on the right side. No evidence of hydronephrosis is seen. No obvious renal mass is present. No ureteral stones are present. Pelvis: No distal ureteral stones are seen. There is severe bladder wall thickening, that may represent cystitis. A Wayne catheter is in place and the bladder is decompressed. There is moderate enlargement of the prostate gland. No fluid collection or adenopathy is seen. The appendix is normal in appearance. IMPRESSION: No evidence of renal obstruction is seen. There is a solitary 2 mm left renal calyceal stone present. There is severe bladder wall thickening, that may be secondary to cystitis. Moderate enlargement of the prostate is present. Reviewed, Interpreted and Dictated by Kylie Caceres MD Transcribed by Debra Bacon Authenticated and [facility]
[2024-03-31 10:36] VITALS: BP 119/86; PULSE 129; O2SAT 98
--- NOTE | 2024-03-31 10:38 | PC.NURSE ---
dr zhao at bedside
[2024-03-31] MEDS: LACTATED RINGERS 1000ML 1,000 ML 999 ML IV (10:46)
[2024-03-31] MEDS: MORPHINE 4MG/ML SYRINGE 4 MG IV (10:47)
[2024-03-31] MEDS: ONDANSETRON 4MG/2ML VIAL 4 MG IV (10:47)
[2024-03-31] MEDS: ACETAMINOPHEN 500MG TAB 1000 MG PO (10:47)
[2024-03-31] MEDS: KETOROLAC 30MG/ML VIAL 15 MG IV (10:47)
--- NOTE | 2024-03-31 10:47 | ED_ITS ---
Discharge Plan Disposition Patient Disposition: Home, Self-Care Condition: Good Prescriptions Prescriptions: New ciprofloxacin HCl 500 mg tablet 500 mg PO BID Qty: 20 0RF No Action lisinopril 20 mg tablet PO Patient Comments: TAKE 1 TABLET BY MOUTH EVERY DAY meloxicam 15 mg tablet 15 mg PO DAILY Qty: 30 2RF ibuprofen 800 mg tablet 800 mg PO TID PRN (Reason: pain) 7 Days Qty: 20 0RF ketorolac 10 mg tablet 10 mg PO Q8H PRN (Reason: pain) Qty: 10 0RF oxycodone 5 mg tablet 5 mg PO Q8H PRN (Reason: pain) Qty: 12 0RF ondansetron 4 mg tablet,disintegrating 4 mg PO Q8H PRN (Reason: nausea and vomiting) 4 Days Qty: 12 0RF tamsulosin [Flomax] 0.4 mg capsule 0.4 mg PO DAILY Qty: 7 0RF Referrals Follow up/Referrals: Kylie Gan MD [Primary Care Provider] - See instructions Activity Restrictions/Add. Instructions Additional Instructions/Restrictions: You were evaluated in the emergency department today. You were diagnosed with a urinary tract infection. It was like he has passed a kidney stones. Your kidney function has improved. Please crop picker your prescription for antibiotics and take the full course as prescribed. Follow-up very closely with your primary care provider as well as your urologist. Take Tylenol and ibuprofen at home as needed for pain. Hydrate is much as possible. Return to the emergency department for new or worsening symptoms, such as significant worsening of pain, fever greater than 100.4 ?F, intractable vomiting, or other concerns. Clinical Impressions Clinical Impression: Acute pyelonephritis, Enlarged prostate Stand Alone Forms Stand Alone Forms: Work/School Release Instructions Patient Instructions: How to Care for Your Peres Catheter -- Male, DI for Kidney Infection, DI for Acute Pain -- Adult Discharge ED Provider: Kourtney Ariza General Adult HPI General Chief complaint: PAIN Stated complaint: white blood count elevated R side pain Time Seen by Provider: 03/31/24 10:32 Mode of Arrival: Ambulatory Source of Information: Patient Limitations: No Limitations Description of Symptoms (Recalled from ER Triage Doc. by RN): pt presents to ED from dr gan for left flank pain. pt reports that he does see a urologist of and does have a current peres catheter for urinary retention. symptoms began yesterday History of Present Illness HPI narrative: This patient is a 53-year-old male with a history of ureterolithiasis status post lithotripsy as well as urinary retention with Peres catheter in place presenting to the emergency department for evaluation with concern for severe right flank pain. He initially had obstructive stones on the left and had lithotripsy with Dr. James, then had obstructive stones on the right. He transitioned care to [facility]. He was recently evaluated here 03/07/2024 for similar symptoms and was transferred to [facility] given concerns for obstructive ureterolithiasis on the right, bladder outflow obstruction, and PAULINA. I reviewed records from there and noted that the patient had a Peres catheter placed and was discharged home with Peres catheter in place. He had a voiding trial 2 days ago at [facility], which he failed, so Peres catheter was replaced. They considered stenting during his admission to [facility] at that time, but they deferred and to continue to monitor him on an outpatient basis. He denies any fevers but does report nausea in addition to the severe flank pain. No other concerns noted at this time. He was sent over by his primary care provider who was concerned for lab abnormalities including leukocytosis and elevated creatinine as well as severe pain. Related Data Home Medications Medication Instructions Recorded Confirmed lisinopril 20 mg tablet mg PO 01/24/24 03/06/24 Previous Rx's Medication Instructions Recorded meloxicam 15 mg tablet 15 mg PO DAILY #30 tabs 05/05/23 ibuprofen 800 mg tablet 800 mg PO TID PRN pain 7 days #20 02/11/24 tabs ketorolac 10 mg tablet 10 mg PO Q8H PRN pain #10 tabs 03/02/24 ondansetron 4 mg disintegrating 4 mg PO Q8H PRN nausea and 03/02/24 tablet vomiting 4 days #12 tabs oxycodone 5 mg tablet 5 mg PO Q8H PRN pain #12 tabs 03/02/24 tamsulosin 0.4 mg capsule (Flomax) 0.4 mg PO DAILY #7 caps 03/02/24 ciprofloxacin HCl 500 mg tablet 500 mg PO BID #20 tabs 03/31/24 Allergies Allergy/AdvReac Type Severity Reaction Status Date / Time hydrocodone [HYDROCODONE] Allergy Unknown SEVERE Verified 03/06/24 10:46 HEADACHE PFSH PFS Disclaimer: The information contained in this section may have been updated after the patient was seen, as this information can be updated by other users. Medical History Kidney stone Sleep apnea History of COVID-19 Enlarged prostate Sinus headache Diverticulosis Edema HTN (hypertension), benign Surgical History History of colonoscopy History of ankle surgery History of arthroscopy of both knees Family History Other Cancer Diabetes Social History Smoking Status: Former smoker tobacco type: cigarettes second hand exposure: No alcohol intake: former counseling provided: none substance use type: denies use current occupational status: employed Travel in the last 8 weeks: None household members: spouse housing: house marital status: caffeine: No ROS Obtained: Yes All systems reviewed & no additional complaints except as documented Physical Exam General General appearance: alert and in no apparent distress Comment: Uncomfortable appearing Head Head exam: atraumatic and normocephalic Eye Eye exam: Present normal appearance, PERRL and EOMI ENT ENT exam: Present normal exam, normal oropharynx, mucous membranes moist and normal external ear exam Neck Neck exam: Present normal inspection, full ROM and trachea midline; Absent tenderness Chest Chest inspection: Present normal inspection and symmetric chest wall rise; Absent tenderness Respiratory Respiratory exam: Present normal lung sounds bilaterally; Absent respiratory distress, wheezes, stridor or accessory muscle use Cardiovascular Cardiovascular exam: Present normal rhythm and tachycardia Abdominal Exam Abdominal exam: Present soft; Absent distention, tenderness, guarding, rebound or rigidity exam: Present other (Peres catheter in place) Extremities Exam Extremities exam: Present normal inspection, full ROM and normal capillary refill; Absent tenderness or edema Back Exam Back exam: Present full ROM and CVA tenderness (R) Neurological Exam Neurological exam: Present alert, oriented X3, CN II-XII intact and normal gait; Absent motor sensory deficit Psychiatric Psychiatric exam: Present normal affect and normal mood Skin Skin exam: Present warm and dry Medical Decision Making Medical Records Medical records reviewed: Yes I reviewed the patient's medical records. Holden Inquiry Pt receiving controlled substance: No Vital Signs: 03/31/24 10:29 03/31/24 10:36 03/31/24 12:59 Temperature 99.2 F Temperature Source Oral Pulse Rate 129 H 98 H Pulse Rate [Left Radial] 123 H Respiratory Rate 16 Blood Pressure 119/86 135/76 Blood Pressure [Right Arm] 119/86 Blood Pressure Mean 90 Blood Pressure Mean [Right Arm] 97 Blood Pressure Source Blood Pressure Position 02 Sat by Pulse Oximetry 97 98 95 Oxygen Delivery Method Room Air Room Air Room Air 03/31/24 13:28 Temperature 98.9 F Temperature Source Oral Pulse Rate 98 H Pulse Rate [Left Radial] Respiratory Rate 18 Blood Pressure 141/73 H Blood Pressure [Right Arm] Blood Pressure Mean Blood Pressure Mean [Right Arm] Blood Pressure Source Automatic Cuff Blood Pressure Position Sitting 02 Sat by Pulse Oximetry Oxygen Delivery Method Room Air Lab Data Lab results reviewed: Yes I reviewed the patient's lab results. Lab Results 03/31/24 10:40: WBC 17.3 H, RBC 4.08 L, Hgb 12.6 L, Hct 37.7 L, MCV 92.2, MCH 30.8, MCHC 33.4, RDW 14.0, Plt Count 199, MPV 9.4, Neut % (Auto) 84.5 H, Lymph % (Auto) 7.4 L, [place] % (Auto) 7.5, Eos % (Auto) 0.3, Baso % (Auto) 0.4, Neut # (Auto) 14.6 H, Lymph # (Auto) 1.3, [place] # (Auto) 1.3 H, Eos # (Auto) 0.0, Baso # (Auto) 0.1, Total Counted 100, Neutrophils % (Manual) 83 H, Lymphocytes % (Manual) 14, Monocytes % (Manual) 3, Platelet Estimate Normal, RBC Morphology Normal, Sodium 136, Potassium 4.5, Chloride 100, Carbon Dioxide 26, Anion Gap 14.5, BUN 19, Creatinine 1.30 H, Estimated Creat Clear 121, Estimated GFR 58 L, Est GFR ( Amer) 70, Glucose 121 H, Lactate 1.4, Calcium 9.6, Total Bilirubin 1.1, AST 25, ALT 27, Alkaline Phosphatase 60, Total Protein 8.3 H, Albumin 4.6, Globulin 3.7 H, Albumin/Globulin Ratio 1.2 03/31/24 10:57: Urine Color Yellow, Urine Appearance Clear, Urine pH 6.0, Ur Specific [place] 1.020, Urine Protein 1+, Urine Glucose (UA) Negative, Urine Ketones Negative, Urine Blood 2+, Urine Nitrate Positive, Urine Bilirubin Negative, Urine Urobilinogen 0.2, Ur Leukocyte Esterase 2+ A, Urine RBC 5-10, Urine WBC 20-50, Ur Squamous Epith Cells Occasional, Urine Bacteria 1+ 03/31/24 10:40 03/31/24 10:40 Orders (Tests/Meds): ED MEDICATIONS Discontinued Medications Generic Name Dose Route Start Last Admin Trade Name Freq PRN Reason Stop Dose Admin Acetaminophen 1,000 mg 03/31/24 10:40 03/31/24 10:47 Acetaminophen 500mg Tab PO 03/31/24 10:41 1,000 mg ONCE ONE Administration Lactated Ringer's 1,000 mls @ 999 mls/hr 03/31/24 10:40 03/31/24 10:46 Lactated Ringer's 1000 Ml Bag IV 03/31/24 11:40 999 mls/hr .Q1H1M ONE Administration Ceftriaxone Sodium 2 gm/ 100 mls @ 200 mls/hr 03/31/24 11:49 03/31/24 12:06 Sodium Chloride IV 03/31/24 12:18 200 mls/hr ONCE ONE Administration Ketorolac Tromethamine 15 mg 03/31/24 10:40 03/31/24 10:47 Ketorolac 30mg/Ml Vial IV 03/31/24 10:41 15 mg ONCE ONE Administration Morphine Sulfate 4 mg 03/31/24 10:40 03/31/24 10:47 Morphine 4mg/Ml Syringe IV 03/31/24 10:41 4 mg ONCE ONE Administration Ondansetron HCl 4 mg 03/31/24 10:40 03/31/24 10:47 Ondansetron 4mg/2ml Vial IV 03/31/24 10:41 4 mg ONCE ONE Administration ORDERS Category Date Time Status CT abdomen pelvis wo con Stat Cat Scan 03/31/24 10:35 Completed Complete Blood Count Auto Diff Stat Lab 03/31/24 10:40 Completed Comprehensive Metabolic Panel Stat Lab 03/31/24 10:40 Completed Lactic Acid Stat Lab 03/31/24 10:40 Completed UA [Urinalysis and Microscopic] Stat Lab 03/31/24 10:57 Completed Blood Culture Stat Micro 03/31/24 10:40 Received Urine Culture Stat Micro 03/31/24 10:58 Received Medical Decision Narrative: In summary, this patient is a 53-year-old male presenting to the Emergency Department for evaluation of severe right flank pain and nausea in the setting of obstructive ureteral stone and urinary retention with indwelling Peres. Differential diagnoses considered include but are not limited to cystitis, pyelonephritis, ureterolithiasis, PAULINA, infected stone. Ruling out the most morbid conditions drove assessment. It should be noted patient's history includes obesity and DONNA which may or may not be at goal therapy. This complicates all aspects of care by increasing patient's risk for morbidity. I reviewed patient's past medical records and noted previous evaluations here for similar symptoms and transfer to and most recently at the beginning of March as per HPI. On exam, the patient is uncomfortable appearing. He is mildly tachycardic. Workup included CBC, CMP, lactic acid, urinalysis, blood cultures, urine culture, and CT abdomen pelvis without IV contrast. He was given a bolus of IV fluids as well as IV Toradol, acetaminophen, morphine, and Zofran. I independently interpreted CT scan prior to the radiologist read and noted no obvious ureteral stone. Please see their read for final interpretation. Per radiology, he has findings concerning for urinary tract infection. Labs were obtained that demonstrated leukocytosis but normal lactic acid. Kidney function is improved from prior lab. On reassessment, patient had great improvement after administration of interventions above. He is resting comfortably with reassuring exam. He has reassuring vitals with improvement in his tachycardia after administration of pain control and IV fluids. He was given IV Rocephin with concern for complicated urinary tract infection. Blood cultures and urine culture were sent and are pending. At this time based on improvement in symptoms and reassuring workup and exam, patient was deemed to be appropriate for discharge home with instructions for supportive management of urinary tract infection with indwelling Peres catheter as well as close outpatient follow-up. He was given prescription for ciprofloxacin. I considered exchanging his Peres catheter, however it was just exchanged at as an outpatient after he failed a voiding trial, and he has significantly enlarged prostate. Given this, I feel the risk outweigh the benefit.. Critical Care Critical Care Time Critical Care Time: No
--- NOTE | 2024-03-31 10:53 | PC.NURSE ---
PT TO CT
[2024-03-31 11:01] LABS: Microscopic, Urine URINE MICROSCOPIC (MICROSCOPIC)
--- NOTE | 2024-03-31 11:01 | PC.NURSE ---
PT RETURNED FROM CT
[2024-03-31 11:03] LABS: Lactic Acid 1.4 mmol/L (0.7-2.1)
[2024-03-31 11:05] LABS: Alanine Aminotransferase 27 U/L (12-78); Albumin Level 4.6 g/dl (3.5-5.0); Albumin/Globulin Ratio 1.2 (1.1-1.8); Alkaline Phosphatase 60 U/L (38-126); Anion Gap 14.5 mEq/L (5-15); Aspartate Amino Transferase 25 U/L (17-59); Bilirubin,Total 1.1 mg/dl (0.2-1.3); Blood Urea Nitrogen 19 mg/dl (9-20); Calcium 9.6 mg/dl (8.4-10.2); Carbon Dioxide 26 mmol/L (22.0-30.0); Chloride 100 mmol/L (98-107); Creatinine Clearance Estimated 121 mL/min (50-200); Estimated Glomerular Filt Rate 58 ml/min (>60); GFR (African American) 70 ML/MIN (>60); Globulin 3.7 g/dL (1.3-3.2); Glucose 121 mg/dl (74-100); Potassium 4.5 mmoL/L (3.5-5.1); Sodium 136 mmol/L (136-145); Total Protein,Serum 8.3 g/dl (6.3-8.2)
[2024-03-31 11:19] LABS: Appearance,Urine CLEAR (Clear); Bilirubin,Urine Negative (Negative); Blood, Urine 2+ (Negative); Color,Urine YELLOW (Yellow); Glucose,Urine (UA) Negative (Negative); Ketones,Urine Negative (Negative); Leukocyte Esterase,Urine 2+ (Negative); Nitrate,Urine POSITIVE (Negative); Protein,Urine 1+ (Negative); Urobilinogen,Urine 0.2 EU/dl (0.2)
[2024-03-31 11:40] LABS: Basophils # 0.1 K/mm3 (0-0.2); Basophils % 0.4 % (0.1-2.0); Eosinophils % 0.3 % (0.1-12.0); Hematocrit 37.7 % (42.0-52.0); Hemoglobin 12.6 g/dL (14.1-18.0); Lymphocytes # 1.3 K/mm3 (0.7-4.5); Lymphocytes % 7.4 % (10-50); Mean Corpuscular HGB Conc 33.4 g/dL (31.8-35.4); Mean Corpuscular Hemoglobin 30.8 pg (27.0-31.2); Mean Corpuscular Volume 92.2 fl (80-94); Mean Platelet Volume 9.4 fl (7.4-10.4); Monocytes # 1.3 K/mm3 (0.1-1.0); Monocytes % 7.5 % (1.7-9.3); Neutrophils # 14.6 K/mm3 (1.8-7.8); Neutrophils % 84.5 % (37.0-80.0); Platelet Count 199 K/mm3 (142-424); Red Blood Count 4.08 M/mm3 (4.60-6.20); White Blood Count 17.3 K/mm3 (4.8-10.8)
[2024-03-31 11:42] LABS: MANUAL DIFFERENTIAL MANUAL DIFFERENTIAL (MANUAL DIFF)
[2024-03-31] MEDS: CEFTRIAXONE SODIUM 2 GM in 0.9 % SODIUM CHLORIDE 100 ML IV (12:06)
[2024-03-31 12:13] LABS: Bacteria,Urine 1+ /lpf; Squamous Epithelial Cell,Urine Occasional #/hpf (0-5); WBC,Urine 20-50 #/hpf (0-3)
--- NOTE | 2024-03-31 12:15 | PC.NURSE ---
Called dietary to order a patient lunch
[2024-03-31 12:59] VITALS: BP 135/76; PULSE 98; O2SAT 95
--- NOTE | 2024-03-31 13:24 | PC.NURSE ---
DR TSE AT BEDSIDE TO UPDATE PT
[2024-03-31 13:28] VITALS: BP 141/73; PULSE 98; RESP 18; TEMP 37.2; O2SAT 95
[2024-03-31 13:55] LABS: Lymphocytes % 14 % (10-50); Monocytes % 3 % (2-9); Neutrophils % 83 % (42-76); Platelet Estimate Normal; RBC Morphology Normal; Total Cells Counted 100
== END 2024-03-31 13:35 | disposition home or self-care (01) ==
PROVIDERS: Emergency Provider Emergency Medicine; PCP Family Medicine
DX: N10 Acute pyelonephritis (principal); B95.2 Enterococcus as the cause of diseases classified elsewhere; R10.31 Right lower quadrant pain; M54.59 Other low back pain; R00.0 Tachycardia, unspecified; N40.0 Benign prostatic hyperplasia without lower urinary tract symptoms; I10 Essential (primary) hypertension; Z96.0 Presence of urogenital implants; Z87.442 Personal history of urinary calculi
CPT/HCPCS: 74176; 80053; 81001; 83605; 85007; 85025; 85027; 87040; 87086; 87088; 87186; 96361; 96365; 96375; 99285; J0696; J1885; J2270; J2405; J7120

== ENCOUNTER 2024-05-11 21:15 | Emergency (ER) | payer BC, SELFPAY ==
[2024-05-11 21:17] VITALS: BP 151/99; PULSE 89; RESP 16; TEMP 37.2; O2SAT 97; BMI 32.1
[2024-05-11 21:30] VITALS: BP 137/90; PULSE 87
[2024-05-11 21:48] LABS: Microscopic, Urine URINE MICROSCOPIC (MICROSCOPIC)
[2024-05-11 21:50] LABS: Basophils # 0.1 K/mm3 (0-0.2); Basophils % 0.9 % (0.1-2.0); Eosinophils # 0.1 K/mm3 (0.0-0.4); Eosinophils % 1.5 % (0.1-12.0); Hematocrit 38.7 % (42.0-52.0); Hemoglobin 12.6 g/dL (14.1-18.0); Lymphocytes # 2.5 K/mm3 (0.7-4.5); Lymphocytes % 26.7 % (10-50); Mean Corpuscular HGB Conc 32.6 g/dL (31.8-35.4); Mean Corpuscular Hemoglobin 30.1 pg (27.0-31.2); Mean Corpuscular Volume 92.4 fl (80-94); Mean Platelet Volume 8.7 fl (7.4-10.4); Monocytes # 0.8 K/mm3 (0.1-1.0); Monocytes % 8.1 % (1.7-9.3); Neutrophils # 5.9 K/mm3 (1.8-7.8); Neutrophils % 62.6 % (37.0-80.0); Platelet Count 230 K/mm3 (142-424); Red Blood Count 4.19 M/mm3 (4.60-6.20); Red Cell Distribution Width 15.3 % (11.5-17.5); White Blood Count 9.4 K/mm3 (4.8-10.8)
--- NOTE | 2024-05-11 21:50 | HMH.EDGENADL ---
Discharge Plan Disposition Patient Disposition: Home, Self-Care Condition: Good Prescriptions Prescriptions: No Action lisinopril 20 mg tablet PO Patient Comments: TAKE 1 TABLET BY MOUTH EVERY DAY meloxicam 15 mg tablet 15 mg PO DAILY Qty: 30 2RF ciprofloxacin HCl 500 mg tablet 500 mg PO BID Qty: 20 0RF ibuprofen 800 mg tablet 800 mg PO TID PRN (Reason: pain) 7 Days Qty: 20 0RF ketorolac 10 mg tablet 10 mg PO Q8H PRN (Reason: pain) Qty: 10 0RF oxycodone 5 mg tablet 5 mg PO Q8H PRN (Reason: pain) Qty: 12 0RF ondansetron 4 mg tablet,disintegrating 4 mg PO Q8H PRN (Reason: nausea and vomiting) 4 Days Qty: 12 0RF tamsulosin [Flomax] 0.4 mg capsule 0.4 mg PO DAILY Qty: 7 0RF Referrals Follow up/Referrals: Dipak Gan MD [Primary Care Provider] - See instructions Activity Restrictions/Add. Instructions Additional Instructions/Restrictions: You were evaluated in the emergency department today. Please follow-up very closely with your urologist. We are following up your urine culture and we will let you know if anything comes back resistant to the levaquin you are on, however your labs are stable. Make sure that you stay hydrated. Return to the emergency department for new or worsening symptoms. Clinical Impressions Clinical Impression: Hematuria, Wayne catheter problem Instructions Patient Instructions: How to Care for Your Wayne Catheter -- Male, DI for Hematuria Print Language Print Language: Citizen Of [place] Discharge ED Provider: Kourtney Ariza General Adult HPI General Chief complaint: Abdominal Pain Stated complaint: poss UTI ,feels bad Time Seen by Provider: 05/11/24 21:27 Mode of Arrival: Ambulatory Source of Information: Patient Limitations: No Limitations Description of Symptoms (Recalled from ER Triage Doc. by RN): Blood in urine History of Present Illness HPI narrative: This patient is a 53-year-old male with a history of recurrent ureterolithiasis and urinary outflow obstruction with chronic indwelling Wayne catheter as well as hypertension and DONNA presenting to the emergency department for evaluation with concern for blood in his urine. Patient has been evaluated here multiple times over the last several months for urinary tract issues, including kidney stones, urinary retention, and other concerns. He has seen urology at [facility], and is now awaiting an appointment with Dr. Villegas here. He notes that he had his Wayne catheter exchanged Wednesday 2 days ago at , and today he has had increase in blood in his urine. He also states that he just does not feel well. He denies any specific fevers, chills, nausea, vomiting, or other concerns. He is currently on Levaquin for UTI. Related Data Home Medications ?Medication ?Instructions ?Recorded ?Confirmed lisinopril 20 mg tablet mg PO 01/24/24 03/06/24 Previous Rx's ?Medication ?Instructions ?Recorded meloxicam 15 mg tablet 15 mg PO DAILY #30 tabs 05/05/23 ibuprofen 800 mg tablet 800 mg PO TID PRN pain 7 days #20 02/11/24 tabs ketorolac 10 mg tablet 10 mg PO Q8H PRN pain #10 tabs 03/02/24 ondansetron 4 mg disintegrating 4 mg PO Q8H PRN nausea and 03/02/24 tablet vomiting 4 days #12 tabs oxycodone 5 mg tablet 5 mg PO Q8H PRN pain #12 tabs 03/02/24 tamsulosin 0.4 mg capsule (Flomax) 0.4 mg PO DAILY #7 caps 03/02/24 ciprofloxacin HCl 500 mg tablet 500 mg PO BID #20 tabs 03/31/24 Allergies Allergy/AdvReac Type Severity Reaction Status Date / Time hydrocodone [HYDROCODONE] Allergy Unknown SEVERE Verified 03/06/24 10:46 HEADACHE PFSH PFSH Disclaimer: The information contained in this section may have been updated after the patient was seen, as this information can be updated by other users. Medical History Kidney stone Sleep apnea History of COVID-19 Enlarged prostate Sinus headache Diverticulosis Edema HTN (hypertension), benign Surgical History History of colonoscopy History of ankle surgery History of arthroscopy of both knees Family History Other Cancer Diabetes Social History Smoking Status: Never smoker second hand exposure: No alcohol intake: former counseling provided: none substance use type: denies use current occupational status: employed Travel in the last 8 weeks: None household members: spouse housing: house marital status: caffeine: No ROS Obtained: Yes All systems reviewed & no additional complaints except as documented Physical Exam General General appearance: alert and in no apparent distress Head Head exam: atraumatic and normocephalic Eye Eye exam: Present normal appearance, PERRL and EOMI ENT ENT exam: Present normal exam, normal oropharynx, mucous membranes moist and normal external ear exam Neck Neck exam: Present normal inspection, full ROM and trachea midline; Absent tenderness Chest Chest inspection: Present normal inspection and symmetric chest wall rise; Absent tenderness Respiratory Respiratory exam: Present normal lung sounds bilaterally; Absent respiratory distress, wheezes, stridor or accessory muscle use Cardiovascular Cardiovascular exam: Present regular rate and normal rhythm Abdominal Exam Abdominal exam: Present soft; Absent distention, tenderness or guarding Extremities Exam Extremities exam: Present normal inspection, full ROM and normal capillary refill; Absent tenderness or edema Back Exam Back exam: Present normal inspection and full ROM; Absent tenderness Neurological Exam Neurological exam: Present alert, oriented X3, CN II-XII intact and normal gait; Absent motor sensory deficit Psychiatric Psychiatric exam: Present normal affect and normal mood Skin Skin exam: Present warm and dry Medical Decision Making Medical Records Medical records reviewed: Yes I reviewed the patient's medical records. Holden Gordon Pt receiving controlled substance: No Vital Signs: 05/11/24 21:17 05/11/24 21:30 05/11/24 22:00 Temperature 98.9 F Temperature Source Oral Pulse Rate 87 84 Pulse Rate [Left] 89 Respiratory Rate 16 Blood Pressure 137/90 141/95 H Blood Pressure [Right Arm] 151/99 H Blood Pressure Mean 105 103 Blood Pressure Mean [Right Arm] 116 Blood Pressure Source Blood Pressure Source [Right Arm] Automatic Cuff Blood Pressure Position Blood Pressure Position [Right Arm] Sitting 02 Sat by Pulse Oximetry 97 95 Oxygen Delivery Method Room Air 05/11/24 22:30 05/11/24 23:04 Temperature 98.9 F Temperature Source Oral Pulse Rate 82 74 Pulse Rate [Left] Respiratory Rate 18 16 Blood Pressure 128/80 143/89 H Blood Pressure [Right Arm] Blood Pressure Mean 100 Blood Pressure Mean [Right Arm] Blood Pressure Source Automatic Cuff Blood Pressure Source [Right Arm] Blood Pressure Position Sitting Blood Pressure Position [Right Arm] 02 Sat by Pulse Oximetry 94 L Oxygen Delivery Method Lab Data Lab results reviewed: Yes I reviewed the patient's lab results. Lab Results 05/11/24 21:37: WBC 9.4, RBC 4.19 L, Hgb 12.6 L, Hct 38.7 L, MCV 92.4, MCH 30.1, MCHC 32.6, RDW 15.3, Plt Count 230, MPV 8.7, Neut % (Auto) 62.6, Lymph % (Auto) 26.7, [place] % (Auto) 8.1, Eos % (Auto) 1.5, Baso % (Auto) 0.9, Neut # (Auto) 5.9, Lymph # (Auto) 2.5, [place] # (Auto) 0.8, Eos # (Auto) 0.1, Baso # (Auto) 0.1, Sodium 142, Potassium 3.8, Chloride 110 H, Carbon Dioxide 23, Anion Gap 12.8, BUN 24 H, Creatinine 1.30 H, Estimated Creat Clear 104, Estimated GFR 58 L, Est GFR ( Amer) 70, Glucose 107 H, Calcium 8.7, Total Bilirubin 0.5, AST 37, ALT 37, Alkaline Phosphatase 93, Total Protein 7.9, Albumin 4.6, Globulin 3.3 H, Albumin/Globulin Ratio 1.4, Urine Color Yellow, Urine Appearance Clear, Urine pH 6.0, Ur Specific [place] >= 1.030, Urine Protein 2+, Urine Glucose (UA) Negative, Urine Ketones Negative, Urine Blood 3+, Urine Nitrate Positive, Urine Bilirubin Negative, Urine Urobilinogen 0.2, Ur Leukocyte Esterase Trace, Urine RBC Tntc, Urine WBC 20-50, Ur Squamous Epith Cells 3-5, Urine Bacteria 3+ 05/11/24 21:37 05/11/24 21:37 Orders (Tests/Meds): ORDERS Category Date Time Status CBC w/Auto Diff [Complete Blood Count Auto Diff] Stat Lab 05/11/24 21:37 Completed CMP [Comprehensive Metabolic Panel] Stat Lab 05/11/24 21:37 Completed UA [Urinalysis and Microscopic] Stat Lab 05/11/24 21:37 Completed Urine Culture Stat Micro 05/11/24 21:37 Received Medical Decision Narrative: In summary, this patient is a 53-year-old male presenting to the Emergency Department for evaluation of blood in his urine and generally feeling unwell. Differential diagnoses considered include but are not limited to cystitis, pyelonephritis, benign hematuria, prostatitis, PAULINA. Ruling out the most morbid conditions drove assessment. It should be noted patient's history includes recurrent urinary tract issues as well as hypertension which are not at goal therapy. This complicates all aspects of care by increasing patient's risk for morbidity. I reviewed patient's past medical records and noted previous evaluations for urinary tract issues as per HPI. On exam, the patient is lying in bed in no acute distress with reassuring abdominal exam and normal vitals on cardiac telemetry with the exception of hypertension. Workup included CBC, CMP, urinalysis, urine culture. On reassessment, the patient is resting comfortably with normal vital signs on cardiac telemetry. He remains afebrile. Urinalysis demonstrates positive nitrates and leukocyte esterase as well as blood, but he has had this chronically in the past and has had negative culture at most recently 2 days ago. I ordered a repeat culture today and we will follow this up to see if he potentially need to be changed from Levaquin to another antibiotic, however plan for right now will be to continue Levaquin. Leukocytosis from previous labs has improved, and his kidney function is around his baseline. Ultimately, I feel it is appropriate for discharge home with plans for supportive management, continue Levaquin, and close follow-up with urology. Strict return precautions were given Critical Care Critical Care Time Critical Care Time: No
[2024-05-11 21:51] LABS: Appearance,Urine CLEAR (Clear); Blood, Urine 3+ (Negative); Color,Urine YELLOW (Yellow); Glucose,Urine (UA) Negative (Negative); Ketones,Urine Negative (Negative); Leukocyte Esterase,Urine TRACE (Negative); Nitrate,Urine POSITIVE (Negative); Protein,Urine 2+ (Negative); Specific Gravity, Urine >= 1.030 (1.005-1.030); Urobilinogen,Urine 0.2 EU/dl (0.2)
[2024-05-11 21:52] LABS: Albumin Level 4.6 g/dl (3.5-5.0); Chloride 110 mmol/L (98-107); Potassium 3.8 mmoL/L (3.5-5.1); Sodium 142 mmol/L (136-145)
[2024-05-11 21:54] LABS: Blood Urea Nitrogen 24 mg/dl (9-20); Creatinine Clearance Estimated 104 mL/min (50-200); Estimated Glomerular Filt Rate 58 ml/min (>60); GFR (African American) 70 ML/MIN (>60)
[2024-05-11 21:55] LABS: Alanine Aminotransferase 37 U/L (12-78); Albumin/Globulin Ratio 1.4 (1.1-1.8); Alkaline Phosphatase 93 U/L (38-126); Anion Gap 12.8 mEq/L (5-15); Aspartate Amino Transferase 37 U/L (17-59); Bilirubin,Total 0.5 mg/dl (0.2-1.3); Calcium 8.7 mg/dl (8.4-10.2); Carbon Dioxide 23 mmol/L (22.0-30.0); Globulin 3.3 g/dL (1.3-3.2); Glucose 107 mg/dl (74-100); Total Protein,Serum 7.9 g/dl (6.3-8.2)
[2024-05-11 22:00] VITALS: BP 141/95; PULSE 84; O2SAT 95
[2024-05-11 22:08] LABS: Bilirubin,Urine Negative (Negative)
[2024-05-11 22:18] LABS: RBC,Urine TNTC #/hpf (0-3)
[2024-05-11 22:19] LABS: Bacteria,Urine 3+ /lpf; WBC,Urine 20-50 #/hpf (0-3)
[2024-05-11 22:30] VITALS: BP 128/80; PULSE 82; RESP 18; O2SAT 94
[2024-05-11 23:04] VITALS: BP 143/89; PULSE 74; RESP 16; TEMP 37.2; O2SAT 99
== END 2024-05-11 23:11 | disposition home or self-care (01) ==
PROVIDERS: Emergency Provider Emergency Medicine; PCP Psychiatry & Neurology Sleep Medicine
DX: R31.9 Hematuria, unspecified (principal); T83.091A Other mechanical complication of indwelling urethral catheter, initial encounter; B96.89 Other specified bacterial agents as the cause of diseases classified elsewhere; R53.81 Other malaise; I10 Essential (primary) hypertension; Z87.442 Personal history of urinary calculi
CPT/HCPCS: 80053; 81001; 85025; 87086; 99283

== ENCOUNTER 2024-05-15 16:16 | Outpatient (CLI) | payer BC, SELFPAY | END 2024-05-15 23:59 | disposition home or self-care (01) | LOC: LAB.DROPOF 16:17 | PROVIDERS: PCP Urology; Visit Provider Urology | DX: R33.9 Retention of urine, unspecified (principal); R31.9 Hematuria, unspecified | CPT/HCPCS: 87086; 87088; 87186 ==

== ENCOUNTER 2024-07-02 15:32 | Emergency (ER) | payer BC, SELFPAY ==
[2024-07-02 15:34] VITALS: BP 138/90; PULSE 95; RESP 16; TEMP 36.5; O2SAT 98; BMI 39.5
--- NOTE | 2024-07-02 15:35 | HMH.EDGENADL ---
Discharge Plan Disposition Patient Disposition: Home, Self-Care Condition: Good Prescriptions Prescriptions: No Action lisinopril 20 mg tablet PO Patient Comments: TAKE 1 TABLET BY MOUTH EVERY DAY meloxicam 15 mg tablet 15 mg PO DAILY Qty: 30 2RF tamsulosin [Flomax] 0.4 mg capsule 0.4 mg PO DAILY 90 Days Qty: 90 0RF finasteride [Proscar] 5 mg tablet 5 mg PO DAILY Qty: 90 3RF ibuprofen 800 mg tablet 800 mg PO TID PRN (Reason: pain) 7 Days Qty: 20 0RF ketorolac 10 mg tablet 10 mg PO Q8H PRN (Reason: pain) Qty: 10 0RF oxycodone 5 mg tablet 5 mg PO Q8H PRN (Reason: pain) Qty: 12 0RF ondansetron 4 mg tablet,disintegrating 4 mg PO Q8H PRN (Reason: nausea and vomiting) 4 Days Qty: 12 0RF Referrals Follow up/Referrals: Kylie Gan MD [Primary Care Provider] - See instructions Activity Restrictions/Add. Instructions Additional Instructions/Restrictions: Follow-up with urology as scheduled. Return to ER for any worsening signs or symptoms as needed. Clinical Impressions Clinical Impression: Complication, blocked Wayne catheter Qualifiers: Encounter type: initial encounter Qualified Code(s): T83.091A - Other mechanical complication of indwelling urethral catheter, initial encounter Print Language Print Language: Belgian Discharge ED Provider: Won Graham General Adult HPI <VENKATA Cornejo - Last Filed: 07/02/24 17:43> General Chief complaint: Recheck/Abnormal Lab/Rx Stated complaint: F/C is blocked and pt has to pee Time Seen by Provider: 07/02/24 15:35 History of Present Illness HPI narrative: Patient presents for evaluation of a indwelling Wayne problem. Patient has indwelling Wayne due to BPH. He follows with urology. Patient states that his last urine came out sometime this morning before 10 AM. In the past they have had to exchange his Wayne catheter at the urology clinic. He reports increasing lower abdominal pain and discomfort but no fever chills hemoptysis hematochezia melena hematemesis. Related Data Home Medications ?Medication ?Instructions ?Recorded ?Confirmed lisinopril 20 mg tablet mg PO 01/24/24 03/06/24 Previous Rx's ?Medication ?Instructions ?Recorded meloxicam 15 mg tablet 15 mg PO DAILY #30 tabs 05/05/23 ibuprofen 800 mg tablet 800 mg PO TID PRN pain 7 days #20 02/11/24 tabs ketorolac 10 mg tablet 10 mg PO Q8H PRN pain #10 tabs 03/02/24 ondansetron 4 mg disintegrating 4 mg PO Q8H PRN nausea and 03/02/24 tablet vomiting 4 days #12 tabs oxycodone 5 mg tablet 5 mg PO Q8H PRN pain #12 tabs 03/02/24 finasteride 5 mg tablet (Proscar) 5 mg PO DAILY #90 tabs 05/15/24 tamsulosin 0.4 mg capsule (Flomax) 0.4 mg PO DAILY 90 days #90 caps 05/15/24 Allergies Allergy/AdvReac Type Severity Reaction Status Date / Time hydrocodone [HYDROCODONE] Allergy Unknown SEVERE Verified 05/15/24 10:43 HEADACHE PFSH <VENKATA Cornejo - Last Filed: 07/02/24 17:43> PFSH Disclaimer: The information contained in this section may have been updated after the patient was seen, as this information can be updated by other users. Medical History Kidney stone Sleep apnea History of COVID-19 Enlarged prostate Sinus headache Diverticulosis Edema HTN (hypertension), benign Surgical History History of colonoscopy History of ankle surgery LEFT History of arthroscopy of both knees Family History Other Cancer Diabetes Social History Smoking Status: Never smoker second hand exposure: No alcohol intake: former counseling provided: none substance use type: denies use current occupational status: employed Travel in the last 8 weeks: None household members: spouse housing: house marital status: caffeine: No <VENKATA Cornejo - Last Filed: 07/02/24 17:43> ROS Obtained: Yes Systems reviewed as appropriate & no additional complaints except as documented Physical Exam <VENKATA Cornejo - Last Filed: 07/02/24 17:43> General General appearance: alert and in no apparent distress Respiratory Respiratory exam: Present normal lung sounds bilaterally Cardiovascular Cardiovascular exam: Present regular rate Neurological Exam Neurological exam: Present alert and oriented X3 Medical Decision Making <VENKATA Cornejo - Last Filed: 07/02/24 17:43> Medical Records Screening: Per USPSTF and CDC recommendations, given the prevalence of disease in our region, it is our hospital?s policy to screen for HIV and viral Hepatitis for all patients aged 18 and over and those with ongoing risk factors. Holden Inquiry Pt receiving controlled substance: No Vital Signs: 07/02/24 15:34 07/02/24 16:22 Temperature 97.7 F 98.0 F Temperature Source Oral Pulse Rate 93 H Pulse Rate [Left Radial] 95 H Respiratory Rate 16 16 Blood Pressure 138/90 Blood Pressure [Right Arm] 138/90 Blood Pressure Mean [Right Arm] 106 02 Sat by Pulse Oximetry 98 Oxygen Delivery Method Room Air Lab Data Lab results reviewed: Yes I reviewed the patient's lab results. Medical Decision Narrative: In summary patient is a 54-year-old male who presents to the emergency department for evaluation of Wayne catheter malfunction. Patient is hemodynamically stable upon arrival, afebrile. Physical exam is remarkable for tenderness to palpation in suprapubic area without rebound or guarding or rigidity.. Differential diagnosis includes malposition Wayne catheter versus clogged Wayne catheter. Initial workup will be conducted with attempt to flush Wayne catheter. Initial interventions include attempted flush Wayne catheter. Initial workup reviewed by me shows I can either aspirate nor irrigate Wayne catheter. Given this I did a Wayne catheter exchange personally with a 16 Frisian coud? tip catheter. Was able to pass into the bladder on the first attempt with immediate bladder draining a 500 cc. I replaced the patient's valve on the end of the Wayne catheter so that he can self drain. Patient follow-up with urology as scheduled. <Won Graham MD - Last Filed: 07/02/24 19:19> Vital Signs: 07/02/24 15:34 07/02/24 16:22 Temperature 97.7 F 98.0 F Temperature Source Oral Pulse Rate 93 H Pulse Rate [Left Radial] 95 H Respiratory Rate 16 16 Blood Pressure 138/90 Blood Pressure [Right Arm] 138/90 Blood Pressure Mean [Right Arm] 106 02 Sat by Pulse Oximetry 98 Oxygen Delivery Method Room Air Medical Decision Narrative: In summary patient is a 54-year-old male who presents to the emergency department for evaluation of Wayne catheter malfunction. Patient is hemodynamically stable upon arrival, afebrile. Physical exam is remarkable for tenderness to palpation in suprapubic area without rebound or guarding or rigidity.. Differential diagnosis includes malposition Wayne catheter versus clogged Wayne catheter. Initial workup will be conducted with attempt to flush Wayne catheter. Initial interventions include attempted flush Wayne catheter. Initial workup reviewed by me shows I can either aspirate nor irrigate Wayne catheter. Given this I did a Wayne catheter exchange personally with a 16 [place]isian coud? tip catheter. Was able to pass into the bladder on the first attempt with immediate bladder draining a 500 cc. I replaced the patient's valve on the end of the Wayne catheter so that he can self drain. Patient follow-up with urology as scheduled. I was consulted by the SAMEER, and we discussed the complexity of the problems being addressed. I approved the treatment and management plan for this patient's care in the Emergency Department, thus performing a substantive portion of the medical decision making. Won Graham MD Critical Care <VENKATA Cornejo - Last Filed: 07/02/24 17:43> Critical Care Time Critical Care Time: No
[2024-07-02 16:22] VITALS: BP 138/90; PULSE 93; RESP 16; TEMP 36.7; O2SAT 98
== END 2024-07-02 16:23 | disposition home or self-care (01) ==
PROVIDERS: Emergency Provider Emergency Medicine; PCP Family Medicine
DX: T83.091A Other mechanical complication of indwelling urethral catheter, initial encounter (principal); R10.30 Lower abdominal pain, unspecified
CPT/HCPCS: 51702; 99283

== ENCOUNTER 2024-07-17 10:19 | Emergency (ER) | payer BC, SELFPAY ==
[2024-07-17 10:33] VITALS: BP 150/102; PULSE 107; RESP 18; TEMP 36.3; O2SAT 97; BMI 39.2
--- NOTE | 2024-07-17 10:33 | PC.NURSE ---
dr lynch at bedside
[2024-07-17 11:00] VITALS: BP 144/81; PULSE 94; O2SAT 94
--- NOTE | 2024-07-17 11:09 | ED_ITS ---
Discharge Plan Disposition Patient Disposition: Home, Self-Care Prescriptions Prescriptions: New cefdinir 300 mg capsule 300 mg PO BID 10 Days Qty: 20 0RF No Action lisinopril 20 mg tablet PO Patient Comments: TAKE 1 TABLET BY MOUTH EVERY DAY meloxicam 15 mg tablet 15 mg PO DAILY Qty: 30 2RF tamsulosin [Flomax] 0.4 mg capsule 0.4 mg PO DAILY 90 Days Qty: 90 0RF finasteride [Proscar] 5 mg tablet 5 mg PO DAILY Qty: 90 3RF ibuprofen 800 mg tablet 800 mg PO TID PRN (Reason: pain) 7 Days Qty: 20 0RF ketorolac 10 mg tablet 10 mg PO Q8H PRN (Reason: pain) Qty: 10 0RF oxycodone 5 mg tablet 5 mg PO Q8H PRN (Reason: pain) Qty: 12 0RF ondansetron 4 mg tablet,disintegrating 4 mg PO Q8H PRN (Reason: nausea and vomiting) 4 Days Qty: 12 0RF Referrals Follow up/Referrals: Kylie Gan MD [Primary Care Provider] - See instructions Activity Restrictions/Add. Instructions Additional Instructions/Restrictions: As discussed please make a follow-up appointment with Dr. York in 3 to 4 weeks. If you have recurrence of your symptoms you may go to any emergency department for a catheter insertion. Clinical Impressions Clinical Impression: Wayne catheter problem, Acute UTI, Acute urinary retention, Prostate hypertrophy Instructions Patient Instructions: DI for Urinary Tract Infection (UTI), DI for Urinary Tract Infection in Children Print Language Print Language: Guamanian Discharge ED Provider: Carolin Staples General Adult [facility] General Chief complaint: Urogenital-Male Stated complaint: catheter stopped up Time Seen by Provider: 07/17/24 10:33 Mode of Arrival: Ambulatory Source of Information: Patient Limitations: No Limitations Description of Symptoms (Recalled from ER Triage Doc. by RN): pt c/o decreased flow from his urinary catheter over the past week getting increasingly worse. pt states he has penile pain that is 3/10 and pressure. pt reports he had bilateral kidney stones and had surgery earlier this year. pt states this catheter was placed on 03/04/24, pt reports seeing multiple urologists that have no plan for his care, he reports being extremely upset with the whole situation. pt also reports having a large prostate. pt states he is extremely frustrated and would like the catheter removed. History of Present Illness HPI narrative: Patient is a 54-year-old male presented today with Wayne catheter related problems. States that for 5 months he has been having issues with urination. This all started when he had a kidney stone that was intervened upon by Dr. Erika martin send urinary retention secondary to his prostate hypertrophy he has been on finasteride as well as Flomax without any significant improvement. Has followed up with but states he has not had any voiding trial in extended period of time. Presents today feeling though his Wayne catheter is obstructed he is even having some fluid that is going around it. No fevers or chills or any other symptoms. Has not had his kidney function checked in months and states that he did have renal insufficiency in the past. Related Data Home Medications ?Medication ?Instructions ?Recorded ?Confirmed lisinopril 20 mg tablet mg PO 01/24/24 03/06/24 Previous Rx's ?Medication ?Instructions ?Recorded meloxicam 15 mg tablet 15 mg PO DAILY #30 tabs 05/05/23 ibuprofen 800 mg tablet 800 mg PO TID PRN pain 7 days #20 02/11/24 tabs ketorolac 10 mg tablet 10 mg PO Q8H PRN pain #10 tabs 03/02/24 ondansetron 4 mg disintegrating 4 mg PO Q8H PRN nausea and 03/02/24 tablet vomiting 4 days #12 tabs oxycodone 5 mg tablet 5 mg PO Q8H PRN pain #12 tabs 03/02/24 finasteride 5 mg tablet (Proscar) 5 mg PO DAILY #90 tabs 05/15/24 tamsulosin 0.4 mg capsule (Flomax) 0.4 mg PO DAILY 90 days #90 caps 05/15/24 cefdinir 300 mg capsule 300 mg PO BID 10 days #20 caps 07/17/24 Allergies Allergy/AdvReac Type Severity Reaction Status Date / Time hydrocodone [HYDROCODONE] Allergy Unknown SEVERE Verified 07/17/24 10:44 HEADACHE PFSH [facility] Disclaimer: The information contained in this section may have been updated after the patient was seen, as this information can be updated by other users. Medical History Kidney stone Sleep apnea History of COVID-19 Enlarged prostate Sinus headache Diverticulosis Edema HTN (hypertension), benign Surgical History History of colonoscopy History of ankle surgery LEFT History of arthroscopy of both knees Family History Other Cancer Diabetes Social History Smoking Status: Former smoker tobacco type: cigarettes second hand exposure: No alcohol intake: former counseling provided: none substance use type: denies use current occupational status: employed Travel in the last 8 weeks: None household members: spouse housing: house marital status: caffeine: No Other Medical History Have you received the Flu Vaccine for this season: No Have you received the Pneumonia Vaccine: No ROS Obtained: Yes All systems reviewed & no additional complaints except as documented Physical Exam General General appearance: alert Respiratory Respiratory exam: Present normal lung sounds bilaterally and respiratory distress Cardiovascular Cardiovascular exam: Present regular rate and normal rhythm Neurological Exam Neurological exam: Present alert and oriented X3 Medical Decision Making Medical Records Screening: Per USPSTF and CDC recommendations, given the prevalence of disease in our region, it is our hospital?s policy to screen for HIV and viral Hepatitis for all patients aged 18 and over and those with ongoing risk factors. Holden Inquiry Pt receiving controlled substance: No Vital Signs: 07/17/24 10:33 07/17/24 11:00 07/17/24 11:26 Temperature 97.4 F L Temperature Source Oral Pulse Rate 94 H 96 H Pulse Rate [Left] 107 H Respiratory Rate 18 Blood Pressure 144/81 H 150/85 H Blood Pressure [Right Arm] 150/102 H Blood Pressure Mean Blood Pressure Mean [Right Arm] 118 Blood Pressure Source [Right Arm] Automatic Cuff Blood Pressure Position [Right Arm] Sitting 02 Sat by Pulse Oximetry 97 94 L 94 L Oxygen Delivery Method Room Air Room Air Room Air 07/17/24 11:30 07/17/24 12:00 Temperature Temperature Source Pulse Rate 96 H 99 H Pulse Rate [Left] Respiratory Rate 18 18 Blood Pressure 137/81 143/80 H Blood Pressure [Right Arm] Blood Pressure Mean 94 96 Blood Pressure Mean [Right Arm] Blood Pressure Source [Right Arm] Blood Pressure Position [Right Arm] 02 Sat by Pulse Oximetry 94 L 94 L Oxygen Delivery Method Lab Data Lab results reviewed: Yes I reviewed the patient's lab results. Lab Results 07/17/24 11:09: Urine Color Yellow, Urine Appearance Cloudy, Urine pH 8.0, Ur Specific [place] 1.025, Urine Protein 2+ A, Urine Glucose (UA) Negative, Urine Ketones Negative, Urine Blood 2+ A, Urine Nitrate Positive, Urine Bilirubin Negative, Urine Urobilinogen 0.2, Ur Leukocyte Esterase 1+ A, Urine RBC 5-10, Urine WBC 10-20, Ur Squamous Epith Cells None, Urine Bacteria 2+ 07/17/24 11:26: WBC 8.3, RBC 4.33 L, Hgb 14.2, Hct 38.5 L, MCV 88.9, MCH 32.9 H, MCHC 37.0 H, RDW 14.5, Plt Count 214, MPV 8.2, Neut % (Auto) 65.9, Lymph % (Auto) 23.0, [place] % (Auto) 8.1, Eos % (Auto) 1.9, Baso % (Auto) 1.2, Neut # (Auto) 5.5, Lymph # (Auto) 1.9, [place] # (Auto) 0.7, Eos # (Auto) 0.2, Baso # (Auto) 0.1, Sodium 138, Potassium 3.6, Chloride 108 H, Carbon Dioxide 26, Anion Gap 7.6, BUN 28 H, Creatinine 0.90, Estimated Creat Clear 182, Estimated GFR 88, Est GFR ( Amer) 106, Glucose 93, Calcium 9.6, Total Bilirubin 0.5, AST 41, ALT 53, Alkaline Phosphatase 75, Total Protein 8.6 H, Albumin 4.8, Globulin 3.8 H, Albumin/Globulin Ratio 1.3 07/17/24 11:26 07/17/24 11:26 Orders (Tests/Meds): ED MEDICATIONS Generic Name Dose Route Start Last Admin Trade Name Freq PRN Reason Stop Dose Admin Ceftriaxone Sodium 1 gm/ 50 mls @ 100 mls/hr 07/17/24 13:00 07/17/24 12:51 Sodium Chloride IV 07/27/24 12:59 100 mls/hr Q24H JAZMIN Administration Discontinued Medications Generic Name Dose Route Start Last Admin Trade Name Freq PRN Reason Stop Dose Admin Lactated Ringer's 1,000 mls @ 999 mls/hr 07/17/24 11:15 07/17/24 11:28 Lactated Ringer's 1000 Ml Bag IV 07/17/24 12:15 999 mls/hr .Q1H1M JAZMIN Administration ORDERS Category Date Time Status POCUS Point of Care (ER Only) Stat Exams 07/17/24 10:45 Completed CBC w/Auto Diff [Complete Blood Count Auto Diff] Stat Lab 07/17/24 11:26 Completed CMP [Comprehensive Metabolic Panel] Stat Lab 07/17/24 11:26 Completed HIV (1&2) Antibody Rapid Stat Lab 07/17/24 11:26 Received Hep C Ab with Reflex to RNA Stat Lab 07/17/24 11:26 Received UA [Urinalysis and Microscopic] Stat Lab 07/17/24 11:09 Completed Urine Culture Stat Micro 07/17/24 11:09 Received Medical Decision Narrative: 54-year-old with above history and physical bedside ultrasound confirmed that there were 1 to 200 cc of fluid in his bladder Wayne catheter was in place. I am concerned about a possible infection. Will check urinalysis also will administer IV fluids and check a BMP. I am going to let him have a voiding trial and pull his Wayne catheter while he is in the emergency department which is his desire. Will reassess after this is complete. Reassessment 1:20 PM BMP unremarkable no evidence of renal insufficiency however patient does have urinary tract infection. His catheter was removed we will have in a voiding trial I spoke with his urologist Dr. Jaylen Olivier who states that we would give the patient antibiotics attempt his voiding trial at home and he may return to any emergency department for the catheter insertion otherwise he may follow-up in 3 to [address] Olivier. Return precautions of his as patient discharged in stable condition. First dose of Rocephin given while here. Procedures Miscellaneous Procedure Procedure Performed: Limited renal ultrasound Indication: A focused ultrasound of the kidneys was performed to evaluate for hydronephrosis and nephrolithiasis. The ultrasound was performed with the following indications, as noted in the H&P: Acute urinary retention Identified structures: Bladder Findings: Wayne catheter in place with 1 to 200 cc of visualized urine within the bladder itself Impression: Wayne catheter in place with a fluid-filled bladder Images were to permanent archive The study was technically adequate CPT: 13859-47 This study was performed by me, and I personally interpreted all images/videos. Based on my clinical judgement, these images were adequate and did not necessitate further imaging. Critical Care Critical Care Time Critical Care Time: No
[2024-07-17 11:19] LABS: Microscopic, Urine URINE MICROSCOPIC (MICROSCOPIC)
--- NOTE | 2024-07-17 11:20 | PC.NURSE ---
urinary catheter removed, pt tolerated well. urinal given for trial.
[2024-07-17 11:24] LABS: Appearance,Urine CLOUDY (Clear); Bilirubin,Urine Negative (Negative); Blood, Urine 2+ (Negative); Color,Urine YELLOW (Yellow); Glucose,Urine (UA) Negative (Negative); Ketones,Urine Negative (Negative); Leukocyte Esterase,Urine 1+ (Negative); Nitrate,Urine POSITIVE (Negative); Protein,Urine 2+ (Negative); Specific Gravity, Urine 1.025 (1.005-1.030); Urobilinogen,Urine 0.2 EU/dl (0.2)
[2024-07-17 11:26] VITALS: BP 150/85; PULSE 96; O2SAT 94
[2024-07-17] MEDS: LACTATED RINGERS 1000ML 1,000 ML 999 ML IV (11:28)
[2024-07-17 11:30] VITALS: BP 137/81; PULSE 96; RESP 18; O2SAT 94
[2024-07-17 11:38] LABS: Basophils # 0.1 K/mm3 (0-0.2); Basophils % 1.2 % (0.1-2.0); Eosinophils # 0.2 K/mm3 (0.0-0.4); Eosinophils % 1.9 % (0.1-12.0); Hematocrit 38.5 % (42.0-52.0); Hemoglobin 14.2 g/dL (14.1-18.0); Lymphocytes # 1.9 K/mm3 (0.7-4.5); Mean Corpuscular Hemoglobin 32.9 pg (27.0-31.2); Mean Corpuscular Volume 88.9 fl (80-94); Mean Platelet Volume 8.2 fl (7.4-10.4); Monocytes # 0.7 K/mm3 (0.1-1.0); Monocytes % 8.1 % (1.7-9.3); Neutrophils # 5.5 K/mm3 (1.8-7.8); Neutrophils % 65.9 % (37.0-80.0); Platelet Count 214 K/mm3 (142-424); Red Blood Count 4.33 M/mm3 (4.60-6.20); Red Cell Distribution Width 14.5 % (11.5-17.5); White Blood Count 8.3 K/mm3 (4.8-10.8)
[2024-07-17 11:46] LABS: Alanine Aminotransferase 53 U/L (12-78); Albumin Level 4.8 g/dl (3.5-5.0); Albumin/Globulin Ratio 1.3 (1.1-1.8); Alkaline Phosphatase 75 U/L (38-126); Aspartate Amino Transferase 41 U/L (17-59); Bilirubin,Total 0.5 mg/dl (0.2-1.3); Blood Urea Nitrogen 28 mg/dl (9-20); Calcium 9.6 mg/dl (8.4-10.2); Carbon Dioxide 26 mmol/L (22.0-30.0); Chloride 108 mmol/L (98-107); Creatinine Clearance Estimated 182 mL/min (50-200); Estimated Glomerular Filt Rate 88 ml/min (>60); GFR (African American) 106 ML/MIN (>60); Globulin 3.8 g/dL (1.3-3.2); Glucose 93 mg/dl (74-100); Sodium 138 mmol/L (136-145); Total Protein,Serum 8.6 g/dl (6.3-8.2)
[2024-07-17 12:00] VITALS: BP 143/80; PULSE 99; RESP 18; O2SAT 94
[2024-07-17 12:07] LABS: Bacteria,Urine 2+ /lpf
[2024-07-17 12:14] LABS: Anion Gap 7.6 mEq/L (5-15); Potassium 3.6 mmoL/L (3.5-5.1)
--- NOTE | 2024-07-17 12:15 | PC.NURSE ---
I rounded on the pt, he is still unable to urinate. call ruiz in reach, no new complaints.
--- NOTE | 2024-07-17 12:22 | PC.NURSE ---
pt attempted to urinate without any success. pt is ambulating around the nurses station.
--- NOTE | 2024-07-17 12:26 | PC.NURSE ---
I called and requested a lunch tray from [employer].
--- NOTE | 2024-07-17 12:48 | PC.NURSE ---
Called [facility] per Dr Staples to speak with Dr Jaylen Olivier about this pt. was put on a brief hold while they were trying to locate him... Dr Olivier was not in the office today but was given a [phone] to try and reach him.
[2024-07-17] MEDS: CEFTRIAXONE 1 GM 1 GM in 0.9 % SODIUM CHLORIDE 50 ML IV (12:51)
--- NOTE | 2024-07-17 13:05 | PC.NURSE ---
Dr Olivier called back and is speaking with Dr Staples at this time
[2024-07-17 13:29] VITALS: BP 157/94; PULSE 83; RESP 18; TEMP 36.3; O2SAT 98
[2024-07-17 14:46] LABS: HIV (1&2) Antibody Rapid NONREACTIVE (NONREACTIVE)
[2024-07-18 08:19] LABS: HCV Ab Non Reactive (Non Reactive)
--- NOTE | 2024-07-19 08:02 | PC.NURSE ---
urine results discussed with , pt dc with cefdinir, ntd
== END 2024-07-17 13:32 | disposition home or self-care (01) ==
PROVIDERS: Emergency Provider Student in an Organized Health Care Education/Training Program; PCP Family Medicine
DX: T83.9XXA Unspecified complication of genitourinary prosthetic device, implant and graft, initial encounter (principal); N48.89 Other specified disorders of penis; N40.0 Benign prostatic hyperplasia without lower urinary tract symptoms; R33.8 Other retention of urine; N39.0 Urinary tract infection, site not specified
CPT/HCPCS: 80053; 81001; 85025; 86803; 87086; 87088; 87186; 87389; 96361; 96374; 99283; J0696; J7120

== ENCOUNTER 2024-07-17 14:37 | Emergency (ER) | payer BC, SELFPAY ==
[2024-07-17 14:37] VITALS: BP 179/113; PULSE 99; RESP 20; TEMP 36.8; O2SAT 97; BMI 39.1
--- NOTE | 2024-07-17 14:46 | ED_ITS ---
Discharge Plan Disposition Patient Disposition: Home, Self-Care Prescriptions Prescriptions: No Action lisinopril 20 mg tablet PO Patient Comments: TAKE 1 TABLET BY MOUTH EVERY DAY meloxicam 15 mg tablet 15 mg PO DAILY Qty: 30 2RF tamsulosin [Flomax] 0.4 mg capsule 0.4 mg PO DAILY 90 Days Qty: 90 0RF finasteride [Proscar] 5 mg tablet 5 mg PO DAILY Qty: 90 3RF cefdinir 300 mg capsule 300 mg PO BID 10 Days Qty: 20 0RF ibuprofen 800 mg tablet 800 mg PO TID PRN (Reason: pain) 7 Days Qty: 20 0RF ketorolac 10 mg tablet 10 mg PO Q8H PRN (Reason: pain) Qty: 10 0RF oxycodone 5 mg tablet 5 mg PO Q8H PRN (Reason: pain) Qty: 12 0RF ondansetron 4 mg tablet,disintegrating 4 mg PO Q8H PRN (Reason: nausea and vomiting) 4 Days Qty: 12 0RF Referrals Follow up/Referrals: Kylie Gan MD [Primary Care Provider] - See instructions Clinical Impressions Clinical Impression: Urine retention Print Language Print Language: Serbian Discharge ED Provider: Carolin Staples General Adult HPI General Stated complaint: Needs catheter back in Time Seen by Provider: 07/17/24 14:40 History of Present Illness HPI narrative: Patient is a 54-year-old male returning to the emergency department after recently being discharged for acute urinary retention. Please see my recent ED note for further documentation. He returns after a voiding trial with significant lower abdominal discomfort and pressure requesting replacement of his catheter. Related Data Home Medications ?Medication ?Instructions ?Recorded ?Confirmed lisinopril 20 mg tablet mg PO 01/24/24 03/06/24 Previous Rx's ?Medication ?Instructions ?Recorded meloxicam 15 mg tablet 15 mg PO DAILY #30 tabs 05/05/23 ibuprofen 800 mg tablet 800 mg PO TID PRN pain 7 days #20 02/11/24 tabs ketorolac 10 mg tablet 10 mg PO Q8H PRN pain #10 tabs 03/02/24 ondansetron 4 mg disintegrating 4 mg PO Q8H PRN nausea and 03/02/24 tablet vomiting 4 days #12 tabs oxycodone 5 mg tablet 5 mg PO Q8H PRN pain #12 tabs 05/30/24 finasteride 5 mg tablet (Proscar) 5 mg PO DAILY #90 tabs 05/15/24 tamsulosin 0.4 mg capsule (Flomax) 0.4 mg PO DAILY 90 days #90 caps 05/15/24 cefdinir 300 mg capsule 300 mg PO BID 10 days #20 caps 07/17/24 Allergies Allergy/AdvReac Type Severity Reaction Status Date / Time hydrocodone [HYDROCODONE] Allergy Unknown SEVERE Verified 07/17/24 10:44 HEADACHE PFSH PFS Disclaimer: The information contained in this section may have been updated after the patient was seen, as this information can be updated by other users. Medical History Kidney stone Sleep apnea History of COVID-19 Enlarged prostate Sinus headache Diverticulosis Edema HTN (hypertension), benign Surgical History History of colonoscopy History of ankle surgery LEFT History of arthroscopy of both knees Family History Other Cancer Diabetes Social History Smoking Status: Former smoker tobacco type: cigarettes second hand exposure: No alcohol intake: former counseling provided: none substance use type: denies use current occupational status: employed Travel in the last 8 weeks: None household members: spouse housing: house marital status: caffeine: No Other Medical History Have you received the Flu Vaccine for this season: No Have you received the Pneumonia Vaccine: No ROS Obtained: Yes All systems reviewed & no additional complaints except as documented Physical Exam General General appearance: in distress (Walking around in pain) Respiratory Respiratory exam: Present normal lung sounds bilaterally Cardiovascular Cardiovascular exam: Present regular rate Abdominal Exam Abdominal exam: Present soft; Absent distention or tenderness Neurological Exam Neurological exam: Present alert and oriented X3 Medical Decision Making Medical Records Screening: Per USPSTF and CDC recommendations, given the prevalence of disease in our region, it is our hospital?s policy to screen for HIV and viral Hepatitis for all patients aged 18 and over and those with ongoing risk factors. Holden Inquiry Pt receiving controlled substance: No Medical Decision Narrative: 54-year-old with extensive history of urinary retention who attempted a voiding trial after being found to have a urinary tract infection and clogged catheter earlier today after discussing the case with his urologist Dr. Jaylen Olivier. He returns with worsening urinary retention we will place a Wayne catheter and anchor it and have him follow-up with his urologist in 3 to 4 weeks according to that doctor's discretion. Critical Care Critical Care Time Critical Care Time: No
[2024-07-17 15:06] VITALS: BP 179/113; PULSE 99; RESP 20; TEMP 36.8; O2SAT 97
== END 2024-07-17 15:07 | disposition home or self-care (01) ==
PROVIDERS: Emergency Provider Student in an Organized Health Care Education/Training Program; PCP Family Medicine
DX: T83.098A Other mechanical complication of other urinary catheter, initial encounter (principal); R33.9 Retention of urine, unspecified
CPT/HCPCS: 99282

== ENCOUNTER 2024-08-28 12:08 | Emergency (ER) | payer BC, SELFPAY ==
--- NOTE | 2024-08-28 12:21 | ED_ITS ---
<Statement entered by Carolin Staples MD - 08/28/24 14:39> I was consulted by the SAMEER, and we discussed the complexity of the problems being addressed. I approved the treatment and management plan for this patient's care in the emergency department, thus performing a substantive portion of the medical decision making. Carolin Staples MD, KORIN, FACEP Discharge Plan Prescriptions Prescriptions: New sulfamethoxazole-trimethoprim [Bactrim DS] 800-160 mg tablet 1 tab PO BID 5 Days Qty: 10 0RF No Action lisinopril 20 mg tablet PO Patient Comments: TAKE 1 TABLET BY MOUTH EVERY DAY meloxicam 15 mg tablet 15 mg PO DAILY Qty: 30 2RF tamsulosin [Flomax] 0.4 mg capsule 0.4 mg PO DAILY 90 Days Qty: 90 0RF finasteride [Proscar] 5 mg tablet 5 mg PO DAILY Qty: 90 3RF cefdinir 300 mg capsule 300 mg PO BID 10 Days Qty: 20 0RF ibuprofen 800 mg tablet 800 mg PO TID PRN (Reason: pain) 7 Days Qty: 20 0RF ketorolac 10 mg tablet 10 mg PO Q8H PRN (Reason: pain) Qty: 10 0RF oxycodone 5 mg tablet 5 mg PO Q8H PRN (Reason: pain) Qty: 12 0RF ondansetron 4 mg tablet,disintegrating 4 mg PO Q8H PRN (Reason: nausea and vomiting) 4 Days Qty: 12 0RF Referrals Follow up/Referrals: Kylie Gan MD [Primary Care Provider] - See instructions Activity Restrictions/Add. Instructions Additional Instructions/Restrictions: I have called in a prescription for Bactrim to your pharmacy. Please take till it is gone. Follow-up with your urologist as scheduled. Follow-up with your PCP for no improvement or worsening signs or symptoms or return to the ER as needed Clinical Impressions Clinical Impression: Complication, blocked Wayne catheter Urinary tract infection Qualifiers: Urinary tract infection type: site unspecified Hematuria presence: with hematuria Qualified Code(s): N39.0 - Urinary tract infection, site not specified Instructions Patient Instructions: DI for Urinary Tract Infection (UTI) Print Language Print Language: Khmer Discharge ED Provider: Carolin Staples General Adult [facility] General Chief complaint: Urogenital-Male Stated complaint: catheter, poss uti's Time Seen by Provider: 08/28/24 12:21 History of Present Illness HPI narrative: Patient presents for a Wayne catheter malfunction. Patient has chronic bladder outlet obstruction due to BPH and has an indwelling Wayne catheter. He follows with [facility] in [place]. Patient reports he has been having discomfort and right flank pain but no fevers chills hemoptysis hematochezia melena he has some nausea but no vomiting or diarrhea. He has had no Wayne catheter output today. Related Data Home Medications ?Medication ?Instructions ?Recorded ?Confirmed lisinopril 20 mg tablet mg PO 01/24/24 03/06/24 Previous Rx's ?Medication ?Instructions ?Recorded meloxicam 15 mg tablet 15 mg PO DAILY #30 tabs 05/05/23 ibuprofen 800 mg tablet 800 mg PO TID PRN pain 7 days #20 02/11/24 tabs ketorolac 10 mg tablet 10 mg PO Q8H PRN pain #10 tabs 03/02/24 ondansetron 4 mg disintegrating 4 mg PO Q8H PRN nausea and 03/02/24 tablet vomiting 4 days #12 tabs oxycodone 5 mg tablet 5 mg PO Q8H PRN pain #12 tabs 03/02/24 finasteride 5 mg tablet (Proscar) 5 mg PO DAILY #90 tabs 05/15/24 tamsulosin 0.4 mg capsule (Flomax) 0.4 mg PO DAILY 90 days #90 caps 05/15/24 cefdinir 300 mg capsule 300 mg PO BID 10 days #20 caps 07/17/24 sulfamethoxazole 800 1 tab PO BID 5 days #10 tabs 08/28/24 mg-trimethoprim 160 mg tablet (Bactrim DS) Allergies Allergy/AdvReac Type Severity Reaction Status Date / Time hydrocodone (HYDROCODONE) Allergy Unknown SEVERE Verified 08/28/24 12:57 [facility] Disclaimer: The information contained in this section may have been updated after the patient was seen, as this information can be updated by other users. Medical History Kidney stone Sleep apnea History of COVID-19 Enlarged prostate Sinus headache Diverticulosis Edema HTN (hypertension), benign Surgical History History of colonoscopy History of ankle surgery LEFT History of arthroscopy of both knees Family History Other Cancer Diabetes Social History Smoking Status: Former smoker tobacco type: cigarettes second hand exposure: No alcohol intake: former counseling provided: none substance use type: denies use current occupational status: employed household members: spouse housing: house marital status: caffeine: No Other Medical History Have you received the Flu Vaccine for this season: No Have you received the Pneumonia Vaccine: No ROS Obtained: Yes Systems reviewed as appropriate & no additional complaints except as documented Physical Exam General General appearance: alert and in no apparent distress Respiratory Respiratory exam: Present normal lung sounds bilaterally Cardiovascular Cardiovascular exam: Present tachycardia Neurological Exam Neurological exam: Present alert and oriented X3 Medical Decision Making Medical Records Medical records reviewed: Yes I reviewed the patient's medical records. Screening: Per USPSTF and CDC recommendations, given the prevalence of disease in our region, it is our hospital?s policy to screen for HIV and viral Hepatitis for all patients aged 18 and over and those with ongoing risk factors. Holden Inquiry Pt receiving controlled substance: No Vital Signs: 08/28/24 12:26 08/28/24 12:32 08/28/24 13:21 Temperature 97.6 F 98.6 F Temperature Source Oral Pulse Rate 109 H 96 H Pulse Rate [Left] 108 H Respiratory Rate 16 16 Blood Pressure 124/94 H 124/94 H Blood Pressure [Right Arm] 150/96 H Blood Pressure Mean [Right Arm] 114 Blood Pressure Source [Right Arm] Automatic Cuff Blood Pressure Position [Right Arm] Sitting 02 Sat by Pulse Oximetry 96 95 Oxygen Delivery Method Room Air Room Air Lab Data Lab results reviewed: Yes I reviewed the patient's lab results. Lab Results 08/28/24 12:23: WBC 7.7, RBC 4.68, Hgb 14.6, Hct 42.4, MCV 90.6, MCH 31.1, MCHC 34.3, RDW 14.0, Plt Count 233, MPV 8.5, Neut % (Auto) 69.4, Lymph % (Auto) 21.4, [place] % (Auto) 6.2, Eos % (Auto) 2.2, Baso % (Auto) 0.8, Neut # (Auto) 5.3, Lymph # (Auto) 1.7, [place] # (Auto) 0.5, Eos # (Auto) 0.2, Baso # (Auto) 0.1, Sodium 142, Potassium 3.7, Chloride 109 H, Carbon Dioxide 22, Anion Gap 14.7, BUN 25 H, Creatinine 1.10, Estimated GFR 69, Est GFR ( Amer) 84, Glucose 139 H, Calcium 9.3, Total Bilirubin 0.5, AST 54, ALT 71, Alkaline Phosphatase 99, Total Protein 8.1, Albumin 4.5, Globulin 3.6 H, Albumin/Globulin Ratio 1.3 08/28/24 12:43: Urine Color Yellow, Urine Appearance Sl cloudy, Urine pH 6.0, Ur Specific [place] 1.025, Urine Protein Negative, Urine Glucose (UA) Negative, Urine Ketones Negative, Urine Blood 3+ A, Urine Nitrate Positive A, Urine Bilirubin Negative, Urine Urobilinogen 0.2, Ur Leukocyte Esterase 2+ A, Urine RBC 10-20, Urine WBC 20-50, Ur Squamous Epith Cells None, Urine Bacteria 1+ 08/28/24 12:23 08/28/24 12:23 Orders (Tests/Meds): ED MEDICATIONS Discontinued Medications Generic Name Dose Route Start Last Admin Trade Name Jakeq PRN Reason Stop Dose Admin Ketorolac Tromethamine 15 mg 08/28/24 12:22 08/28/24 12:59 Ketorolac 30mg/Ml Vial IV 08/28/24 12:23 15 mg ONCE ONE Administration Trimethoprim/Sulfamethoxazole 1 each 08/28/24 13:02 08/28/24 13:12 Sulfa/Trimethoprim 1 Tablet PO 08/28/24 13:03 1 each ONCE ONE Administration ORDERS Category Date Time Status CBC w/Auto Diff [Complete Blood Count Auto Diff] Stat Lab 08/28/24 12:23 Completed CMP [Comprehensive Metabolic Panel] Stat Lab 08/28/24 12:23 Results Procalcitonin Stat Lab 08/28/24 12:23 Results UA [Urinalysis and Microscopic] Stat Lab 08/28/24 12:43 Completed Urine Culture Stat Micro 08/28/24 12:43 Received Medical Decision Narrative: In summary patient is a 4-year-old male who presents to the emergency department for evaluation of Wayne catheter clogged. Patient is initially with normotensive with a blood pressure 150/96 but tachycardic at 108 breathing 16 times a minute satting at 96% on room air upon arrival, afebrile. Physical exam is remarkable for super pubic tenderness to palpation but no rebound or guarding or rigidity. Patient has no CVA tenderness.. Differential diagnosis includes Wayne catheter malfunction versus UTI versus pyelonephritis etc. Initial workup will be conducted with hematologic labs urinalysis. Initial interventions include Wayne catheter change Toradol. Initial workup reviewed by me shows his hematologic labs are nonactionable however his urinalysis is consistent with a urinary tract infection. I personally collected the specimen after Wayne catheter change. Upon repeat evaluation patient had immediate improvement in his symptoms after Wayne catheter change.. Given this patient is appropriate for discharge with follow-up with urology as scheduled, a prescription for Bactrim sent to his pharmacy with first dose given here. Critical Care Critical Care Time Critical Care Time: No
[2024-08-28 12:26] VITALS: BP 150/96; PULSE 108; RESP 16; TEMP 36.4; O2SAT 96; BMI 39.4
[2024-08-28 12:31] LABS: Basophils # 0.1 K/mm3 (0-0.2); Basophils % 0.8 % (0.1-2.0); Eosinophils # 0.2 K/mm3 (0.0-0.4); Eosinophils % 2.2 % (0.1-12.0); Hematocrit 42.4 % (42.0-52.0); Hemoglobin 14.6 g/dL (14.1-18.0); Lymphocytes # 1.7 K/mm3 (0.7-4.5); Lymphocytes % 21.4 % (10-50); Mean Corpuscular HGB Conc 34.3 g/dL (31.8-35.4); Mean Corpuscular Hemoglobin 31.1 pg (27.0-31.2); Mean Corpuscular Volume 90.6 fl (80-94); Mean Platelet Volume 8.5 fl (7.4-10.4); Monocytes # 0.5 K/mm3 (0.1-1.0); Monocytes % 6.2 % (1.7-9.3); Neutrophils # 5.3 K/mm3 (1.8-7.8); Neutrophils % 69.4 % (37.0-80.0); Platelet Count 233 K/mm3 (142-424); Red Blood Count 4.68 M/mm3 (4.60-6.20); White Blood Count 7.7 K/mm3 (4.8-10.8)
[2024-08-28 12:32] VITALS: BP 124/94; PULSE 109; O2SAT 95
[2024-08-28 12:39] LABS: Albumin Level 4.5 g/dl (3.5-5.0); Chloride 109 mmol/L (98-107); Potassium 3.7 mmoL/L (3.5-5.1); Sodium 142 mmol/L (136-145)
[2024-08-28 12:42] LABS: Alanine Aminotransferase 71 U/L (12-78); Albumin/Globulin Ratio 1.3 (1.1-1.8); Alkaline Phosphatase 99 U/L (38-126); Anion Gap 14.7 mEq/L (5-15); Aspartate Amino Transferase 54 U/L (17-59); Bilirubin,Total 0.5 mg/dl (0.2-1.3); Blood Urea Nitrogen 25 mg/dl (9-20); Carbon Dioxide 22 mmol/L (22.0-30.0); Estimated Glomerular Filt Rate 69 ml/min (>60); GFR (African American) 84 ML/MIN (>60); Globulin 3.6 g/dL (1.3-3.2); Total Protein,Serum 8.1 g/dl (6.3-8.2)
[2024-08-28 12:43] LABS: Calcium 9.3 mg/dl (8.4-10.2); Glucose 139 mg/dl (74-100)
[2024-08-28 12:48] LABS: Microscopic, Urine URINE MICROSCOPIC (MICROSCOPIC)
[2024-08-28 12:49] LABS: Appearance,Urine SL CLOUDY (Clear); Bilirubin,Urine Negative (Negative); Blood, Urine 3+ (Negative); Color,Urine YELLOW (Yellow); Glucose,Urine (UA) Negative (Negative); Ketones,Urine Negative (Negative); Leukocyte Esterase,Urine 2+ (Negative); Nitrate,Urine POSITIVE (Negative); Protein,Urine Negative (Negative); Specific Gravity, Urine 1.025 (1.005-1.030); Urobilinogen,Urine 0.2 EU/dl (0.2)
[2024-08-28] MEDS: KETOROLAC 30MG/ML VIAL 15 MG IV (12:59)
--- NOTE | 2024-08-28 13:05 | PC.NURSE ---
I ROUNDED ON THE PT. NO NEW COMPLAINTS. LITTLE TO NO DRAINAGE IN HIS FERN[place]NDEZ BAG POST CHANGE. NO NEEDS VOICED. CALL COUCH IN REACH.
[2024-08-28 13:11] LABS: Bacteria,Urine 1+ /lpf; WBC,Urine 20-50 #/hpf (0-3)
[2024-08-28] MEDS: SULFA/TRIMETHOPRIM 1 TABLET 1 EACH PO (13:12)
[2024-08-28 13:21] VITALS: BP 124/94; PULSE 96; RESP 16; TEMP 37
[2024-08-28 14:06] LABS: Procalcitonin 0.079 ng/mL (0.0-2.0)
--- NOTE | 2024-08-30 09:35 | PC.NURSE ---
Urine culture discussed with , pt dc with bactrim, ntd
== END 2024-08-28 13:22 | disposition home or self-care (01) ==
PROVIDERS: Physician Assistant; Emergency Provider Student in an Organized Health Care Education/Training Program; PCP Family Medicine
DX: N39.0 Urinary tract infection, site not specified (principal); T83.091A Other mechanical complication of indwelling urethral catheter, initial encounter; R10.31 Right lower quadrant pain
CPT/HCPCS: 80053; 81001; 84145; 85025; 87086; 87088; 87186; 96374; 99283; J1885

== ENCOUNTER 2024-09-10 13:26 | Emergency (ER) | payer BC, SELFPAY ==
[2024-09-10 13:27] VITALS: BP 147/81; PULSE 89; RESP 16; TEMP 36.4; O2SAT 98; BMI 39.4
--- NOTE | 2024-09-10 13:32 | ED_ITS ---
Discharge Plan Disposition Patient Disposition: Home, Self-Care Condition: Fair Prescriptions Prescriptions: New sulfamethoxazole-trimethoprim 800-160 mg tablet 1 tab PO BID Qty: 28 0RF No Action lisinopril 20 mg tablet PO Patient Comments: TAKE 1 TABLET BY MOUTH EVERY DAY meloxicam 15 mg tablet 15 mg PO DAILY Qty: 30 2RF tamsulosin [Flomax] 0.4 mg capsule 0.4 mg PO DAILY 90 Days Qty: 90 0RF finasteride [Proscar] 5 mg tablet 5 mg PO DAILY Qty: 90 3RF cefdinir 300 mg capsule 300 mg PO BID 10 Days Qty: 20 0RF sulfamethoxazole-trimethoprim [Bactrim DS] 800-160 mg tablet 1 tab PO BID 5 Days Qty: 10 0RF ibuprofen 800 mg tablet 800 mg PO TID PRN (Reason: pain) 7 Days Qty: 20 0RF ketorolac 10 mg tablet 10 mg PO Q8H PRN (Reason: pain) Qty: 10 0RF oxycodone 5 mg tablet 5 mg PO Q8H PRN (Reason: pain) Qty: 12 0RF ondansetron 4 mg tablet,disintegrating 4 mg PO Q8H PRN (Reason: nausea and vomiting) 4 Days Qty: 12 0RF Referrals Follow up/Referrals: Dipak Gan MD [Primary Care Provider] - See instructions Activity Restrictions/Add. Instructions Additional Instructions/Restrictions: Take antibiotics prescribed. If you develop fevers or worsening symptoms, you must come back to the hospital for IV antibiotics. Wear your leg bag to avoid recurring UTIs. Please follow up with your primary care provider in 2-3 days. Please return to ED if your symptoms worsen, change in location, change in severity, new symptoms develop or if you become concerned for your health. Clinical Impressions Clinical Impression: UTI (urinary tract infection) due to urinary indwelling catheter Instructions Patient Instructions: DI for Urinary Tract Infection (UTI), DI for Urinary Tract Infection in Children Print Language Print Language: Beninese Discharge ED Provider: Joss Paez Adult HPI General Chief complaint: Urogenital-Male Stated complaint: uti Time Seen by Provider: 09/10/24 13:32 History of Present Illness HPI narrative: Patient is a 54-year-old male with history of BPH, urinary retention s/p Wayne. Patient reports that he has been capping his Wayne catheter instead of using the bag and just uncapping and draining it when he feels the need to urinate. He reports some suprapubic pain and burning sensation in feels like he has a UTI he also reports diminished drainage from his Wayne catheter, but it is still draining. Denies any hematuria or dark-colored urine. Denies any fevers, chest pain, shortness of breath nausea, vomiting, diarrhea, . He is still passing gas and having good bowel movements. He is scheduled for a procedure on at [facility] to have an embolization of the prostate. Related Data Home Medications ?Medication ?Instructions ?Recorded ?Confirmed lisinopril 20 mg tablet mg PO 01/24/24 03/06/24 Previous Rx's ?Medication ?Instructions ?Recorded meloxicam 15 mg tablet 15 mg PO DAILY #30 tabs 05/05/23 ibuprofen 800 mg tablet 800 mg PO TID PRN pain 7 days #20 02/11/24 tabs ketorolac 10 mg tablet 10 mg PO Q8H PRN pain #10 tabs 03/02/24 ondansetron 4 mg disintegrating 4 mg PO Q8H PRN nausea and 03/02/24 tablet vomiting 4 days #12 tabs oxycodone 5 mg tablet 5 mg PO Q8H PRN pain #12 tabs 03/02/24 finasteride 5 mg tablet (Proscar) 5 mg PO DAILY #90 tabs 05/15/24 tamsulosin 0.4 mg capsule (Flomax) 0.4 mg PO DAILY 90 days #90 caps 05/15/24 cefdinir 300 mg capsule 300 mg PO BID 10 days #20 caps 07/17/24 sulfamethoxazole 800 1 tab PO BID 5 days #10 tabs 08/28/24 mg-trimethoprim 160 mg tablet (Bactrim DS) sulfamethoxazole 800 1 tab PO BID #28 tabs 09/10/24 mg-trimethoprim 160 mg tablet Allergies Allergy/AdvReac Type Severity Reaction Status Date / Time hydrocodone (HYDROCODONE) Allergy Unknown SEVERE Verified 08/28/24 12:57 [facility] Disclaimer: The information contained in this section may have been updated after the patient was seen, as this information can be updated by other users. Medical History Kidney stone Sleep apnea History of COVID-19 Enlarged prostate Sinus headache Diverticulosis Edema HTN (hypertension), benign Surgical History History of colonoscopy History of ankle surgery LEFT History of arthroscopy of both knees Family History Other Cancer Diabetes Social History (Updated 08/28/24 @ 13:34 by VENKATA Cornejo) Smoking Status: Former smoker tobacco type: cigarettes second hand exposure: No alcohol intake: former counseling provided: none substance use type: denies use current occupational status: employed Travel in the last 8 weeks: None household members: spouse housing: house marital status: caffeine: No Other Medical History Have you received the Flu Vaccine for this season: No Have you received the Pneumonia Vaccine: No ROS Obtained: Yes All systems reviewed & no additional complaints except as documented Physical Exam General General appearance: alert and in no apparent distress Head Head exam: atraumatic and normocephalic Eye Eye exam: Present PERRL and EOMI ENT ENT exam: Present normal oropharynx Neck Neck exam: Present full ROM and trachea midline Chest Chest inspection: Present symmetric chest wall rise Respiratory Respiratory exam: Present normal lung sounds bilaterally; Absent stridor Cardiovascular Cardiovascular exam: Present regular rate and normal rhythm Abdominal Exam Abdominal exam: Present soft and tenderness (Moderate suprapubic, no CVA tenderness); Absent distention exam: Present other (Wayne in place) Extremities Exam Extremities exam: Present full ROM Neurological Exam Neurological exam: Present alert and oriented X3 Psychiatric Psychiatric exam: Present normal mood Skin Skin exam: Present warm and dry Medical Decision Making Medical Records Screening: Per USPSTF and CDC recommendations, given the prevalence of disease in our region, it is our hospital?s policy to screen for HIV and viral Hepatitis for all patients aged 18 and over and those with ongoing risk factors. Holden Inquiry Pt receiving controlled substance: No Vital Signs: 09/10/24 13:27 09/10/24 15:56 Temperature 97.6 F 98.0 F Temperature Source Oral Pulse Rate 90 Pulse Rate [Left Radial] 89 Respiratory Rate 16 16 Blood Pressure 148/90 H Blood Pressure [Right Arm] 147/81 H Blood Pressure Mean [Right Arm] 103 02 Sat by Pulse Oximetry 98 Oxygen Delivery Method Room Air Lab Data Lab Results 09/10/24 14:29: Urine Color Yellow, Urine Appearance Clear, Urine pH 6.0, Ur Specific [place] >= 1.030, Urine Protein Negative, Urine Glucose (UA) Negative, Urine Ketones Negative, Urine Blood 2+ A, Urine Nitrate Positive A, Urine Bilirubin Negative, Urine Urobilinogen 0.2, Ur Leukocyte Esterase 1+ A, Urine RBC 3-5, Urine WBC 10-20, Urine Bacteria 1+ 09/10/24 14:41: WBC 6.9, RBC 4.46 L, Hgb 13.7 L, Hct 40.3 L, MCV 90.4, MCH 30.7, MCHC 34.0, RDW 14.2, Plt Count 208, MPV 8.9, Neut % (Auto) 64.6, Lymph % (Auto) 25.2, [place] % (Auto) 6.4, Eos % (Auto) 2.6, Baso % (Auto) 1.2, Neut # (Auto) 4.5, Lymph # (Auto) 1.7, [place] # (Auto) 0.4, Eos # (Auto) 0.2, Baso # (Auto) 0.1, Sodium 141, Potassium 4.2, Chloride 107, Carbon Dioxide 27, Anion Gap 11.2, BUN 24 H, Creatinine 1.10, Estimated Creat Clear 149, Estimated GFR 69, Est GFR ( Amer) 84, Glucose 123 H, Calcium 8.6, Total Bilirubin 0.5, AST 61 H, ALT 59, Alkaline Phosphatase 98, Total Protein 7.4, Albumin 4.3, Globulin 3.1, Albumin/Globulin Ratio 1.4, Lipase 155 09/10/24 14:41 09/10/24 14:41 Orders (Tests/Meds): ED MEDICATIONS Discontinued Medications Generic Name Dose Route Start Last Admin Trade Name Freq PRN Reason Stop Dose Admin Acetaminophen 1,000 mg 09/10/24 14:05 09/10/24 14:23 Acetaminophen 500mg Tab PO 09/10/24 14:06 1,000 mg ONCE ONE Administration ORDERS Category Date Time Status Complete Blood Count Auto Diff Stat Lab 09/10/24 14:41 Completed Comprehensive Metabolic Panel Stat Lab 09/10/24 14:41 Completed Lipase Stat Lab 09/10/24 14:41 Completed Urinalysis and Microscopic Stat Lab 09/10/24 14:29 Completed Urine Culture Stat Micro 09/10/24 14:29 Received Medical Decision Narrative: In summary, this 54-year-old presents to the emergency department today with suprapubic pain and Wayne catheter issue. On initial evaluation patient is afebrile, hemodynamically stable in no acute distress. On exam, he is warm and well-perfused with full pulses and bilateral upper extremities. His abdomen is soft and not distended. He does have some reproducible tenderness in the suprapubic region. His Wayne is in place, but it is capped and there is no bag present no CVA tenderness.. Differential diagnosis includes but is not limited to urinary retention, cystitis, pyelonephritis, PAULINA. Based on these concerns, I ordered CBC, CMP, urinalysis, urine culture. I reviewed prior records including Similar presentation on 08/28/2024 where his Wayne catheter was replaced and he was discharged after Wyane replacement. I reviewed prior Urine Cx results demonstrating E. facaelis susceptible to Bactrim. However, last urine cx demonstrates resistant Staph species, however, less than 100,000CFU indicates questionable UTI. I am favored to treat with IV abx such as Vancomycin. However, pt is adamant that he does not want to stay for IV abx. I explained the risks of leaving without IV abx including that oral abx may not treat his infection and it could get worse and turn into a more severe infection. He is alert, oriented, and understanding of this . He is concerned that he may miss his procedure this week if hospitalized. Given he is well appearing and of sound mind, he wishes to proceed with oral antibiotics which i will send for complicated UTI treatment outpatient with Bactrim. He tells me he will return if he has fevers or worsening sx. Furthermore, i have reiterated numerous times during the visit that patient should not be clamping off his urinary catheter. It should drain freely into the bag to avoid further infection risk. He is given a leg bag to go home with and return precautions are reiterated. Patient received Tylenol for treatment. Labs personally reviewed demonstrate no PAULINA. no electrolye disturbance. No leukocytosis. No significant anemia. I considered CT renal stone to evaluate for stone, but pt is not tender in the CVA region and does not feel consistent with his prior renal stones, so this was deferred as risks outweigh benefits. On reassessment, new Wayne anchored, good drainage. Improvement in sx. Of note, social determinants of health include inability to see specialist in a timely manner. At this time it was felt that the patient was safe to be discharged home. The patient was in agreement with this plan. The patient was given strict return precautions prior to being discharged from the emergency department.] Critical Care Critical Care Time Critical Care Time: No
[2024-09-10] MEDS: ACETAMINOPHEN 500MG TAB 1000 MG PO (14:23)
[2024-09-10 14:38] LABS: Microscopic, Urine URINE MICROSCOPIC (MICROSCOPIC)
[2024-09-10 14:46] LABS: Appearance,Urine CLEAR (Clear); Bilirubin,Urine Negative (Negative); Blood, Urine 2+ (Negative); Color,Urine YELLOW (Yellow); Glucose,Urine (UA) Negative (Negative); Ketones,Urine Negative (Negative); Leukocyte Esterase,Urine 1+ (Negative); Nitrate,Urine POSITIVE (Negative); Protein,Urine Negative (Negative); Specific Gravity, Urine >= 1.030 (1.005-1.030); Urobilinogen,Urine 0.2 EU/dl (0.2)
[2024-09-10 14:51] LABS: Basophils # 0.1 K/mm3 (0-0.2); Basophils % 1.2 % (0.1-2.0); Eosinophils # 0.2 K/mm3 (0.0-0.4); Eosinophils % 2.6 % (0.1-12.0); Hematocrit 40.3 % (42.0-52.0); Hemoglobin 13.7 g/dL (14.1-18.0); Lymphocytes # 1.7 K/mm3 (0.7-4.5); Lymphocytes % 25.2 % (10-50); Mean Corpuscular Hemoglobin 30.7 pg (27.0-31.2); Mean Corpuscular Volume 90.4 fl (80-94); Mean Platelet Volume 8.9 fl (7.4-10.4); Monocytes # 0.4 K/mm3 (0.1-1.0); Monocytes % 6.4 % (1.7-9.3); Neutrophils # 4.5 K/mm3 (1.8-7.8); Neutrophils % 64.6 % (37.0-80.0); Platelet Count 208 K/mm3 (142-424); Red Blood Count 4.46 M/mm3 (4.60-6.20); Red Cell Distribution Width 14.2 % (11.5-17.5); White Blood Count 6.9 K/mm3 (4.8-10.8)
[2024-09-10 15:01] LABS: Albumin Level 4.3 g/dl (3.5-5.0); Chloride 107 mmol/L (98-107); Sodium 141 mmol/L (136-145)
[2024-09-10 15:02] LABS: Potassium 4.2 mmoL/L (3.5-5.1)
[2024-09-10 15:02] LABS: Bacteria,Urine 1+ /lpf
[2024-09-10 15:04] LABS: Alanine Aminotransferase 59 U/L (12-78); Albumin/Globulin Ratio 1.4 (1.1-1.8); Alkaline Phosphatase 98 U/L (38-126); Anion Gap 11.2 mEq/L (5-15); Aspartate Amino Transferase 61 U/L (17-59); Bilirubin,Total 0.5 mg/dl (0.2-1.3); Blood Urea Nitrogen 24 mg/dl (9-20); Carbon Dioxide 27 mmol/L (22.0-30.0); Creatinine Clearance Estimated 149 mL/min (50-200); Estimated Glomerular Filt Rate 69 ml/min (>60); GFR (African American) 84 ML/MIN (>60); Globulin 3.1 g/dL (1.3-3.2); Lipase 155 U/L (23-300); Total Protein,Serum 7.4 g/dl (6.3-8.2)
[2024-09-10 15:05] LABS: Calcium 8.6 mg/dl (8.4-10.2); Glucose 123 mg/dl (74-100)
[2024-09-10 15:56] VITALS: BP 148/90; PULSE 90; RESP 16; TEMP 36.7
--- NOTE | 2024-09-13 10:11 | PC.NURSE ---
urine culture discussed with , pt dc with bactrim, ntd
--- NOTE | 2024-09-16 08:49 | PC.NURSE ---
DISCUSSED URINE CULTURE WITH DR MCBRIDE, ATTEMPTED TO REACH PT, UNABLE TO LEAVE MESSAGE
== END 2024-09-10 15:57 | disposition home or self-care (01) ==
PROVIDERS: Emergency Provider Emergency Medicine; PCP Psychiatry & Neurology Sleep Medicine
DX: T83.511A Infection and inflammatory reaction due to indwelling urethral catheter, initial encounter (principal); R10.2 Pelvic and perineal pain; R30.9 Painful micturition, unspecified; R33.9 Retention of urine, unspecified
CPT/HCPCS: 80053; 81001; 83690; 85025; 87086; 87088; 87186; 99283

== ENCOUNTER 2024-10-12 16:03 | Emergency (ER) | payer BC, SELFPAY ==
[2024-10-12 16:05] VITALS: BP 166/98; PULSE 98; RESP 18; TEMP 36.9; O2SAT 99; BMI 40.0
--- NOTE | 2024-10-12 16:29 | ED_ITS ---
<Statement entered by Carolin Staples MD - 10/12/24 22:43> I was consulted by the SAMEER, and we discussed the complexity of the problems being addressed. I approved the treatment and management plan for this patient's care in the emergency department, thus performing a substantive portion of the medical decision making. Carolin Staples MD, KORIN, FACEP Discharge Plan Disposition Patient Disposition: Home, Self-Care Condition: Good Prescriptions Prescriptions: New amoxicillin-pot clavulanate 875-125 mg tablet 1 tab PO BID Qty: 20 0RF No Action lisinopril 20 mg tablet PO Patient Comments: TAKE 1 TABLET BY MOUTH EVERY DAY meloxicam 15 mg tablet 15 mg PO DAILY Qty: 30 2RF tamsulosin [Flomax] 0.4 mg capsule 0.4 mg PO DAILY 90 Days Qty: 90 0RF finasteride [Proscar] 5 mg tablet 5 mg PO DAILY Qty: 90 3RF cefdinir 300 mg capsule 300 mg PO BID 10 Days Qty: 20 0RF sulfamethoxazole-trimethoprim [Bactrim DS] 800-160 mg tablet 1 tab PO BID 5 Days Qty: 10 0RF sulfamethoxazole-trimethoprim 800-160 mg tablet 1 tab PO BID Qty: 28 0RF ibuprofen 800 mg tablet 800 mg PO TID PRN (Reason: pain) 7 Days Qty: 20 0RF ketorolac 10 mg tablet 10 mg PO Q8H PRN (Reason: pain) Qty: 10 0RF oxycodone 5 mg tablet 5 mg PO Q8H PRN (Reason: pain) Qty: 12 0RF ondansetron 4 mg tablet,disintegrating 4 mg PO Q8H PRN (Reason: nausea and vomiting) 4 Days Qty: 12 0RF Referrals Follow up/Referrals: Kylie Gan MD [Primary Care Provider] - See instructions Activity Restrictions/Add. Instructions Additional Instructions/Restrictions: We discussed please follow-up with urology as scheduled. Follow-up with your PCP for no improvement or worsening signs or symptoms or return to the ER as needed Clinical Impressions Clinical Impression: Bladder outlet obstruction, BPH with urinary obstruction Instructions Patient Instructions: DI for Urinary Tract Infection (UTI), DI for Urinary Tract Infection in Children Print Language Print Language: [place] Discharge ED Provider: Carolin Staples General Adult HPI General Chief complaint: Urogenital-Male Stated complaint: Unable to pee,F/C taken out 10/10/24 Time Seen by Provider: 10/12/24 16:29 History of Present Illness HPI narrative: Patient presents for urinary retention. Patient had a prostate ablation 3 weeks ago. He actually had his Wayne catheter removed by urology on Wednesday of this week. Patient states that he has had micturition increasing frequency and s ensation of incomplete emptying since. He denies any fever chills hemoptysis hematochezia melena nausea vomiting diarrhea. He has known history of BPH and I have personally placed multiple Wayne catheters previously. Related Data Home Medications ?Medication ?Instructions ?Recorded ?Confirmed lisinopril 20 mg tablet mg PO 01/24/24 03/06/24 Previous Rx's ?Medication ?Instructions ?Recorded meloxicam 15 mg tablet 15 mg PO DAILY #30 tabs 05/05/23 ibuprofen 800 mg tablet 800 mg PO TID PRN pain 7 days #20 02/11/24 tabs ketorolac 10 mg tablet 10 mg PO Q8H PRN pain #10 tabs 03/02/24 ondansetron 4 mg disintegrating 4 mg PO Q8H PRN nausea and 03/02/24 tablet vomiting 4 days #12 tabs oxycodone 5 mg tablet 5 mg PO Q8H PRN pain #12 tabs 03/02/24 finasteride 5 mg tablet (Proscar) 5 mg PO DAILY #90 tabs 05/15/24 tamsulosin 0.4 mg capsule (Flomax) 0.4 mg PO DAILY 90 days #90 caps 05/15/24 cefdinir 300 mg capsule 300 mg PO BID 10 days #20 caps 07/17/24 sulfamethoxazole 800 1 tab PO BID 5 days #10 tabs 08/28/24 mg-trimethoprim 160 mg tablet (Bactrim DS) sulfamethoxazole 800 1 tab PO BID #28 tabs 09/10/24 mg-trimethoprim 160 mg tablet amoxicillin 875 mg-potassium 1 tab PO BID #20 tabs 10/12/24 clavulanate 125 mg tablet Allergies Allergy/AdvReac Type Severity Reaction Status Date / Time hydrocodone (HYDROCODONE) Allergy Unknown SEVERE Verified 08/28/24 12:57 HEADACHE PFSH PFS Disclaimer: The information contained in this section may have been updated after the patient was seen, as this information can be updated by other users. Medical History Kidney stone Sleep apnea History of COVID-19 Enlarged prostate Sinus headache Diverticulosis Edema HTN (hypertension), benign Surgical History History of colonoscopy History of ankle surgery LEFT History of arthroscopy of both knees Family History Other Cancer Diabetes Social History (Updated 08/28/24 @ 13:34 by VENKATA Cornejo) Smoking Status: Never smoker second hand exposure: No alcohol intake: former counseling provided: none substance use type: denies use current occupational status: employed Travel in the last 8 weeks: None household members: spouse housing: house marital status: caffeine: No Have you lived/traveled outside [place] in past 30 days?: No Contact w/someone who lives/traveled outside US past 30 days?: No Exposure to someone with infectious disease in past 14 days?: No Do you have a fever (greater than 100.4 F or 38 C)?: No Have you tested positive for COVID-19: No Exposed to someone with COVID-19 in past 14 days?: No Do you have a sore throat?: No Do you have a cough?: No Do you have any weakness?: No Do you have any diarrhea?: No Are you experiencing any unusual bleeding?: No Do you have any muscle aches/pain?: No Do you have any abdominal pain?: No Are you experiencing loss of taste or smell?: No Other Medical History Have you received the Flu Vaccine for this season: No Have you received the Pneumonia Vaccine: No ROS Obtained: Yes Systems reviewed as appropriate & no additional complaints except as documented Physical Exam General General appearance: alert and in no apparent distress Respiratory Respiratory exam: Present normal lung sounds bilaterally Cardiovascular Cardiovascular exam: Present regular rate and +S2 Neurological Exam Neurological exam: Present alert and oriented X3 Medical Decision Making Medical Records Medical records reviewed: Yes I reviewed the patient's medical records. Screening: Per USPSTF and CDC recommendations, given the prevalence of disease in our region, it is our hospital?s policy to screen for HIV and viral Hepatitis for all patients aged 18 and over and those with ongoing risk factors. [place] Inquiry Pt receiving controlled substance: No Vital Signs: 10/12/24 16:05 10/12/24 17:10 Temperature 98.4 F 98.3 F Temperature Source Oral Pulse Rate 100 H Pulse Rate [Right] 98 H Respiratory Rate 18 16 Blood Pressure 145/91 H Blood Pressure [Right Arm] 166/98 H Blood Pressure Mean [Right Arm] 120 02 Sat by Pulse Oximetry 99 Lab Data Lab Results 10/12/24 16:51: Urine Color Yellow, Urine Appearance Clear, Urine pH 6.0, Ur Specific [place] >= 1.030, Urine Protein Negative, Urine Glucose (UA) Negative, Urine Ketones Negative, Urine Blood 2+ A, Urine Nitrate Positive A, Urine Bilirubin Negative, Urine Urobilinogen 0.2, Ur Leukocyte Esterase 1+ A, Urine RBC Tntc, Urine WBC Tntc, Ur Squamous Epith Cells Occasional, Urine Bacteria 3+ Orders (Tests/Meds): ORDERS Category Date Time Status Urinalysis and Microscopic Stat Lab 10/12/24 16:51 Completed Urine Culture Stat Micro 10/12/24 16:51 Received Medical Decision Narrative: In summary patient is a 54-year-old male who presents to the emergency department for evaluation of bladder outlet obstruction and urinary retention. Patient is hemodynamically stable upon arrival, afebrile. Physical exam is remarkable for palpable urinary bladder above the sepsis pubis with tenderness to palpation but no rebound or guarding or rigidity.. Differential diagnosis includes bladder outlet obstruction/BPH/urinary retention versus UTI. Initial workup will be conducted with urinalysis for culture as previous culture had multiple organisms with 1 being multidrug-resistant. Initial interventions include insertion of Wayne catheter by myself. Initial workup reviewed by me urinalysis is consistent with urinary tract infection with 3+ bacteria and pyuria. Upon repeat evaluation patient had immediate return of 1.8 L of urine afternoon insertion of Wayne catheter and symptomatic relief. Given this at patient request patient restarted Augmentin as he reported improvement in previous symptoms although I do not know if the bio gram shows whether or not he was resistant to penicillin will await urine culture and tailor antibiotics. Patient to follow-up closely with urology next week. Patient given strict return Procedures Catheter Insertion (Urinary) Prophylactic Antibiotics Given: Yes Bladder Scan/US before Catheterization: Yes Estimated amount of urine (mL): 1,000 Preparation: Povidone-Iodine Type of Catheter Inserted: 2 way Catheter [place] Size: 16 Catheter balloon size (mL): 10 Topical Anesthesia Used: No Results: successfully catheterized-immediate flow Patient Tolerated Procedure: well Complications: none Critical Care Critical Care Time Critical Care Time: No
[2024-10-12 17:03] LABS: Microscopic, Urine URINE MICROSCOPIC (MICROSCOPIC)
[2024-10-12 17:06] LABS: Appearance,Urine CLEAR (Clear); Bilirubin,Urine Negative (Negative); Blood, Urine 2+ (Negative); Color,Urine YELLOW (Yellow); Glucose,Urine (UA) Negative (Negative); Ketones,Urine Negative (Negative); Leukocyte Esterase,Urine 1+ (Negative); Nitrate,Urine POSITIVE (Negative); Protein,Urine Negative (Negative); Specific Gravity, Urine >= 1.030 (1.005-1.030); Urobilinogen,Urine 0.2 EU/dl (0.2)
[2024-10-12 17:10] VITALS: BP 145/91; PULSE 100; RESP 16; TEMP 36.8; O2SAT 99
[2024-10-12 17:42] LABS: Bacteria,Urine 3+ /lpf; RBC,Urine TNTC #/hpf (0-3); Squamous Epithelial Cell,Urine Occasional #/hpf (0-5); WBC,Urine TNTC #/hpf (0-3)
--- NOTE | 2024-10-15 18:31 | PC.NURSE ---
URINE CULTURE DISCUSSED WITH DR TSE, NO NEW ORDERS
== END 2024-10-12 17:13 | disposition home or self-care (01) ==
LOC: ER 16:57
PROVIDERS: Physician Assistant; Emergency Provider Student in an Organized Health Care Education/Training Program; PCP Family Medicine
DX: N40.1 Benign prostatic hyperplasia with lower urinary tract symptoms (principal); N32.0 Bladder-neck obstruction; R33.9 Retention of urine, unspecified
CPT/HCPCS: 51702; 81001; 87086; 87088; 99283

== ENCOUNTER 2024-11-15 08:25 | Outpatient (CLI) | payer BC, SELFPAY ==
--- NOTE | 2024-11-15 08:34 | XR_ITS ---
FINAL REPORT CLINICAL HISTORY: Right Hip Pain COMPARISON: 01/05/2024 FINDINGS: AP and frog leg views of the right hip with an AP view of the pelvis were obtained. There is no acute fracture or dislocation. There is degenerative joint disease of the hips bilaterally asymmetric to the right. Soft tissue calcifications are seen adjacent to the right proximal femur and are unchanged from previous exam. IMPRESSION: Degenerative changes without acute osseous abnormality of the right hip. Reviewed, Interpreted and Dictated by Ana Luisa Raza MD Transcribed by Shanice Castle Authenticated and [facility]
== END 2024-11-15 23:59 | disposition home or self-care (01) ==
LOC: RAD 08:27
PROVIDERS: PCP Family Medicine; Visit Provider Physician Assistant
DX: M25.551 Pain in right hip (principal)
CPT/HCPCS: 73502

== ENCOUNTER 2024-11-27 15:07 | Outpatient (CLI) | payer BC, SELFPAY ==
--- NOTE | 2024-11-27 15:17 | ECG_ITS ---
APPROVED REPORT Exam: Resting ECG HR:85 bpm ECG Measurements Heart Rate 85 AXES NJ 132 P 59 QRSd 98 QRS 27 QT 350 T 15 QTc 392 Conclusion SINUS RHYTHM NORMAL ECG UNCONFIRMED REPORT Electronically signed by : Juliano Sprague MD 11/29/2024 08:51:25
[2024-11-27 16:04] LABS: Basophils # 0.1 K/mm3 (0-0.2); Basophils % 0.6 % (0.1-2.0); Eosinophils # 0.2 K/mm3 (0.0-0.4); Eosinophils % 1.9 % (0.1-12.0); Hematocrit 42.2 % (42.0-52.0); Hemoglobin 13.4 g/dL (14.1-18.0); Lymphocytes # 2.1 K/mm3 (0.7-4.5); Lymphocytes % 24.2 % (10-50); Mean Corpuscular HGB Conc 31.8 g/dL (31.8-35.4); Mean Corpuscular Hemoglobin 29.2 pg (27.0-31.2); Mean Corpuscular Volume 91.9 fl (80-94); Mean Platelet Volume 10.8 fl (7.4-10.4); Monocytes # 0.9 K/mm3 (0.1-1.0); Monocytes % 10.4 % (1.7-9.3); Neutrophils # 5.4 K/mm3 (1.8-7.8); Neutrophils % 62.2 % (37.0-80.0); Platelet Count 207 K/mm3 (142-424); Red Blood Count 4.59 M/mm3 (4.60-6.20); Red Cell Distribution Width 13.3 % (11.5-17.5); White Blood Count 8.6 K/mm3 (4.8-10.8)
[2024-11-27 16:48] LABS: Chloride 106 mmol/L (98-107)
[2024-11-27 16:49] LABS: Potassium 4.7 mmoL/L (3.5-5.1); Sodium 140 mmol/L (136-145)
[2024-11-27 16:52] LABS: Anion Gap 14.7 mEq/L (5-15); Blood Urea Nitrogen 22 mg/dl (9-20); Calcium 9.1 mg/dl (8.4-10.2); Carbon Dioxide 24 mmol/L (22.0-30.0); Estimated Glomerular Filt Rate 69 ml/min (>60); GFR (African American) 84 ML/MIN (>60); Glucose 78 mg/dl (74-100)
== END 2024-11-27 23:59 | disposition home or self-care (01) ==
PROVIDERS: PCP Family Medicine; Visit Provider Nurse Anesthetist, Certified Registered
DX: M25.551 Pain in right hip (principal); G89.29 Other chronic pain
CPT/HCPCS: 36415; 80048; 85025; 93005

== ENCOUNTER 2024-11-29 08:33 | Day surgery (SDC) | payer BC, SELFPAY ==
[2024-11-27 12:45] VITALS: BMI 39.4
--- NOTE | 2024-11-27 13:18 | SUR.PREOP ---
Pt unable to come for PAT appt prior to his procedure. Information reviewed w/ pt via telephone. Pt to come to hospital later this afternoon for bloodwork and EKG. Will review results w/ anesthesia tomorrow.
[2024-11-29 09:18] VITALS: BP 164/93; PULSE 83; RESP 18; TEMP 36.6; O2SAT 97
[2024-11-29] MEDS: LACTATED RINGERS 1000ML 1,000 ML 100 ML IV (09:23)
--- NOTE | 2024-11-29 09:34 | P.PNANES_ITS ---
[facility] Disclaimer: The information contained in this section may have been updated after the patient was seen, as this information can be updated by other users. Medical History Arthritis Kidney stone Sleep apnea History of COVID-19 Enlarged prostate Sinus headache Diverticulosis Edema HTN (hypertension), benign Surgical History History of prostate surgery History of colonoscopy History of ankle surgery History of arthroscopy of both knees Family History Other Cancer Diabetes Social History Smoking Status: Never smoker second hand exposure: No alcohol intake: former counseling provided: none substance use type: denies use current occupational status: employed Travel in the last 8 weeks: None household members: spouse housing: house marital status: caffeine: No Have you lived/traveled outside US in past 30 days?: No Contact w/someone who lives/traveled outside US past 30 days?: No Exposure to someone with infectious disease in past 14 days?: No Do you have a fever (greater than 100.4 F or 38 C)?: No Have you tested positive for COVID-19: No Exposed to someone with COVID-19 in past 14 days?: No Do you have a sore throat?: No Do you have a cough?: No Do you have any weakness?: No Are you experiencing any nausea/vomitting?: No Do you have any diarrhea?: No Are you experiencing any unusual bleeding?: No Do you have any muscle aches/pain?: No Do you have any abdominal pain?: No Are you experiencing loss of taste or smell?: No [facility] Anesthesia Checklist Patient Identification Patient Identification: Arm Band Structural Data Admitted From: Home Planned Operative Procedure/s: Right Hip Injection with Arthrogram Consent for Planned Operative Procedure(s) Verified: Yes Verified Documents: Surgical Consent and History and Physical NPO Status Verified Time NPO: 00:00 Additional verifications Anesthesia Reactions: No Hx Blood Transfusions: No Blood Transfusion Reaction: No Airway Assessment Mallampati Score:: Class II C-Spine Mobility Assessed: Yes TMJ Mobility Assessed: Yes Dentition: Good Dentition Neurological Assessment Level of Consciousness: Awake, Alert and Appropriate Anesthesia Plan Anesthesia Risk discussed: Yes Anesthesia Plan: Verified ASA Class: II Anesthesia Type: MAC
[2024-11-29] MEDS: LIDOCAINE 1% 20ML MDV 20 ML (10:14)
[2024-11-29] MEDS: TRIAMCINOLONE ACET 40MG/ML VIAL 80 MG (10:14)
[2024-11-29 10:23] VITALS: BP 163/91; PULSE 79; RESP 18; TEMP 36.5; O2SAT 92
--- NOTE | 2024-11-29 10:23 | XR_ITS ---
FINAL REPORT CLINICAL HISTORY: HIP INJECTION FLUORO TIME 0:07 COMPARISON: None FINDINGS: FLUOROSCOPY LESS THAN 1 HOUR HISTORY: Right hip injection under fluoroscopy FINDINGS: Fluoroscopic guidance was provided for right hip injection. A single spot film was obtained. 7 seconds of fluoroscopy time were used, with dosage of 4.08 mGy. IMPRESSION: As above. Reviewed, Interpreted and Dictated by Kylie Caceres MD Transcribed by Debra Bacon Authenticated and [facility]
--- NOTE | 2024-11-29 10:23 | EXP.OP.NOTE ---
Date of procedure: 11/29/24 Pre-op Diagnosis:: Right hip osteoarthritis Post-op Diagnosis:: Same Procedure performed:: Right hip injection with arthrogram x-ray guidance for needle placement Surgeon:: Kelvin Wilde DO Packer Insulation(s):: Lawrence HONG [employer] OPERATOR APPRENTICE:: Jermain Doherty Anesthesia: MAC Estimated blood loss (mL): 0 Operative findings:: See dictation Operative note:: Patient identified preoperatively. Right hip marked with a yes and my initials. Transferred operative suite. Given sedation. Right hip was prepped and draped in normal sterile fashion. Once prepped and draped final operative timeout performed to identify proper patient procedure and extremity. Everyone involved in the case agreed. There is no counter indications beginning. X-ray was brought into identify the hip joint. 18-gauge spinal needle was used under direct x-ray visualization for proper trajectory 18-gauge needle was then placed inside the hip capsule within the hip capsule contrast was utilized and x-ray was utilized for needle localization. Contrast was injected confirmed to be within the hip capsule. And then 80 mg Depo-Medrol 3 cc 1% lidocaine injected into the hip capsule. Needle removed Band-Aid placed. Patient waken sedation taken recovery stable condition. Condition: stable Disposition: PACU Complications:: None apparent
[2024-11-29 10:33] VITALS: BP 139/80; PULSE 86; RESP 18; O2SAT 94
[2024-11-29 10:43] VITALS: BP 133/86; PULSE 82; RESP 18; O2SAT 95
[2024-11-29 10:53] VITALS: BP 151/86; PULSE 76; RESP 18; O2SAT 96
== END 2024-11-29 11:00 | disposition home or self-care (01) ==
PROVIDERS: PCP Family Medicine; Visit Provider Orthopaedic Surgery
PROC: 3E0U3GC Introduction of Other Therapeutic Substance into Joints, Percutaneous Approach (ICD-10-PCS; CPT 20610; principal; 2024-11-29 10:15)
DX: M16.11 Unilateral primary osteoarthritis, right hip (principal); M25.551 Pain in right hip; Z79.899 Other long term (current) drug therapy
CPT/HCPCS: 20610; 73502; 76000; 77002; J3301; J7120

== ENCOUNTER 2024-12-20 14:29 | Outpatient (CLI) | payer BC, SELFPAY ==
--- NOTE | 2024-12-20 14:38 | MR_ITS ---
FINAL REPORT TECHNIQUE: Multiplanar MRI without gadolinium enhancement CLINICAL HISTORY: pt is 2 years post op ankle sx, still having pain COMPARISON: 03/09/2022 FINDINGS: Articular cartilage: There is moderate degenerative change of the talonavicular joint, worse than seen on the prior MRI of 2021. Marrow signal: There is hardware artifact in the lateral malleolus. No bone marrow edema or fracture line is identified. Joint fluid: Small to moderate joint effusion without evidence of a loose body. Tendons: There has been interval resolution in the intrasubstance tear and fluid in the posterior tibial tendon since the prior exam. Ligaments: There is severe attenuation of the ATFL, with presumed previous surgical repair. This may represent a recurrent tear, although it more likely represents a chronic partial tear. Plantar fascia: The plantar fasciitis noted on the prior exam has resolved. IMPRESSION: No acute ligament or tendon tear. There has been progression of the moderate degenerative change of the talonavicular joint. Severe attenuation of the ATFL, which may represent a recurrent tear although this more likely represents a chronic partial tear. Resolved plantar fasciitis when compared to the prior exam. Reviewed, Interpreted and Dictated by Kylie Caceres MD Transcribed by Debra Bacon Authenticated and [facility]
== END 2024-12-20 23:59 | disposition home or self-care (01) ==
LOC: RAD 14:29
PROVIDERS: PCP Family Medicine; Visit Provider Orthopaedic Surgery
DX: M25.572 Pain in left ankle and joints of left foot (principal)
CPT/HCPCS: 73721

== ENCOUNTER 2025-08-27 09:00 | Outpatient (RCR) | payer BC, SELFPAY | END 2025-08-27 23:59 | disposition home or self-care (01) | LOC: PT 09:00 | PROVIDERS: PCP Family Medicine; Visit Provider Student in an Organized Health Care Education/Training Program | DX: M16.11 Unilateral primary osteoarthritis, right hip (principal); Z96.641 Presence of right artificial hip joint | CPT/HCPCS: 97110; 97162; 97530 ==

== ENCOUNTER 2025-09-17 09:00 | Outpatient (RCR) | payer BC, SELFPAY | END 2025-09-17 23:59 | disposition home or self-care (01) | LOC: PT 09:00 | PROVIDERS: PCP Family Medicine; Visit Provider Student in an Organized Health Care Education/Training Program | DX: M13.859 Other specified arthritis, unspecified hip (principal) | CPT/HCPCS: 97110; 97530 ==